=== PATIENT | female | born 1965 | race Two or more races ===

== ENCOUNTER 2016-09-09 22:38 | Emergency (ER) | payer OTHER ==
[~2016-09-09] VITALS: Ht 154.9 cm; Wt 80.7 kg
[2016-09-10] MEDS ORDERED: HYDROcodone-ACET 10/325MG TAB PO ONE (01:00)
[2016-09-10] MEDS ORDERED: KETOROLAC TROMETH 60MG/2ML VIAL IM ONE (01:00)
[2016-09-10 01:23] VITALS: BP 168/98
== END 2016-09-10 01:25 | disposition home or self-care (01) ==
LOC: ER 22:45
DX: M19.90 Unspecified osteoarthritis, unspecified site (principal); G89.29 Other chronic pain; M54.9 Dorsalgia, unspecified; J45.909 Unspecified asthma, uncomplicated; I10 Essential (primary) hypertension
CPT/HCPCS: 96372; 99283; J1885

== ENCOUNTER 2017-01-17 20:14 | Emergency (ER) | payer OTHER ==
[~2017-01-17] VITALS: Ht 157.5 cm; Wt 79.4 kg
[2017-01-17 20:30] VITALS: BP 155/99
[2017-01-17 20:59] LABS: Basophils # (auto) 0.1 uL; Basophils % (auto) 0.8 % (0.0-2.0); Eosinophils # (auto) 0.3 uL; Eosinophils % (auto) 2.5 % (0.0-7.0); Hematocrit 34.1 % (36.0-46.0); Hemoglobin 11.3 g/dL (12.2-16.2); Lymphocytes # (auto) 1.8 uL; Lymphocytes % (auto) 14.8 % (10.0-50.0); Mean Corpuscular Hemoglobin 27.8 pg (28.0-32.0); Mean Corpuscular Hgb Conc. 33.2 g/dL (32.0-36.0); Mean Corpuscular Volume 83.8 fL (80.0-100.0); Mean Platelet Volume 7.3 fL (6.9-10.8); Monocytes # (auto) 0.8 uL; Monocytes % (auto) 6.7 % (0.0-12.0); Neutrophils # (auto) 9.1 uL; Neutrophils % (auto) 75.2 % (37.0-80.0); Nucleated Red Blood Cells % 0.1 %; Platelet Count (auto) 333 10^3/uL (140-450); Red Cell Distribution Width 13.9 % (11.8-14.3); White Blood Cell 12.1 10^3/uL (4.4-10.8)
[2017-01-17 21:13] LABS: Urine Bilirubin Negative (Negative); Urine Blood Negative /uL (Negative); Urine Color Yellow (Yellow); Urine Glucose Normal (Normal); Urine Ketone Negative (Negative); Urine Nitrite Negative (Negative); Urine RBC 1 /hpf (0 - 4); Urine Squamous Epithelial Cell FEW /hpf (<5); Urine Urobilinogen Normal (Negative); Urine pH 5.5 (5.0-8.0)
[2017-01-17 21:16] LABS: Albumin 3.3 g/dL (3.4-5.0); Anion Gap 10 (5-15); Aspartate Aminotransferase 9 U/L (15-37); BUN/Creatinine Ratio 29.7; Blood Urea Nitrogen 22 mg/dL (7-18); Calcium 8.8 mg/dL (8.5-10.1); Carbon Dioxide 24 mmol/L (21-32); Chloride 106 mmol/L (98-107); GFR African American 106 mL/min; GFR Non-African American 87 mL/min; Glucose 179 mg/dL (74-106); Potassium 4.2 mmol/L (3.5-5.1); Sodium 140 mmol/L (136-145)
[2017-01-17 21:20] LABS: Alkaline Phosphatase 169 U/L (45-117); Bilirubin, Total < 0.1 mg/dL (0.2-1.0); Total Protein 7.3 g/dL (6.4-8.2)
== END 2017-01-17 23:45 | disposition left against medical advice (07) ==
LOC: EDBD 20:14 → ER 20:20
DX: M54.5 Low back pain (principal); Z53.21 Procedure and treatment not carried out due to patient leaving prior to being seen by health care provider
CPT/HCPCS: 36415; 80053; 81001; 84484; 85025; 93005

== ENCOUNTER 2023-03-25 01:21 | Inpatient (IN) | payer MEDICAID, OTHER ==
[~2023-03-25] VITALS: Ht 154.9 cm; Wt 77.0 kg
[2023-03-25 02:03] VITALS: PULSE 89; RESP 13; O2SAT 97
[2023-03-25 02:30] LABS: Basophils # (auto) 0.1 10 ^3/uL (0-0.2); Eosinophils # (auto) 0.4 10 ^3/uL (0-0.8); Eosinophils % (auto) 5.1 % (0.0-7.0); Hematocrit 29.4 % (36.0-46.0); Hemoglobin 9.6 g/dL (12.2-16.2); Lymphocytes # (auto) 1.1 10 ^3/uL (0.4-5.4); Lymphocytes % (auto) 13.4 % (10.0-50.0); Mean Corpuscular Hemoglobin 27.3 pg (28.0-32.0); Mean Corpuscular Hgb Conc. 32.8 g/dL (32.0-36.0); Mean Corpuscular Volume 83.4 fL (80.0-100.0); Monocytes # (auto) 0.8 10 ^3/uL (0-1.3); Monocytes % (auto) 9.5 % (0.0-12.0); Neutrophils # (auto) 5.6 10 ^3/uL (1.6-8.6); Red Blood Cells 3.53 10^6/uL (4.0-5.20)
[2023-03-25 02:46] LABS: Alanine Aminotransferase 17 U/L (7-40); Albumin 4.1 g/dL (3.2-4.8); Alkaline Phosphatase 173 U/L (46-116); Anion Gap 9 (5-15); Aspartate Aminotransferase 17 U/L (13-40); BUN/Creatinine Ratio 9.7 (10.0-20.0); Bilirubin, Total 0.2 mg/dL (0.2-1.0); Blood Urea Nitrogen 19 mg/dL (9-23); Carbon Dioxide 24 mmol/L (20-30); Chloride 106 mmol/L (98-107); Glucose 222 mg/dL (74-106); Partial Thromboplastin Time 31.2 SEC (24.5-34.5); Potassium 3.8 mmol/L (3.5-5.1); Prothrombin Time 10.5 sec (9.3-11.8); Sodium 139 mmol/L (136-145); Total Protein 7.2 g/dL (5.7-8.2)
[2023-03-25] MEDS ORDERED: SODIUM CHLORIDE 0.9% 1,000 ML IV ONE (05:30)
[2023-03-25 06:26] LABS: INR 0.99 (0.9-1.15); Partial Thromboplastin Time 30.5 SEC (24.5-34.5); Prothrombin Time 10.4 sec (9.3-11.8)
[2023-03-25 06:37] LABS: Basophils # (auto) 0.1 10 ^3/uL (0-0.2); Basophils % (auto) 0.7 % (0.0-2.0); Eosinophils # (auto) 0.4 10 ^3/uL (0-0.8); Hemoglobin 9.1 g/dL (12.2-16.2); Lymphocytes # (auto) 1.2 10 ^3/uL (0.4-5.4); Mean Corpuscular Volume 82.5 fL (80.0-100.0); Monocytes # (auto) 0.7 10 ^3/uL (0-1.3); Neutrophils % (auto) 69.2 % (37.0-80.0)
[2023-03-25 06:40] LABS: Eosinophils % (auto) 4.8 % (0.0-7.0); Hematocrit 28.1 % (36.0-46.0); Lymphocytes % (auto) 15.6 % (10.0-50.0); Mean Corpuscular Hemoglobin 26.6 pg (28.0-32.0); Mean Corpuscular Hgb Conc. 32.3 g/dL (32.0-36.0); Monocytes % (auto) 9.7 % (0.0-12.0); Neutrophils # (auto) 5.3 10 ^3/uL (1.6-8.6); Red Cell Distribution Width 15.9 % (11.8-14.3); White Blood Cell 7.7 10^3/uL (4.4-10.8)
[2023-03-25 10:02] VITALS: PULSE 88; RESP 17; O2SAT 94
[2023-03-25 10:58] LABS: Urine Bacteria FEW /hpf (None Seen); Urine Blood 1+ /uL (Negative); Urine Clarity HAZY (Clear); Urine Color Yellow (Yellow); Urine Mucus FEW (None Seen); Urine Protein, UAD 1+ (Negative); Urine Specific Gravity 1.021 (1.001-1.035); Urine Urobilinogen Normal (Negative); Urine WBC 45 /hpf (0 - 5)
[2023-03-25] MEDS ORDERED: KETOROLAC TROMETH 30 MG/ML 1ML VIAL IV ONE (12:45)
[2023-03-25] MEDS ORDERED: MORPHINE SULFATE INJ 2 MG/ml SYRG IV PRN (13:00)
[2023-03-25] MEDS ORDERED: MECLIZINE HCL 25 MG TAB PO PRN (13:00)
[2023-03-25] MEDS ORDERED: cefTRIAXone 1GM/50ML D5W 50 ML IV ONE (13:00)
[2023-03-25] MEDS ORDERED: ONDANSETRON HCL 4 MG/2 ML VIAL IV PRN (13:00)
[2023-03-25] MEDS ORDERED: NITROGLYCERIN 0.4 MG SL TAB SL PRN (13:00)
[2023-03-25] MEDS ORDERED: ACETAMINOPHEN 325 MG TAB PO PRN (13:00)
[2023-03-25 13:27] LABS: Triglycerides 184 mg/dL (< 150)
[2023-03-25 13:28] LABS: LDL Cholesterol 140 mg/dL (< 100)
[2023-03-25 13:29] LABS: Cholesterol 207 mg/dL (< 200); HDL Cholesterol 47 mg/dL (40-59)
[2023-03-25 13:41] LABS: Stomatocytes Few; Tear Drop Cells FEW
[2023-03-25 13:43] LABS: Platelet Estimate Adequate
[2023-03-25] MEDS: SODIUM CHLORIDE 0.9% 1,000 ML IV SCH (14:15)
[2023-03-25] MEDS ORDERED: ALBUTEROL MEDNEB 2.5 mg/3ml NEB NEB PRN (14:15)
[2023-03-25 15:33] VITALS: BP 117/84; PULSE 90; RESP 16; RESP 20; TEMP 98.2; O2SAT 95; O2SAT 96
[2023-03-25 17:00] VITALS: BP 117/84; PULSE 90; RESP 20; TEMP 98.2; O2SAT 96
[2023-03-25 20:00] VITALS: PULSE 97
[2023-03-25] MEDS: HYDROcodone-ACET 5/325MG TAB PO PRN (20:33)
[2023-03-25] MEDS: ATORVASTATIN 20 MG TAB PO SCH (21:25)
[2023-03-25 22:00] VITALS: BP 165/95; PULSE 89; RESP 22; TEMP 98.3; O2SAT 98
[2023-03-26] VITALS (8 sets, daily range): BP systolic 145–165; BP diastolic 81–95; PULSE 84–101; RESP 18–22; TEMP 98.3–98.9; O2SAT 95–99
[2023-03-26] MEDS: SODIUM CHLORIDE 0.9% 1,000 ML IV SCH ×2 (03:35→16:55)
[2023-03-26] MEDS: HYDROcodone-ACET 5/325MG TAB PO PRN (06:01)
[2023-03-26 07:02] LABS: Basophils # (auto) 0.1 10 ^3/uL (0-0.2); Basophils % (auto) 0.7 % (0.0-2.0); Eosinophils # (auto) 0.5 10 ^3/uL (0-0.8); Eosinophils % (auto) 5.8 % (0.0-7.0); Hematocrit 30.1 % (36.0-46.0); Hemoglobin 9.8 g/dL (12.2-16.2); Lymphocytes # (auto) 1.7 10 ^3/uL (0.4-5.4); Lymphocytes % (auto) 18.5 % (10.0-50.0); Mean Corpuscular Hgb Conc. 32.5 g/dL (32.0-36.0); Mean Corpuscular Volume 83.1 fL (80.0-100.0); Monocytes # (auto) 1.2 10 ^3/uL (0-1.3); Monocytes % (auto) 12.8 % (0.0-12.0); Neutrophils # (auto) 5.7 10 ^3/uL (1.6-8.6); Neutrophils % (auto) 62.2 % (37.0-80.0); Red Blood Cells 3.63 10^6/uL (4.0-5.20); Red Cell Distribution Width 15.6 % (11.8-14.3); White Blood Cell 9.2 10^3/uL (4.4-10.8)
[2023-03-26 07:51] LABS: Alanine Aminotransferase 16 U/L (7-40); Albumin 4.1 g/dL (3.2-4.8); Alkaline Phosphatase 162 U/L (46-116); Anion Gap 9 (5-15); Aspartate Aminotransferase 15 U/L (13-40); BUN/Creatinine Ratio 11.3 (10.0-20.0); Blood Urea Nitrogen 17 mg/dL (9-23); Calcium 9.4 mg/dL (8.5-10.1); Carbon Dioxide 23 mmol/L (20-30); Chloride 105 mmol/L (98-107); Glucose 181 mg/dL (74-106); Potassium 3.9 mmol/L (3.5-5.1); Sodium 137 mmol/L (136-145)
[2023-03-26 07:52] LABS: Bilirubin, Total 0.3 mg/dL (0.2-1.0); Total Protein 7.5 g/dL (5.7-8.2)
[2023-03-26] MEDS: cefTRIAXone 1GM/50ML D5W 50 ML IV SCH (09:28)
[2023-03-26] MEDS ORDERED: ENOXAPARIN SOD 40 MG/0.4 ML SYRINGE SC SCH (10:00)
[2023-03-26] MEDS ORDERED: QUEtiapine FUMARATE 25 MG TAB PO ONE (15:00)
[2023-03-26] MEDS: HALOPERIDOL LACTATE 5 MG/ML INJ VIAL IM PRN ×2 (16:03→23:51)
[2023-03-26 17:46] LABS: Protein, Urine 85.8 mg/dL (0.0-11.9)
[2023-03-26 17:49] LABS: Amphetamine Screen, Urine Neg (NEGATIVE); Barbiturate Scree,Urine Neg (NEGATIVE); Benzodiazephine Screen, Urine Neg (NEGATIVE); Cocaine Screen, Urine Neg (NEGATIVE); Creatinine, Urine 76.63 mg/dL (30.0-125.0); Creatinine, Urine 76.79 mg/dL (30.0-125.0); Urine Protein/Creatinine Ratio 1.15
[2023-03-26 17:50] LABS: Cannabinoid Screen, Urine Neg (NEGATIVE); Opiate Scree,Urine Neg (NEGATIVE); Phencyclidine Screen, Urine Neg (NEGATIVE)
[2023-03-26] MEDS ORDERED: FLUO40CA PO (18:08)
[2023-03-26] MEDS ORDERED: ALPR0.5T8 PO (18:08)
[2023-03-26] MEDS ORDERED: QUET400T13 PO (18:08)
[2023-03-26] MEDS ORDERED: LAMO200T34 PO (18:08)
[2023-03-26] MEDS ORDERED: DIVA500T13 PO (18:08)
[2023-03-26] MEDS ORDERED: BUPR300T28 PO (18:08)
[2023-03-26] MEDS ORDERED: LORazepam 2MG/ML-1ML VIAL IV PRN (21:45)
[2023-03-26] MEDS: ATORVASTATIN 20 MG TAB PO SCH (22:04)
[2023-03-27] VITALS (9 sets, daily range): BP systolic 111–211; BP diastolic 42–98; PULSE 71–115; RESP 16–20; TEMP 37.2; O2SAT 94–100
[2023-03-27] MEDS ORDERED: HALOPERIDOL LACTATE 5 MG/ML INJ VIAL IM ONE (02:00)
[2023-03-27] MEDS: SODIUM CHLORIDE 0.9% 1,000 ML IV SCH (05:02)
[2023-03-27 05:50] LABS: Chloride 106 mmol/L (98-107); Sodium 138 mmol/L (136-145)
[2023-03-27 05:51] LABS: Anion Gap 11 (5-15); Carbon Dioxide 21 mmol/L (20-30)
[2023-03-27 05:52] LABS: Calcium 9.4 mg/dL (8.5-10.1)
[2023-03-27 05:56] LABS: BUN/Creatinine Ratio 9.2 (10.0-20.0); Blood Urea Nitrogen 14 mg/dL (9-23); Glucose 218 mg/dL (74-106)
[2023-03-27] MEDS ORDERED: ALPRAZolam 0.5 MG TAB PO PRN (10:00)
[2023-03-27] MEDS ORDERED: QUEtiapine FUMARATE 100 MG TAB PO SCH (10:00)
[2023-03-27] MEDS: buPROPion HCL 75 MG TAB PO SCH (10:19)
[2023-03-27] MEDS: FLUoxetine HCL 20 MG CAP PO SCH (10:19)
[2023-03-27] MEDS: lamoTRIgine 100 MG TAB PO SCH ×2 (10:19→21:18)
[2023-03-27] MEDS: cefTRIAXone 1GM/50ML D5W 50 ML IV SCH (10:27)
[2023-03-27] MEDS ORDERED: PANTOPRAZOLE 40 MG/10 ML VIAL INJ IV ONE (11:30)
[2023-03-27] MEDS ORDERED: THIAMINE 100mg/ml INJ (200mg/2ml VIAL) IV ONE (11:30)
[2023-03-27] MEDS ORDERED: SODIUM CHLORIDE 0.9% 1,000 ML IV SCH (11:30)
[2023-03-27] MEDS ORDERED: DEXTROSE (50%) 50ML SYRG IV PRN (11:30)
[2023-03-27] MEDS: ACCU-CHEK COMFORT CURVE STRIP VI SCH ×3 (12:24→21:27)
[2023-03-27] MEDS: InsuLIN REG 1unit/0.01ml Soln (100units/ml) SC SCH ×3 (12:27→21:18)
[2023-03-27] MEDS: hydrALAZINE HCL 20 MG/ML VL IV PRN (12:29)
[2023-03-27] MEDS: HALOPERIDOL LACTATE 5 MG/ML INJ VIAL IM PRN (21:29)
[2023-03-27] MEDS ORDERED: LORazepam 2MG/ML-1ML VIAL IV PRN (23:15)
[2023-03-28] VITALS (7 sets, daily range): BP systolic 117–135; BP diastolic 57–86; PULSE 89–97; RESP 18–20; TEMP 97.9–98.8; O2SAT 92–95
[2023-03-28 00:12] LABS: Folate (Folic Acid) 12.54 ng/mL (>5.38)
[2023-03-28] MEDS: HYDROcodone-ACET 5/325MG TAB PO PRN (04:27)
[2023-03-28] MEDS: InsuLIN REG 1unit/0.01ml Soln (100units/ml) SC SCH ×4 (06:04→23:10)
[2023-03-28] MEDS: ACCU-CHEK COMFORT CURVE STRIP VI SCH ×4 (06:05→23:08)
[2023-03-28 06:06] LABS: Basophils # (auto) 0.1 10 ^3/uL (0-0.2); Basophils % (auto) 0.6 % (0.0-2.0); Eosinophils # (auto) 0.5 10 ^3/uL (0-0.8); Eosinophils % (auto) 5.8 % (0.0-7.0); Hematocrit 28.2 % (36.0-46.0); Hemoglobin 9.3 g/dL (12.2-16.2); Lymphocytes # (auto) 1.3 10 ^3/uL (0.4-5.4); Lymphocytes % (auto) 13.8 % (10.0-50.0); Mean Corpuscular Hemoglobin 27.5 pg (28.0-32.0); Mean Corpuscular Hgb Conc. 33.1 g/dL (32.0-36.0); Mean Corpuscular Volume 83.3 fL (80.0-100.0); Monocytes % (auto) 11.3 % (0.0-12.0); Neutrophils # (auto) 6.3 10 ^3/uL (1.6-8.6); Neutrophils % (auto) 68.5 % (37.0-80.0); Red Blood Cells 3.39 10^6/uL (4.0-5.20); White Blood Cell 9.1 10^3/uL (4.4-10.8)
[2023-03-28 06:21] LABS: Anion Gap 9 (5-15); Carbon Dioxide 22 mmol/L (20-30); Chloride 107 mmol/L (98-107); Potassium 3.7 mmol/L (3.5-5.1); Sodium 138 mmol/L (136-145)
[2023-03-28 06:22] LABS: Calcium 8.7 mg/dL (8.7-10.4)
[2023-03-28 06:26] LABS: Glucose 172 mg/dL (74-106)
[2023-03-28 06:27] LABS: BUN/Creatinine Ratio 8.5 (10.0-20.0); Blood Urea Nitrogen 12 mg/dL (9-23)
[2023-03-28 06:29] LABS: % Iron Saturation 8.9 % (15-50)
[2023-03-28 06:30] LABS: Folate (Folic Acid) 11.92 ng/mL (>5.38)
[2023-03-28] MEDS ORDERED: NALOXONE HCL 0.4 MG/ML VIAL ONE (08:44)
[2023-03-28] MEDS ORDERED: MIDAZOLAM HCL 5 MG/ML-1ML VIAL ONE (08:45)
[2023-03-28] MEDS ORDERED: SODIUM CHLORIDE LOCK 0 ML ONE (08:45)
[2023-03-28] MEDS ORDERED: LIDOCAINE VISCOUS 2% 15ML UD ONE (08:45)
[2023-03-28] MEDS ORDERED: FLUMAZENIL 0.1 MG/ML INJ 10ML MDV IV ONE (08:45)
[2023-03-28] MEDS ORDERED: fentaNYL CITRATE 100 MCG/2 ML VL ONE (08:45)
[2023-03-28] MEDS ORDERED: diphenhdrAMINE HCL 50 MG/1 ML VL ONE (08:45)
[2023-03-28] MEDS: buPROPion HCL 75 MG TAB PO SCH (10:00)
[2023-03-28] MEDS: lamoTRIgine 100 MG TAB PO SCH ×2 (10:00→20:48)
[2023-03-28] MEDS: FLUoxetine HCL 20 MG CAP PO SCH (10:00)
[2023-03-28] MEDS: cefTRIAXone 1GM/50ML D5W 50 ML IV SCH (10:54)
[2023-03-28] MEDS: PANTOPRAZOLE 40 MG/10 ML VIAL INJ IV SCH (10:54)
[2023-03-28] MEDS: THIAMINE 100mg/ml INJ (200mg/2ml VIAL) IV SCH (10:56)
[2023-03-28] MEDS: FERROUS SULFATE 325mg EC TAB PO SCH (18:00)
[2023-03-29] VITALS (7 sets, daily range): BP systolic 131–142; BP diastolic 64–80; PULSE 90–107; RESP 18–20; TEMP 98–98.9; O2SAT 95–100
[2023-03-29 05:53] LABS: Basophils # (auto) 0.1 10 ^3/uL (0-0.2); Eosinophils # (auto) 0.5 10 ^3/uL (0-0.8); Lymphocytes # (auto) 1.1 10 ^3/uL (0.4-5.4); Monocytes # (auto) 0.8 10 ^3/uL (0-1.3)
[2023-03-29 05:57] LABS: Basophils % (auto) 0.8 % (0.0-2.0); Eosinophils % (auto) 6.4 % (0.0-7.0); Hematocrit 29.7 % (36.0-46.0); Hemoglobin 9.5 g/dL (12.2-16.2); Lymphocytes % (auto) 13.4 % (10.0-50.0); Mean Corpuscular Hemoglobin 26.8 pg (28.0-32.0); Mean Corpuscular Volume 83.8 fL (80.0-100.0); Monocytes % (auto) 9.8 % (0.0-12.0); Neutrophils # (auto) 5.7 10 ^3/uL (1.6-8.6); Neutrophils % (auto) 69.6 % (37.0-80.0); Red Blood Cells 3.54 10^6/uL (4.0-5.20); Red Cell Distribution Width 15.9 % (11.8-14.3); White Blood Cell 8.2 10^3/uL (4.4-10.8)
[2023-03-29 06:06] LABS: Chloride 109 mmol/L (98-107); Potassium 3.8 mmol/L (3.5-5.1); Sodium 139 mmol/L (136-145)
[2023-03-29 06:08] LABS: Anion Gap 8 (5-15); Calcium 9.1 mg/dL (8.5-10.1); Carbon Dioxide 22 mmol/L (20-30)
[2023-03-29] MEDS: ACCU-CHEK COMFORT CURVE STRIP VI SCH ×4 (06:11→23:32)
[2023-03-29] MEDS: InsuLIN REG 1unit/0.01ml Soln (100units/ml) SC SCH ×4 (06:12→23:37)
[2023-03-29 06:13] LABS: BUN/Creatinine Ratio 7.7 (10.0-20.0); Blood Urea Nitrogen 11 mg/dL (9-23); Glucose 170 mg/dL (74-106)
[2023-03-29] MEDS: FERROUS SULFATE 325mg EC TAB PO SCH ×2 (09:17→17:38)
[2023-03-29] MEDS: cefTRIAXone 1GM/50ML D5W 50 ML IV SCH (09:18)
[2023-03-29] MEDS: buPROPion HCL 75 MG TAB PO SCH (09:26)
[2023-03-29] MEDS: lamoTRIgine 100 MG TAB PO SCH ×2 (09:26→20:59)
[2023-03-29] MEDS: FLUoxetine HCL 20 MG CAP PO SCH (09:26)
[2023-03-29] MEDS: PANTOPRAZOLE 40 MG/10 ML VIAL INJ IV SCH (09:30)
[2023-03-29] MEDS: THIAMINE 100mg/ml INJ (200mg/2ml VIAL) IV SCH (09:31)
[2023-03-29] MEDS ORDERED: EZ PAQUE SUSP 12OZ BTL ONE (14:32)
[2023-03-29] MEDS ORDERED: BARIUM SULFATE 98% 340 GM PWDR ONE (14:32)
[2023-03-29] MEDS ORDERED: GASTROGRAFIN 120 ML SOL ONE (14:59)
[2023-03-29] MEDS: HYDROcodone-ACET 5/325MG TAB PO PRN (22:41)
[2023-03-30 04:55] VITALS: BP 141/69; PULSE 86; RESP 18; TEMP 98.1; O2SAT 97
[2023-03-30] MEDS: ACCU-CHEK COMFORT CURVE STRIP VI SCH ×2 (06:22→12:00)
[2023-03-30] MEDS: InsuLIN REG 1unit/0.01ml Soln (100units/ml) SC SCH ×2 (06:26→11:26)
[2023-03-30 08:00] VITALS: PULSE 88
[2023-03-30 09:04] VITALS: BP 151/82; PULSE 86; RESP 16; TEMP 98.6; O2SAT 93
[2023-03-30] MEDS ORDERED: THIAMINE HCL 100 MG TAB PO SCH (10:00)
[2023-03-30] MEDS ORDERED: PANTOPRAZOLE 40 MG TAB PO SCH (10:00)
[2023-03-30] MEDS: lamoTRIgine 100 MG TAB PO SCH (10:03)
[2023-03-30] MEDS: FERROUS SULFATE 325mg EC TAB PO SCH (10:03)
[2023-03-30] MEDS: FLUoxetine HCL 20 MG CAP PO SCH (10:04)
[2023-03-30] MEDS: buPROPion HCL 75 MG TAB PO SCH (10:04)
[2023-03-30] MEDS: cefTRIAXone 1GM/50ML D5W 50 ML IV SCH (10:05)
[2023-03-30] MEDS: HYDROcodone-ACET 5/325MG TAB PO PRN (10:19)
[2023-03-30] MEDS: hydrALAZINE HCL 20 MG/ML VL IV PRN (10:35)
[2023-03-30] MEDS ORDERED: PANT40T PO (11:06)
[2023-03-30] MEDS ORDERED: METF-370 PO (11:12)
[2023-03-30 12:59] VITALS: BP 135/79; PULSE 96; RESP 18; TEMP 98.1; O2SAT 96
== END 2023-03-30 17:45 | disposition home health service (06) | DRG 469 ==
LOC: ER 01:21 → EDBD 01:21 → TELE 12:52 → TELE-WESTW 14:53
PROVIDERS: ADMIT Nurse Practitioner Family; ATTEND Internal Medicine
DX: N17.0 Acute kidney failure with tubular necrosis (principal); G92.8 Other toxic encephalopathy; I13.0 Hypertensive heart and chronic kidney disease with heart failure and stage 1 through stage 4 chronic kidney disease, or unspecified chronic kidney disease; D63.8 Anemia in other chronic diseases classified elsewhere; I50.40 Unspecified combined systolic (congestive) and diastolic (congestive) heart failure; E11.22 Type 2 diabetes mellitus with diabetic chronic kidney disease; E86.9 Volume depletion, unspecified; N39.0 Urinary tract infection, site not specified; R29.6 Repeated falls; F31.32 Bipolar disorder, current episode depressed, moderate; E66.01 Morbid (severe) obesity due to excess calories; F20.9 Schizophrenia, unspecified; F41.9 Anxiety disorder, unspecified; K56.41 Fecal impaction; J45.909 Unspecified asthma, uncomplicated; N18.32 Chronic kidney disease, stage 3b; K22.89 Other specified disease of esophagus; K21.9 Gastro-esophageal reflux disease without esophagitis; E11.65 Type 2 diabetes mellitus with hyperglycemia; Z83.3 Family history of diabetes mellitus; Z79.899 Other long term (current) drug therapy; Z68.32 Body mass index [BMI] 32.0-32.9, adult; Z91.81 History of falling; Z90.710 Acquired absence of both cervix and uterus; Z91.148 Patient's other noncompliance with medication regimen for other reason
CPT/HCPCS: 36415; 70450; 70551; 71045; 71250; 73502; 74176; 74220; 80048; 80053; 80061; 80164; 80307; 81001; 82140; 82270; 82570; 82607; 82746; 82962; 83036; 83540; 83550; 83735; 83880; 83930; 84156; 84300; 84443; 84484; 85025; 85610; 85730; 87086; 93005; 93306; 93886; 96361; 96365; 96375; 97110; 97116; 97163; 97530; A4565; C9113; G0378; J0696; J1815; J1885; J2250

== ENCOUNTER 2023-04-01 11:09 | Inpatient (IN) | payer MEDICAID ==
[~2023-04-01] VITALS: Ht 154.9 cm; Wt 81.9 kg
[~2023-04-01 11:09] MED LIST: ALPR0.5T8 PO; BUPR300T28 PO; DIVA500T13 PO; FLUO40CA PO; LAMO200T34 PO; METF-370 PO; PANT40T PO; QUET400T13 PO
[2023-04-01] MEDS ORDERED: ONDANSETRON ODT 4 MG TAB PO ONE (11:30)
[2023-04-01] MEDS ORDERED: MECLIZINE HCL 25 MG TAB PO ONE (11:30)
[2023-04-01 11:54] LABS: Basophils # (auto) 0 10 ^3/uL (0-0.2); Basophils % (auto) 0.4 % (0.0-2.0); Eosinophils # (auto) 0.5 10 ^3/uL (0-0.8); Eosinophils % (auto) 5.4 % (0.0-7.0); Hematocrit 29.1 % (36.0-46.0); Hemoglobin 9.5 g/dL (12.2-16.2); Lymphocytes # (auto) 0.7 10 ^3/uL (0.4-5.4); Mean Corpuscular Hemoglobin 27.4 pg (28.0-32.0); Mean Corpuscular Hgb Conc. 32.7 g/dL (32.0-36.0); Mean Corpuscular Volume 83.8 fL (80.0-100.0); Monocytes # (auto) 0.7 10 ^3/uL (0-1.3); Monocytes % (auto) 7.4 % (0.0-12.0); Neutrophils # (auto) 7.2 10 ^3/uL (1.6-8.6); Neutrophils % (auto) 78.8 % (37.0-80.0); Red Blood Cells 3.47 10^6/uL (4.0-5.20); Red Cell Distribution Width 16.5 % (11.8-14.3); White Blood Cell 9.2 10^3/uL (4.4-10.8)
[2023-04-01 12:08] LABS: Acetaminophen < 2.0 UG/ML (10.0-20.0); Alanine Aminotransferase 10 U/L (7-40); Albumin 4.1 g/dL (3.2-4.8); Alkaline Phosphatase 187 U/L (46-116); Anion Gap 9 (5-15); Aspartate Aminotransferase 12 U/L (13-40); BUN/Creatinine Ratio 9.9 (10.0-20.0); Blood Alcohol < 3.0 mg/dL (<10); Blood Urea Nitrogen 17 mg/dL (9-23); Calcium 8.7 mg/dL (8.7-10.4); Carbon Dioxide 23 mmol/L (20-30); Chloride 107 mmol/L (98-107); Glucose 271 mg/dL (74-106); Lipase 76 U/L (12-53); Magnesium 1.8 mg/dL (1.6-2.6); Sodium 139 mmol/L (136-145); Valproic Acid (Depakene) 23.3 ug/mL (50-100)
[2023-04-01 12:09] LABS: Bilirubin, Total < 0.2 mg/dL (0.2-1.0); Total Protein 7.3 g/dL (5.7-8.2)
[2023-04-01 12:10] LABS: INR 0.95 (0.9-1.15)
[2023-04-01 12:15] LABS: Salicylate < 3.0 mg/dL (2.8-20.0)
[2023-04-01 14:10] VITALS: RESP 16
[2023-04-01] MEDS ORDERED: MECLIZINE HCL 25 MG TAB PO PRN (15:00)
[2023-04-01] MEDS ORDERED: DEXTROSE (50%) 50ML SYRG IV PRN (15:00)
[2023-04-01] MEDS ORDERED: DOCUSATE SOD 100 MG CAP PO PRN (15:00)
[2023-04-01] MEDS: SODIUM CHLORIDE 0.9% 1,000 ML IV SCH ×2 (16:23→23:20)
[2023-04-01] MEDS: ACCU-CHEK COMFORT CURVE STRIP VI SCH (18:13)
[2023-04-01] MEDS: InsuLIN REG 1unit/0.01ml Soln (100units/ml) SC SCH (18:13)
[2023-04-02] VITALS (7 sets, daily range): BP systolic 104–159; BP diastolic 65–86; PULSE 97–106; RESP 18–22; TEMP 97.5–98.6; O2SAT 91–97
[2023-04-02] MEDS: ACCU-CHEK COMFORT CURVE STRIP VI SCH ×5 (00:19→23:45)
[2023-04-02] MEDS: InsuLIN REG 1unit/0.01ml Soln (100units/ml) SC SCH ×5 (05:02→23:45)
[2023-04-02 05:30] LABS: Basophils # (auto) 0 10 ^3/uL (0-0.2); Hemoglobin 8.4 g/dL (12.2-16.2); Mean Corpuscular Hemoglobin 27.2 pg (28.0-32.0); Mean Corpuscular Hgb Conc. 32.7 g/dL (32.0-36.0); Mean Corpuscular Volume 83.2 fL (80.0-100.0); Monocytes # (auto) 0.8 10 ^3/uL (0-1.3)
[2023-04-02 05:34] LABS: Basophils % (auto) 0.5 % (0.0-2.0); Eosinophils # (auto) 0.6 10 ^3/uL (0-0.8); Eosinophils % (auto) 6.8 % (0.0-7.0); Hematocrit 25.7 % (36.0-46.0); Lymphocytes # (auto) 1.1 10 ^3/uL (0.4-5.4); Lymphocytes % (auto) 12.4 % (10.0-50.0); Monocytes % (auto) 8.9 % (0.0-12.0); Neutrophils # (auto) 6.4 10 ^3/uL (1.6-8.6); Neutrophils % (auto) 71.4 % (37.0-80.0); Red Blood Cells 3.09 10^6/uL (4.0-5.20); Red Cell Distribution Width 15.9 % (11.8-14.3)
[2023-04-02 05:55] LABS: Alanine Aminotransferase 13 U/L (7-40); Albumin 3.7 g/dL (3.2-4.8); Alkaline Phosphatase 155 U/L (46-116); Anion Gap 10 (5-15); Aspartate Aminotransferase 25 U/L (13-40); BUN/Creatinine Ratio 10.2 (10.0-20.0); Bilirubin, Total < 0.2 mg/dL (0.2-1.0); Blood Urea Nitrogen 16 mg/dL (9-23); Calcium 8.8 mg/dL (8.5-10.1); Carbon Dioxide 22 mmol/L (20-30); Chloride 108 mmol/L (98-107); Potassium 4.4 mmol/L (3.5-5.1); Sodium 140 mmol/L (136-145); Total Protein 6.5 g/dL (5.7-8.2)
[2023-04-02 06:11] LABS: Glucose 165 mg/dL (74-106)
[2023-04-02] MEDS ORDERED: LORazepam 2MG/ML-1ML VIAL IV PRN (09:30)
[2023-04-02] MEDS ORDERED: HALOPERIDOL LACTATE 5 MG/ML INJ VIAL IM PRN (09:30)
[2023-04-02] MEDS ORDERED: QUEtiapine FUMARATE 100 MG TAB PO SCH ×2 (10:00→12:45)
[2023-04-02] MEDS: PANTOPRAZOLE 40 MG/10 ML VIAL INJ IV SCH (10:22)
[2023-04-02] MEDS: ENOXAPARIN SOD 40 MG/0.4 ML SYRINGE SC SCH (10:22)
[2023-04-02] MEDS: SODIUM CHLORIDE 0.9% 1,000 ML IV SCH (10:24)
[2023-04-02 10:49] LABS: Triglycerides 195 mg/dL (< 150)
[2023-04-02 10:50] LABS: LDL Cholesterol 79 mg/dL (< 100)
[2023-04-02 10:51] LABS: Cholesterol 148 mg/dL (< 200); HDL Cholesterol 44 mg/dL (40-59)
[2023-04-02 11:49] LABS: Lipase 48 U/L (12-53)
[2023-04-02] MEDS ORDERED: ASPirin 325 MG TAB PO ONE (13:15)
[2023-04-02] MEDS ORDERED: ERGOCALCIFEROL 50,000 UNIT(1.25MG) CAP PO SCH (21:00)
[2023-04-02] MEDS: ATORVASTATIN 20 MG TAB PO SCH (21:42)
[2023-04-03 05:00] VITALS: BP 118/70; PULSE 94; RESP 18; TEMP 97.7; O2SAT 97
[2023-04-03 05:48] LABS: Basophils # (auto) 0.1 10 ^3/uL (0-0.2); Lymphocytes # (auto) 1.5 10 ^3/uL (0.4-5.4); Nucleated Red Blood Cells % 0.1 %
[2023-04-03 05:51] LABS: Basophils % (auto) 0.9 % (0.0-2.0); Eosinophils # (auto) 0.7 10 ^3/uL (0-0.8); Eosinophils % (auto) 8.9 % (0.0-7.0); Hematocrit 26.9 % (36.0-46.0); Hemoglobin 8.8 g/dL (12.2-16.2); Lymphocytes % (auto) 19.8 % (10.0-50.0); Mean Corpuscular Hemoglobin 27.2 pg (28.0-32.0); Mean Corpuscular Hgb Conc. 32.5 g/dL (32.0-36.0); Mean Corpuscular Volume 83.6 fL (80.0-100.0); Monocytes # (auto) 0.8 10 ^3/uL (0-1.3); Monocytes % (auto) 10.6 % (0.0-12.0); Neutrophils # (auto) 4.6 10 ^3/uL (1.6-8.6); Neutrophils % (auto) 59.8 % (37.0-80.0); Red Blood Cells 3.22 10^6/uL (4.0-5.20); Red Cell Distribution Width 16.3 % (11.8-14.3); White Blood Cell 7.6 10^3/uL (4.4-10.8)
[2023-04-03 06:04] LABS: Alanine Aminotransferase 13 U/L (7-40); Alkaline Phosphatase 150 U/L (46-116); Anion Gap 8 (5-15); BUN/Creatinine Ratio 8.3 (10.0-20.0); Blood Urea Nitrogen 13 mg/dL (9-23); Calcium 8.8 mg/dL (8.5-10.1); Carbon Dioxide 25 mmol/L (20-30); Chloride 106 mmol/L (98-107); Glucose 122 mg/dL (74-106); Potassium 5.2 mmol/L (3.5-5.1); Sodium 139 mmol/L (136-145)
[2023-04-03 06:05] LABS: Albumin 3.6 g/dL (3.2-4.8); Aspartate Aminotransferase 25 U/L (13-40); Bilirubin, Total < 0.2 mg/dL (0.2-1.0); Total Protein 6.5 g/dL (5.7-8.2)
[2023-04-03] MEDS: ACCU-CHEK COMFORT CURVE STRIP VI SCH ×3 (06:30→17:26)
[2023-04-03] MEDS: InsuLIN REG 1unit/0.01ml Soln (100units/ml) SC SCH ×3 (06:31→17:33)
[2023-04-03 06:52] LABS: Lipase 63 U/L (12-53)
[2023-04-03 08:49] VITALS: BP 122/69; PULSE 93; RESP 21; TEMP 98.7; O2SAT 96
[2023-04-03] MEDS: PANTOPRAZOLE 40 MG/10 ML VIAL INJ IV SCH (09:11)
[2023-04-03] MEDS: ENOXAPARIN SOD 40 MG/0.4 ML SYRINGE SC SCH (09:11)
[2023-04-03] MEDS: ASPirin 81 mg TAB PO SCH (09:11)
[2023-04-03] MEDS: MORPHINE SULFATE INJ 2 MG/ml SYRG IV PRN ×2 (09:13→17:35)
[2023-04-03 10:42] LABS: Free T3 1.93 pg/mL (2.3-4.2); Free T4 (Free Thyroxine) 0.81 ng/dL (0.89-1.76)
[2023-04-03 12:35] VITALS: BP_SYST 99; PULSE 94; RESP 18; TEMP 98.6; O2SAT 93
[2023-04-03 16:47] VITALS: BP 156/94; PULSE 93; RESP 20; TEMP 98.2; O2SAT 94
[2023-04-03 20:00] VITALS: PULSE 93; RESP 20
[2023-04-03] MEDS: ONDANSETRON HCL 4 MG/2 ML VIAL IV PRN (21:24)
[2023-04-03] MEDS: ATORVASTATIN 20 MG TAB PO SCH (21:42)
[2023-04-03 22:00] VITALS: BP 153/96; PULSE 94; RESP 16; TEMP 98.2; O2SAT 96
[2023-04-03] MEDS: MUPIROCIN 2% OINT 15gm or 22gm FOR MRSA NARES EACHNOSTRI SCH (22:05)
[2023-04-04] VITALS (7 sets, daily range): BP systolic 105–112; BP diastolic 58–75; PULSE 88–99; RESP 16–20; TEMP 97.6–98.6; O2SAT 93–100
[2023-04-04] MEDS: InsuLIN REG 1unit/0.01ml Soln (100units/ml) SC SCH ×4 (00:13→17:16)
[2023-04-04] MEDS ORDERED: QUEtiapine FUMARATE 100 MG TAB PO ONE (01:15)
[2023-04-04] MEDS: QUEtiapine FUMARATE 100 MG TAB PO SCH ×2 (01:21→22:16)
[2023-04-04 01:27] LABS: Urine Bacteria NONE SEEN /hpf (None Seen); Urine Blood 1+ /uL (Negative); Urine Clarity Clear (Clear); Urine Color Colorless (Yellow); Urine Protein, UAD TRACE (Negative); Urine Specific Gravity 1.012 (1.001-1.035); Urine Urobilinogen Normal (Negative); Urine WBC 41 /hpf (0 - 5); Urine pH 6.5 (5.0-8.0)
[2023-04-04 01:43] LABS: Amphetamine Screen, Urine Neg (NEGATIVE); Barbiturate Scree,Urine Neg (NEGATIVE); Benzodiazephine Screen, Urine Neg (NEGATIVE); Cocaine Screen, Urine Neg (NEGATIVE); Opiate Scree,Urine Pos (NEGATIVE)
[2023-04-04 01:44] LABS: Cannabinoid Screen, Urine Neg (NEGATIVE); Phencyclidine Screen, Urine Neg (NEGATIVE)
[2023-04-04 05:16] LABS: Basophils # (auto) 0 10 ^3/uL (0-0.2); Basophils % (auto) 0.5 % (0.0-2.0); Eosinophils # (auto) 0.7 10 ^3/uL (0-0.8); Eosinophils % (auto) 7.2 % (0.0-7.0); Hematocrit 26.6 % (36.0-46.0); Hemoglobin 8.7 g/dL (12.2-16.2); Lymphocytes # (auto) 1.4 10 ^3/uL (0.4-5.4); Lymphocytes % (auto) 15.4 % (10.0-50.0); Mean Corpuscular Hgb Conc. 32.8 g/dL (32.0-36.0); Mean Corpuscular Volume 82.2 fL (80.0-100.0); Monocytes % (auto) 11.3 % (0.0-12.0); Neutrophils % (auto) 65.6 % (37.0-80.0); Red Blood Cells 3.24 10^6/uL (4.0-5.20); Red Cell Distribution Width 15.9 % (11.8-14.3); White Blood Cell 9.2 10^3/uL (4.4-10.8)
[2023-04-04 05:27] LABS: % Iron Saturation 13.7 % (15-50)
[2023-04-04 05:29] LABS: Alanine Aminotransferase 13 U/L (7-40); Albumin 3.6 g/dL (3.2-4.8); Alkaline Phosphatase 146 U/L (46-116); Anion Gap 4 (5-15); Aspartate Aminotransferase 20 U/L (13-40); Bilirubin, Total 0.2 mg/dL (0.2-1.0); Blood Urea Nitrogen 14 mg/dL (9-23); Calcium 8.5 mg/dL (8.7-10.4); Carbon Dioxide 28 mmol/L (20-30); Chloride 103 mmol/L (98-107); Glucose 157 mg/dL (74-106); Magnesium 1.8 mg/dL (1.6-2.6); Potassium 5.1 mmol/L (3.5-5.1); Sodium 135 mmol/L (136-145); Total Protein 6.5 g/dL (5.7-8.2)
[2023-04-04 05:31] LABS: Folate (Folic Acid) 7.97 ng/mL (>5.38); Prolactin 11.75 ng/mL (2.8-29.2)
[2023-04-04] MEDS: ACCU-CHEK COMFORT CURVE STRIP VI SCH ×4 (06:14→17:16)
[2023-04-04] MEDS: LEVOTHYROXINE SODIUM 50 MCG TAB PO SCH (06:15)
[2023-04-04] MEDS ORDERED: lamoTRIgine 100 MG TAB PO SCH (10:00)
[2023-04-04] MEDS ORDERED: lamoTRIgine 100 MG TAB PO ONE (10:00)
[2023-04-04] MEDS: PANTOPRAZOLE 40 MG/10 ML VIAL INJ IV SCH (10:21)
[2023-04-04] MEDS: ENOXAPARIN SOD 40 MG/0.4 ML SYRINGE SC SCH (10:22)
[2023-04-04] MEDS: buPROPion HCL 75 MG TAB PO SCH (10:22)
[2023-04-04] MEDS: ASPirin 81 mg TAB PO SCH (10:22)
[2023-04-04] MEDS: FLUoxetine HCL 20 MG CAP PO SCH (10:22)
[2023-04-04] MEDS: lamoTRIgine 100 MG TAB PO SCH ×2 (10:23→22:17)
[2023-04-04] MEDS: MUPIROCIN 2% OINT 15gm or 22gm FOR MRSA NARES EACHNOSTRI SCH ×2 (10:42→22:27)
[2023-04-04] MEDS: FERROUS SULFATE 325mg EC TAB PO SCH (17:15)
[2023-04-04] MEDS: ATORVASTATIN 20 MG TAB PO SCH (22:17)
[2023-04-04] MEDS: MORPHINE SULFATE INJ 2 MG/ml SYRG IV PRN (22:22)
[2023-04-04] MEDS: ONDANSETRON HCL 4 MG/2 ML VIAL IV PRN (22:22)
[2023-04-05] VITALS (9 sets, daily range): BP systolic 103–138; BP diastolic 62–82; PULSE 87–103; RESP 18–20; TEMP 97.5–98.4; O2SAT 92–100
[2023-04-05] MEDS: InsuLIN REG 1unit/0.01ml Soln (100units/ml) SC SCH ×4 (00:19→18:46)
[2023-04-05] MEDS: ACCU-CHEK COMFORT CURVE STRIP VI SCH ×4 (00:20→18:41)
[2023-04-05] MEDS ORDERED: HYDROcodone-ACET 5/325MG TAB PO ONE (05:45)
[2023-04-05 06:11] LABS: Basophils # (auto) 0.1 10 ^3/uL (0-0.2); Basophils % (auto) 0.7 % (0.0-2.0); Eosinophils # (auto) 0.7 10 ^3/uL (0-0.8); Hemoglobin 8.9 g/dL (12.2-16.2); Lymphocytes # (auto) 1.6 10 ^3/uL (0.4-5.4); Monocytes # (auto) 1.1 10 ^3/uL (0-1.3); Nucleated Red Blood Cells % 0.1 %; Red Cell Distribution Width 15.9 % (11.8-14.3); White Blood Cell 10.3 10^3/uL (4.4-10.8)
[2023-04-05 06:14] LABS: Hematocrit 27.9 % (36.0-46.0); Lymphocytes % (auto) 15.5 % (10.0-50.0); Mean Corpuscular Hemoglobin 26.5 pg (28.0-32.0); Mean Corpuscular Volume 82.8 fL (80.0-100.0); Monocytes % (auto) 10.3 % (0.0-12.0); Neutrophils # (auto) 6.9 10 ^3/uL (1.6-8.6); Neutrophils % (auto) 66.5 % (37.0-80.0); Red Blood Cells 3.37 10^6/uL (4.0-5.20)
[2023-04-05 06:24] LABS: Alanine Aminotransferase 16 U/L (7-40); Albumin 3.6 g/dL (3.2-4.8); Alkaline Phosphatase 156 U/L (46-116); Anion Gap 6 (5-15); Aspartate Aminotransferase 19 U/L (13-40); BUN/Creatinine Ratio 11.2 (10.0-20.0); Blood Urea Nitrogen 20 mg/dL (9-23); Calcium 8.2 mg/dL (8.7-10.4); Carbon Dioxide 27 mmol/L (20-30); Chloride 101 mmol/L (98-107); Glucose 99 mg/dL (74-106); Sodium 134 mmol/L (136-145)
[2023-04-05 06:25] LABS: Bilirubin, Total < 0.2 mg/dL (0.2-1.0); Total Protein 6.3 g/dL (5.7-8.2)
[2023-04-05] MEDS: LEVOTHYROXINE SODIUM 50 MCG TAB PO SCH (06:33)
[2023-04-05 06:37] LABS: Potassium 5.7 mmol/L (3.5-5.1)
[2023-04-05] MEDS ORDERED: ALBUTEROL SULF 2.5 MG/0.5ML(0.5%) NEB SOLN NEB ONE (09:15)
[2023-04-05] MEDS ORDERED: CALCIUM GLUC 1,000mg/50ml-NS 50 ML IV ONE (09:15)
[2023-04-05] MEDS ORDERED: FUROSEMIDE 20 MG/2 ML VIAL IV ONE (09:15)
[2023-04-05] MEDS ORDERED: SODIUM CHLORIDE 0.9% 2,450 ML IV ONE (09:15)
[2023-04-05] MEDS: ENOXAPARIN SOD 40 MG/0.4 ML SYRINGE SC SCH (10:21)
[2023-04-05] MEDS: PANTOPRAZOLE 40 MG/10 ML VIAL INJ IV SCH (10:21)
[2023-04-05] MEDS: lamoTRIgine 100 MG TAB PO SCH ×2 (10:22→22:27)
[2023-04-05] MEDS: FERROUS SULFATE 325mg EC TAB PO SCH ×2 (10:22→18:40)
[2023-04-05] MEDS: ASPirin 81 mg TAB PO SCH (10:22)
[2023-04-05] MEDS: FLUoxetine HCL 20 MG CAP PO SCH (10:22)
[2023-04-05] MEDS: MUPIROCIN 2% OINT 15gm or 22gm FOR MRSA NARES EACHNOSTRI SCH ×2 (10:23→22:00)
[2023-04-05] MEDS: buPROPion HCL 75 MG TAB PO SCH (10:23)
[2023-04-05] MEDS ORDERED: DEXTROSE (50%) 50ML SYRG IV ONE (11:15)
[2023-04-05] MEDS ORDERED: InsuLIN REG 1unit/0.01ml Soln (100units/ml) IV ONE (11:15)
[2023-04-05] MEDS ORDERED: ASPI-325 PO (11:18)
[2023-04-05] MEDS ORDERED: ATOR20TA50 PO (11:18)
[2023-04-05] MEDS ORDERED: KETOROLAC TROMETH 30 MG/ML 1ML VIAL IV ONE (12:45)
[2023-04-05] MEDS ORDERED: SODIUM ZIRCONIUM CYCL 10 GM PAK PO ONE (17:00)
[2023-04-05] MEDS: ATORVASTATIN 20 MG TAB PO SCH (22:27)
[2023-04-05] MEDS: QUEtiapine FUMARATE 100 MG TAB PO SCH (22:27)
[2023-04-06] MEDS: ACCU-CHEK COMFORT CURVE STRIP VI SCH ×3 (01:29→11:29)
[2023-04-06 05:00] VITALS: BP 108/62; PULSE 102; RESP 19; TEMP 97.8; O2SAT 92
[2023-04-06] MEDS: InsuLIN REG 1unit/0.01ml Soln (100units/ml) SC SCH ×3 (05:40→11:34)
[2023-04-06] MEDS: LEVOTHYROXINE SODIUM 50 MCG TAB PO SCH (06:24)
[2023-04-06] MEDS: MORPHINE SULFATE INJ 2 MG/ml SYRG IV PRN (07:01)
[2023-04-06 08:00] VITALS: PULSE 86; PULSE 98; RESP 19; O2SAT 96
[2023-04-06 09:00] VITALS: BP 112/52; PULSE 86; RESP 20; TEMP 98.3; O2SAT 94
[2023-04-06] MEDS: FERROUS SULFATE 325mg EC TAB PO SCH (09:14)
[2023-04-06] MEDS: lamoTRIgine 100 MG TAB PO SCH (09:38)
[2023-04-06] MEDS: ASPirin 81 mg TAB PO SCH (09:38)
[2023-04-06] MEDS: MUPIROCIN 2% OINT 15gm or 22gm FOR MRSA NARES EACHNOSTRI SCH (09:39)
[2023-04-06] MEDS: FLUoxetine HCL 20 MG CAP PO SCH (09:39)
[2023-04-06] MEDS: PANTOPRAZOLE 40 MG/10 ML VIAL INJ IV SCH (09:39)
[2023-04-06 09:40] LABS: Eosinophils # (auto) 0.5 10 ^3/uL (0-0.8); Monocytes # (auto) 0.9 10 ^3/uL (0-1.3)
[2023-04-06 09:41] LABS: Basophils # (auto) 0.1 10 ^3/uL (0-0.2); Basophils % (auto) 0.5 % (0.0-2.0); Eosinophils % (auto) 4.6 % (0.0-7.0); Hematocrit 25.3 % (36.0-46.0); Hemoglobin 8.3 g/dL (12.2-16.2); Lymphocytes # (auto) 1.1 10 ^3/uL (0.4-5.4); Lymphocytes % (auto) 10.5 % (10.0-50.0); Mean Corpuscular Hemoglobin 27.5 pg (28.0-32.0); Mean Corpuscular Hgb Conc. 32.9 g/dL (32.0-36.0); Mean Corpuscular Volume 83.6 fL (80.0-100.0); Monocytes % (auto) 8.3 % (0.0-12.0); Neutrophils % (auto) 76.1 % (37.0-80.0); Red Blood Cells 3.02 10^6/uL (4.0-5.20); Red Cell Distribution Width 15.8 % (11.8-14.3); White Blood Cell 10.5 10^3/uL (4.4-10.8)
[2023-04-06] MEDS: ENOXAPARIN SOD 40 MG/0.4 ML SYRINGE SC SCH (09:46)
[2023-04-06] MEDS: buPROPion HCL 75 MG TAB PO SCH (09:46)
[2023-04-06 10:33] LABS: Alanine Aminotransferase 12 U/L (7-40); Alkaline Phosphatase 149 U/L (46-116); Anion Gap 5 (5-15); BUN/Creatinine Ratio 10.2 (10.0-20.0); Blood Urea Nitrogen 20 mg/dL (9-23); Calcium 8.6 mg/dL (8.5-10.1); Carbon Dioxide 26 mmol/L (20-30); Chloride 104 mmol/L (98-107); Glucose 170 mg/dL (74-106); Sodium 135 mmol/L (136-145)
[2023-04-06 10:35] LABS: Albumin 3.4 g/dL (3.2-4.8); Aspartate Aminotransferase 9 U/L (13-40); Bilirubin, Total < 0.2 mg/dL (0.2-1.0); Total Protein 6.2 g/dL (5.7-8.2)
[2023-04-06 13:05] VITALS: BP 98/56; PULSE 75; RESP 18; TEMP 98; O2SAT 95
[2023-04-06 14:29] VITALS: BP 134/72; TEMP 36.7
== END 2023-04-06 16:20 | disposition home or self-care (01) | DRG 45 ==
LOC: ER 11:09 → TELE 15:23 → TELE-WESTW 23:48
PROVIDERS: ADMIT Internal Medicine; ATTEND Internal Medicine
DX: I63.81 Other cerebral infarction due to occlusion or stenosis of small artery (principal); K85.90 Acute pancreatitis without necrosis or infection, unspecified; E11.22 Type 2 diabetes mellitus with diabetic chronic kidney disease; D63.8 Anemia in other chronic diseases classified elsewhere; G45.0 Vertebro-basilar artery syndrome; D50.9 Iron deficiency anemia, unspecified; E11.40 Type 2 diabetes mellitus with diabetic neuropathy, unspecified; E11.65 Type 2 diabetes mellitus with hyperglycemia; E55.9 Vitamin D deficiency, unspecified; E66.9 Obesity, unspecified; N18.32 Chronic kidney disease, stage 3b; F31.9 Bipolar disorder, unspecified; H81.10 Benign paroxysmal vertigo, unspecified ear; Z68.34 Body mass index [BMI] 34.0-34.9, adult; E78.5 Hyperlipidemia, unspecified; E87.5 Hyperkalemia; F20.9 Schizophrenia, unspecified; G89.29 Other chronic pain; K21.9 Gastro-esophageal reflux disease without esophagitis; M54.50 Low back pain, unspecified; I12.9 Hypertensive chronic kidney disease with stage 1 through stage 4 chronic kidney disease, or unspecified chronic kidney disease; J45.909 Unspecified asthma, uncomplicated; R29.6 Repeated falls; Z79.82 Long term (current) use of aspirin; Z79.899 Other long term (current) drug therapy; Z86.73 Personal history of transient ischemic attack (TIA), and cerebral infarction without residual deficits; Z90.710 Acquired absence of both cervix and uterus; Z56.0 Unemployment, unspecified; Z91.148 Patient's other noncompliance with medication regimen for other reason; Z22.322 Carrier or suspected carrier of Methicillin resistant Staphylococcus aureus
CPT/HCPCS: 36415; 70450; 70551; 71045; 80053; 80061; 80164; 80307; 80320; 80329; 81001; 82140; 82248; 82306; 82542; 82607; 82746; 82962; 83540; 83550; 83690; 83735; 84132; 84146; 84439; 84443; 84481; 84484; 85025; 85045; 85610; 87081; 93005; 94640; 96361; 96372; 96374; 97110; 97116; 97163; 97530; C9113; G0378; J1815; J1885; J2405; Q0162

== ENCOUNTER 2024-01-12 23:22 | Inpatient (IN) | payer MEDICAID ==
[~2024-01-12] VITALS: Ht 154.9 cm; Wt 86.8 kg
[~2024-01-12 23:22] MED LIST changes: +ASPI-325 PO; +ATOR20TA50 PO; +BUPR-581 PO; -BUPR300T28 PO
[2024-01-12] MEDS: ALBUTEROL SULF 2.5 MG/0.5ML(0.5%) NEB SOLN NEB ONE (23:52)
[2024-01-13] VITALS (8 sets, daily range): BP systolic 146–200; BP diastolic 83–111; PULSE 89–107; RESP 18–20; TEMP 98.1–98.3; O2SAT 93–98
[2024-01-13 00:14] LABS: Basophils # (auto) 0.1 10 ^3/uL (0-0.2); Basophils % (auto) 0.8 % (0.0-2.0); Eosinophils # (auto) 0.4 10 ^3/uL (0-0.8); Eosinophils % (auto) 3.7 % (0.0-7.0); Hematocrit 33.1 % (36.0-46.0); Hemoglobin 11.2 g/dL (12.2-16.2); Lymphocytes # (auto) 2.1 10 ^3/uL (0.4-5.4); Mean Corpuscular Hemoglobin 27.6 pg (28.0-32.0); Mean Corpuscular Hgb Conc. 33.8 g/dL (32.0-36.0); Mean Corpuscular Volume 81.7 fL (80.0-100.0); Monocytes # (auto) 0.9 10 ^3/uL (0-1.3); Monocytes % (auto) 8.7 % (0.0-12.0); Neutrophils # (auto) 6.9 10 ^3/uL (1.6-8.6); Neutrophils % (auto) 66.8 % (37.0-80.0); Platelet Count (auto) 343 10^3/uL (140-450); Red Blood Cells 4.05 10^6/uL (4.0-5.20); Red Cell Distribution Width 14.7 % (11.8-14.3); White Blood Cell 10.4 10^3/uL (4.4-10.8)
[2024-01-13 00:19] LABS: Chloride 107 mmol/L (98-107); Potassium 3.8 mmol/L (3.5-5.1); Sodium 137 mmol/L (136-145)
[2024-01-13 00:20] LABS: Anion Gap 9 (5-15); Calcium 9.4 mg/dL (8.7-10.4); Carbon Dioxide 21 mmol/L (20-30)
[2024-01-13 00:25] LABS: BUN/Creatinine Ratio 29.3 (10.0-20.0); Blood Urea Nitrogen 41 mg/dL (9-23); Glucose 157 mg/dL (74-106)
[2024-01-13] MEDS ORDERED: LORazepam 2MG/ML-1ML VIAL IV ONE (04:40)
[2024-01-13] MEDS: ASPirin 81 mg TAB PO ONE (04:56)
[2024-01-13] MEDS: ALPRAZolam 0.5 MG TAB PO ONE (04:59)
[2024-01-13] MEDS: LORazepam 2MG/ML-1ML VIAL IM ONE (05:04)
[2024-01-13] MEDS ORDERED: NITROGLYCERIN 0.4 MG SL TAB SL PRN (09:45)
[2024-01-13] MEDS ORDERED: MORPHINE SULFATE INJ 2 MG/ml SYRG IV PRN (09:45)
[2024-01-13] MEDS: SODIUM CHLORIDE 0.9% 1,000 ML IV SCH (09:45)
[2024-01-13] MEDS ORDERED: ALBUTEROL SULF 2.5 MG/0.5ML(0.5%) NEB SOLN NEB PRN (09:45)
[2024-01-13] MEDS ORDERED: DEXTROSE (50%) 50ML SYRG IV PRN (09:45)
[2024-01-13] MEDS ORDERED: ACETAMINOPHEN 325 MG TAB PO PRN (09:45)
[2024-01-13] MEDS: BUPROPION HCL 300 MG PO SCH (10:00)
[2024-01-13 10:45] LABS: Triglycerides 250 mg/dL (< 150)
[2024-01-13 10:46] LABS: LDL Cholesterol 173 mg/dL (< 100)
[2024-01-13 10:47] LABS: HDL Cholesterol 56 mg/dL (40-59)
[2024-01-13 10:48] LABS: Cholesterol 273 mg/dL (< 200)
[2024-01-13] MEDS: ACCU-CHEK COMFORT CURVE STRIP VI SCH (11:00)
[2024-01-13] MEDS: ENOXAPARIN SOD 40 MG/0.4 ML SYRINGE SC SCH (11:37)
[2024-01-13] MEDS: InsuLIN REG 1unit/0.01ml Soln (100units/ml) SC SCH (11:37)
[2024-01-13] MEDS: lamoTRIgine 100 MG TAB PO SCH (11:38)
[2024-01-13] MEDS: PANTOPRAZOLE 40 MG TAB PO SCH (11:38)
[2024-01-13] MEDS: FLUoxetine HCL 20 MG CAP PO SCH (11:38)
[2024-01-13] MEDS: ASPirin-EC 81 mg tab PO SCH (12:08)
[2024-01-13] MEDS ORDERED: CYCL-839 PO (18:27)
[2024-01-13] MEDS ORDERED: GLIM-38 PO (18:27)
[2024-01-13] MEDS: CYCLOBENZAPRINE HCL 10 MG TAB PO PRN (20:59)
[2024-01-13] MEDS: QUEtiapine FUMARATE 100 MG TAB PO SCH (21:04)
[2024-01-13] MEDS: ATORVASTATIN 20 MG TAB PO SCH (21:04)
[2024-01-13] MEDS: ALPRAZolam 0.5 MG TAB PO PRN (21:09)
[2024-01-13] MEDS: hydrALAZINE HCL 20 MG/ML VL IV PRN (23:05)
[2024-01-14] VITALS (10 sets, daily range): BP systolic 100–148; BP diastolic 59–78; PULSE 80–97; RESP 16–18; TEMP 97.6–98.2; O2SAT 81–98
[2024-01-14] MEDS: HYDROcodone-ACET 5/325MG TAB PO PRN (05:23)
[2024-01-14 06:11] LABS: Basophils # (auto) 0.1 10 ^3/uL (0-0.2); Basophils % (auto) 0.6 % (0.0-2.0); Eosinophils # (auto) 0.4 10 ^3/uL (0-0.8); Eosinophils % (auto) 4.6 % (0.0-7.0); Hemoglobin 11.1 g/dL (12.2-16.2); Lymphocytes # (auto) 1.6 10 ^3/uL (0.4-5.4); Lymphocytes % (auto) 17.2 % (10.0-50.0); Mean Corpuscular Hemoglobin 28.4 pg (28.0-32.0); Mean Corpuscular Hgb Conc. 34.8 g/dL (32.0-36.0); Mean Corpuscular Volume 81.7 fL (80.0-100.0); Monocytes # (auto) 0.8 10 ^3/uL (0-1.3); Monocytes % (auto) 9.2 % (0.0-12.0); Neutrophils # (auto) 6.3 10 ^3/uL (1.6-8.6); Neutrophils % (auto) 68.4 % (37.0-80.0); Platelet Count (auto) 327 10^3/uL (140-450); Red Blood Cells 3.92 10^6/uL (4.0-5.20); Red Cell Distribution Width 14.8 % (11.8-14.3); White Blood Cell 9.3 10^3/uL (4.4-10.8)
[2024-01-14 06:21] LABS: Alkaline Phosphatase 162 U/L (46-116); Anion Gap 9 (5-15); Aspartate Aminotransferase < 8 U/L (13-40); BUN/Creatinine Ratio 22.9 (10.0-20.0); Bilirubin, Total 0.3 mg/dL (0.2-1.0); Blood Urea Nitrogen 35 mg/dL (9-23); Calcium 9.1 mg/dL (8.7-10.4); Carbon Dioxide 22 mmol/L (20-30); Chloride 107 mmol/L (98-107); Glucose 160 mg/dL (74-106); Potassium 4.8 mmol/L (3.5-5.1); Sodium 138 mmol/L (136-145); Total Protein 6.8 g/dL (5.7-8.2)
[2024-01-14 06:29] LABS: Alanine Aminotransferase < 9 U/L (7-40)
[2024-01-15] VITALS (12 sets, daily range): BP systolic 101–163; BP diastolic 62–76; PULSE 70–95; RESP 15–18; TEMP 97.8–99.1; O2SAT 94–97
[2024-01-15 07:10] LABS: Basophils # (auto) 0 10 ^3/uL (0-0.2); Basophils % (auto) 0.7 % (0.0-2.0); Calcium 8.8 mg/dL (8.7-10.4); Chloride 108 mmol/L (98-107); Eosinophils # (auto) 0.4 10 ^3/uL (0-0.8); Eosinophils % (auto) 5.2 % (0.0-7.0); Hematocrit 29.2 % (36.0-46.0); Hemoglobin 9.9 g/dL (12.2-16.2); Lymphocytes # (auto) 1.5 10 ^3/uL (0.4-5.4); Lymphocytes % (auto) 22.2 % (10.0-50.0); Mean Corpuscular Volume 82.5 fL (80.0-100.0); Monocytes # (auto) 0.7 10 ^3/uL (0-1.3); Neutrophils # (auto) 4.2 10 ^3/uL (1.6-8.6); Neutrophils % (auto) 61.9 % (37.0-80.0); Platelet Count (auto) 289 10^3/uL (140-450); Red Blood Cells 3.54 10^6/uL (4.0-5.20); Red Cell Distribution Width 14.7 % (11.8-14.3); Sodium 137 mmol/L (136-145); White Blood Cell 6.7 10^3/uL (4.4-10.8)
[2024-01-15 07:11] LABS: Anion Gap 8 (5-15); Carbon Dioxide 21 mmol/L (20-30)
[2024-01-15 07:16] LABS: BUN/Creatinine Ratio 23.5 (10.0-20.0); Blood Urea Nitrogen 46 mg/dL (9-23); Glucose 155 mg/dL (74-106)
[2024-01-15] MEDS: SODIUM CHLORIDE 0.9% 1,000 ML IV SCH (12:45)
[2024-01-15 13:28] LABS: % Iron Saturation 16.9 % (15-50)
[2024-01-15 15:55] LABS: Folate (Folic Acid) 8.98 ng/mL (>5.38)
[2024-01-15 18:36] LABS: Urine Bacteria None Seen /hpf (None Seen)
[2024-01-15 18:47] LABS: Urine Blood Negative /uL (Negative); Urine Clarity Clear (Clear); Urine Color Colorless (Yellow); Urine Protein, UAD TRACE (Negative); Urine Specific Gravity 1.012 (1.001-1.035); Urine Urobilinogen Normal (Negative); Urine WBC <1 /hpf (0 - 5); Urine pH 5.5 (5.0-9.0)
[2024-01-16] VITALS (18 sets, daily range): BP systolic 100–208; BP diastolic 62–84; PULSE 78–107; RESP 16–20; TEMP 97.5–98.2; O2SAT 93–100
[2024-01-16 07:08] LABS: Basophils # (auto) 0 10 ^3/uL (0-0.2); Basophils % (auto) 0.7 % (0.0-2.0); Eosinophils # (auto) 0.4 10 ^3/uL (0-0.8); Eosinophils % (auto) 6.7 % (0.0-7.0); Hematocrit 29.7 % (36.0-46.0); Hemoglobin 9.8 g/dL (12.2-16.2); Lymphocytes # (auto) 1.6 10 ^3/uL (0.4-5.4); Lymphocytes % (auto) 23.9 % (10.0-50.0); Mean Corpuscular Hgb Conc. 33.1 g/dL (32.0-36.0); Mean Corpuscular Volume 84.7 fL (80.0-100.0); Monocytes # (auto) 0.7 10 ^3/uL (0-1.3); Monocytes % (auto) 10.8 % (0.0-12.0); Neutrophils # (auto) 3.8 10 ^3/uL (1.6-8.6); Neutrophils % (auto) 57.9 % (37.0-80.0); Nucleated Red Blood Cells % 0.1 %; Platelet Count (auto) 293 10^3/uL (140-450); Red Cell Distribution Width 14.8 % (11.8-14.3); White Blood Cell 6.6 10^3/uL (4.4-10.8)
[2024-01-16 07:28] LABS: Anion Gap 8 (5-15); Carbon Dioxide 20 mmol/L (20-30); Chloride 109 mmol/L (98-107); Potassium 4.8 mmol/L (3.5-5.1); Sodium 137 mmol/L (136-145)
[2024-01-16 07:29] LABS: Calcium 8.4 mg/dL (8.7-10.4)
[2024-01-16 07:34] LABS: Glucose 121 mg/dL (74-106)
[2024-01-16 07:40] LABS: Blood Urea Nitrogen 28 mg/dL (9-23)
[2024-01-16 08:06] LABS: BUN/Creatinine Ratio 16.2 (10.0-20.0)
[2024-01-16] MEDS ORDERED: ALBUTEROL SULF 2.5 MG/0.5ML(0.5%) NEB SOLN NEB PRN (14:00)
[2024-01-16] MEDS: ALBUTEROL SULF 2.5 MG/0.5ML(0.5%) NEB SOLN ONE (14:14)
[2024-01-16] MEDS: NIFEdipine ER 30 MG TAB PO ONE (16:15)
[2024-01-16] MEDS: LEVALBUTEROL HCL 1.25 MG/3 ML NEB NEB SCH (18:42)
[2024-01-16] MEDS: IBUPROFEN 600 MG TAB PO SCH (22:02)
[2024-01-16] MEDS: METOPROLOL TARTRATE 25 MG TAB PO SCH (22:04)
[2024-01-17] VITALS (15 sets, daily range): BP systolic 107–126; BP diastolic 61–73; PULSE 71–91; RESP 18–20; TEMP 97.6–98.4; O2SAT 93–100
[2024-01-17 07:53] LABS: Basophils # (auto) 0.1 10 ^3/uL (0-0.2); Basophils % (auto) 0.8 % (0.0-2.0); Eosinophils # (auto) 0.3 10 ^3/uL (0-0.8); Eosinophils % (auto) 4.6 % (0.0-7.0); Hematocrit 31.2 % (36.0-46.0); Hemoglobin 10.5 g/dL (12.2-16.2); Lymphocytes # (auto) 1.3 10 ^3/uL (0.4-5.4); Mean Corpuscular Hemoglobin 27.8 pg (28.0-32.0); Mean Corpuscular Hgb Conc. 33.8 g/dL (32.0-36.0); Mean Corpuscular Volume 82.3 fL (80.0-100.0); Monocytes # (auto) 0.7 10 ^3/uL (0-1.3); Monocytes % (auto) 9.8 % (0.0-12.0); Neutrophils # (auto) 4.7 10 ^3/uL (1.6-8.6); Neutrophils % (auto) 66.8 % (37.0-80.0); Platelet Count (auto) 302 10^3/uL (140-450); Red Blood Cells 3.79 10^6/uL (4.0-5.20); Red Cell Distribution Width 14.6 % (11.8-14.3); White Blood Cell 7.1 10^3/uL (4.4-10.8)
[2024-01-17 08:17] LABS: Anion Gap 9 (5-15); Carbon Dioxide 23 mmol/L (20-30); Chloride 107 mmol/L (98-107); Potassium 4.8 mmol/L (3.5-5.1); Sodium 139 mmol/L (136-145)
[2024-01-17 08:18] LABS: Calcium 9.2 mg/dL (8.7-10.4)
[2024-01-17 08:23] LABS: BUN/Creatinine Ratio 18.1 (10.0-20.0); Blood Urea Nitrogen 29 mg/dL (9-23); Glucose 153 mg/dL (74-106)
[2024-01-17] MEDS: NIFEdipine ER 30 MG TAB PO SCH (09:48)
[2024-01-17] MEDS: ENOXAPARIN SOD 30 MG/0.3 ML SYRINGE SC SCH (09:53)
[2024-01-17] MEDS ORDERED: NIFE1TAB31 PO (11:40)
[2024-01-17] MEDS ORDERED: LEVA1.2518 NEB (11:40)
[2024-01-17] MEDS ORDERED: MET25T PO (11:40)
[2024-01-18] VITALS (18 sets, daily range): BP systolic 116–165; BP diastolic 77–87; PULSE 76–83; RESP 16–20; TEMP 97.7–98.9; O2SAT 92–100
[2024-01-18] MEDS: ENOXAPARIN SOD 40 MG/0.4 ML SYRINGE SC SCH (09:29)
[2024-01-18 11:46] LABS: Chloride 107 mmol/L (98-107); Potassium 5.1 mmol/L (3.5-5.1); Sodium 137 mmol/L (136-145)
[2024-01-18 11:47] LABS: Anion Gap 6 (5-15); Carbon Dioxide 24 mmol/L (20-31)
[2024-01-18 11:52] LABS: BUN/Creatinine Ratio 19.5 (10.0-20.0); Blood Urea Nitrogen 31 mg/dL (9-23); Glucose 121 mg/dL (74-106)
[2024-01-19] VITALS (10 sets, daily range): BP systolic 90–151; BP diastolic 53–86; PULSE 70–79; RESP 16–22; TEMP 98.1–99.1; O2SAT 94–100
[2024-01-19 07:47] LABS: Basophils # (auto) 0.1 10 ^3/uL (0-0.2); Basophils % (auto) 0.8 % (0.0-2.0); Eosinophils # (auto) 0.4 10 ^3/uL (0-0.8); Eosinophils % (auto) 5.5 % (0.0-7.0); Hematocrit 28.6 % (36.0-46.0); Hemoglobin 9.5 g/dL (12.2-16.2); Lymphocytes # (auto) 1.5 10 ^3/uL (0.4-5.4); Mean Corpuscular Hemoglobin 27.5 pg (28.0-32.0); Mean Corpuscular Hgb Conc. 33.1 g/dL (32.0-36.0); Monocytes % (auto) 12.6 % (0.0-12.0); Neutrophils # (auto) 5.2 10 ^3/uL (1.6-8.6); Neutrophils % (auto) 63.1 % (37.0-80.0); Platelet Count (auto) 270 10^3/uL (140-450); Red Blood Cells 3.44 10^6/uL (4.0-5.20); White Blood Cell 8.2 10^3/uL (4.4-10.8)
[2024-01-19 08:09] LABS: Anion Gap 6 (5-15); Carbon Dioxide 24 mmol/L (20-31); Chloride 108 mmol/L (98-107); Potassium 4.6 mmol/L (3.5-5.1); Sodium 138 mmol/L (136-145)
[2024-01-19 08:10] LABS: Calcium 8.9 mg/dL (8.7-10.4)
[2024-01-19 08:15] LABS: BUN/Creatinine Ratio 17.8 (10.0-20.0); Blood Urea Nitrogen 29 mg/dL (9-23); Glucose 123 mg/dL (74-106)
== END 2024-01-19 16:20 | DRG 141 ==
LOC: EDBD 23:22 → ER 23:22 → TELE 01-13 09:34 → TELE-WESTW 01-13 17:47 → WEST WING 01-17 07:05
PROVIDERS: ADMIT Internal Medicine; ATTEND Emergency Medicine
DX: J45.901 Unspecified asthma with (acute) exacerbation (principal); J96.01 Acute respiratory failure with hypoxia; N17.0 Acute kidney failure with tubular necrosis; E11.22 Type 2 diabetes mellitus with diabetic chronic kidney disease; E11.65 Type 2 diabetes mellitus with hyperglycemia; D64.9 Anemia, unspecified; E66.01 Morbid (severe) obesity due to excess calories; K21.9 Gastro-esophageal reflux disease without esophagitis; I12.9 Hypertensive chronic kidney disease with stage 1 through stage 4 chronic kidney disease, or unspecified chronic kidney disease; N18.30 Chronic kidney disease, stage 3 unspecified; E78.5 Hyperlipidemia, unspecified; F41.9 Anxiety disorder, unspecified; G89.29 Other chronic pain; R56.9 Unspecified convulsions; F31.9 Bipolar disorder, unspecified; I16.0 Hypertensive urgency; Z79.82 Long term (current) use of aspirin; Z79.899 Other long term (current) drug therapy; Z68.30 Body mass index [BMI] 30.0-30.9, adult; Z83.3 Family history of diabetes mellitus
CPT/HCPCS: 36415; 71045; 73502; 80048; 80053; 80061; 81001; 82270; 82607; 82728; 82746; 82962; 83036; 83540; 83550; 83735; 83880; 83930; 84443; 84484; 85025; 93005; 93306; 94640; 97110; 97116; 97163; 97530; 99291; G0378; J1815

== ENCOUNTER 2024-01-21 17:37 | Emergency (ER) | payer MEDICAID ==
[~2024-01-21] VITALS: Ht 154.9 cm; Wt 82.7 kg
[~2024-01-21 17:37] MED LIST changes: +CYCL-839 PO; +GLIM-38 PO; +LEVA1.2518 NEB; +MET25T PO; -METF-370 PO; +NIFE1TAB31 PO
[2024-01-21] MEDS: HYDROcodone-ACET 10/325MG TAB PO ONE (18:52)
[2024-01-21] MEDS ORDERED: HYDR-4902 PO (19:37)
[2024-01-21 21:00] VITALS: BP 127/79; PULSE 95; RESP 16; TEMP 97.9; O2SAT 98
== END 2024-01-21 21:10 | disposition home or self-care (01) ==
LOC: ER 17:37
DX: S42.021A Displaced fracture of shaft of right clavicle, initial encounter for closed fracture (principal); J45.909 Unspecified asthma, uncomplicated; I10 Essential (primary) hypertension; E11.9 Type 2 diabetes mellitus without complications; Z79.82 Long term (current) use of aspirin; Z79.899 Other long term (current) drug therapy; Z86.73 Personal history of transient ischemic attack (TIA), and cerebral infarction without residual deficits; Z90.49 Acquired absence of other specified parts of digestive tract; Z90.89 Acquired absence of other organs
CPT/HCPCS: 29105; 73030

== ENCOUNTER 2024-06-29 15:41 | Inpatient (IN) | payer MEDICAID ==
[~2024-06-29] VITALS: Ht 154.9 cm; Wt 86.5 kg
[~2024-06-29 15:41] MED LIST changes: +HYDR-4902 PO
--- NOTE | 2024-06-29 15:47 | ED.PDOC ---
GI ASSESSMENT HPI Comments HPI: 59-year-old female brought in by EMS presents with a chief complaint of abdominal pain x onset last night. Patient reports that her pain is localized to her lower abdominal quadrants, radiating to her low back, describes as a constant, sharp 10/10 pain. Patient states that she was at rest when onset of symptoms began. Patient denies any nausea, vomiting, diarrhea, or rectal bleeding. Patient was given 200mcg Fentanyl Intranasally by EMS en route to ER. Patient states that the pain is worse than it was last night. Past Medical History: TIA, DM, HTN, ANEMIA, ASTHMA, DEPRESSION, HLD Past Surgical History: , APPENDECTOMY, TONSILLECTOMY Social History: DENIES Allergies: NKDA HPI: Poor Historian. Past Medical History: Past Surgical History: REVIEW OF SYSTEMS: CONSTITUTIONAL: Denies acute: fever, diaphoresis, chills, generalized weakness. HEAD: Denies acute: headache, photophobia Eyes: Denies acute: Double vision, vision loss, eye pain, eye discharge. EARS: Denies acute: tinnitus, hearing loss, ear discharge, ear pain, THROAT: Denies acute: sore throat, swelling, difficulty swallowing , pain with swallowing, change in voice. NECK: Denies acute: neck pain, neck swelling, stiff neck. HEART: Denies acute : chest pain, palpitations, LUNGS: Denies acute: SOB, wheezing, cough, hemoptysis ABDOMEN: Denies acute: Nausea, Vomiting, diarrhea, melena , hematemesis, hematochezia SKIN: Denies acute: rash, redness, lesions, itchiness. EXTREMITIES: Denies acute: calf pain, numbness, tingling, weakness, denies pain in extremity. Denies acute: Low back pain. Neuro: Denies acute: focal neurological deficit, motor or sensory focal neurological deficit, tremors, seizure like activity, confusion, dizziness, change in mental status, loss of bowel or bladder function, cauda equina like symptoms. : Denies acute: dysuria, hematuria, flank pain, increase in urinary frequency. PSYCH: Denies acute: hallucination, suicidal ideation, homicidal ideation. FEMALE: Denies acute: abnormal vaginal bleeding, foul odor, unusual discharge. PHYSICAL EXAM: General: [id number] acute distress, awake and alert. Head: normocephalic, atraumatic. Neck: supple, trachea is midline, no swelling. Throat: Normal phonation. Eyes:, no erythema, no purulent discharge, no proptosis, no icterus. Heart: regular tachycardia, no significant murmur appreciated. Lungs: no apparent respiratory distress, Able to speak in full sentences. No wheezing, no rhonchi, no crackles. No stridors Clear to auscultation bilaterally. Abdomen: Lower abdominal bilateral tender to palpation, non distended, soft, no guarding, no rebound, + bowel sounds. Obese Neuro: Awake, Alert, oriented to name, self, situation, follows commands GCS=15. Speech is normal. Skin: no petechia, no purpura, no cyanosis, non-pale, not jaundice. Lower extremities: --trace bilateral - Pitting edema no deformity, no focal swelling, no calf TTP. Makes eye contact. moves all four extremities. Face: no apparent facial droop. Ambulating in the ED independently. ED COURSE: Time Seen by MD: 15:39 Primary Care Provider: > Reviewed Notes: Nurses Notes, Medications, Allergies Allergies: Coded Allergies: NO KNOWN ALLERGIES (Unverified , 12/31/15) Home Meds Active Scripts Hydrocodone-Acetaminophen (Hydrocodone Bitartrate/AC 5-325 mg) 1 Tab Tab, 1 TAB PO Q8HP PRN for 7 Days, #21 TAB Prov:PAYAM PEREZ MD 01/21/24 Nifedipine (Nifedipine Er) 30 Mg Tab, 60 MG PO DAILY for 30 Days, #60 TAB 3 Refills Prov:DUSTIN OLIVERA DO 01/17/24 Metoprolol Tartrate (Lopressor) 25 Mg Tb, 12.5 MG PO BID for 30 Days, #30 TAB 3 Refills Prov:DUSTIN OLIVERA DO 01/17/24 Levalbuterol HCl (Levalbuterol HCl) 1.25 Mg/3 Ml Neb, 0.625 MG NEB Q6HR for 30 Days, #30 INH 3 Refills Prov:DUSTIN OLIVERA DO 01/17/24 Atorvastatin Calcium (ATORVASTATIN CALCIUM) 20 Mg Tab, 80 MG PO HS for 30 Days, #30 TAB 3 Refills Prov:CORRY CAPMOS MD 04/05/23 Aspirin (Aspirin Low Dose) 81 Mg Tab, 81 MG PO DAILY for 30 Days, #30 TAB 3 Refills Prov:CORRY CAMPOS MD 04/05/23 Pantoprazole Sodium Sesquihydr (Pantoprazole Sodium) 40 Mg Tab, 40 MG PO DAILY for 30 Days, #30 TAB 2 Refills Prov:CORRY CAMPOS MD 03/30/23 Reported Medications Cyclobenzaprine Hcl (Cyclobenzaprine Hcl) 10 Mg Tab, 10 MG PO [id number], TAB 01/13/24 Glimepiride (Glimepiride) 1 Mg Tab, 1 TAB PO DAILY 01/13/24 Fluoxetine Hcl (Fluoxetine Hcl) 40 Mg Cap, 1 CAP PO DAILY 03/26/23 Alprazolam (Alprazolam) 0.5 Mg Tab, PO 03/26/23 Lamotrigine (Lamotrigine) 200 Mg Tab, 1 TAB PO BID 03/26/23 Bupropion Hcl (Bupropion Hcl Xl) 300 Mg Tab, 1 TAB PO DAILY 03/26/23 Divalproex Sodium (Divalproex Sodium) 500 Mg Tab, 1 TAB PO DAILY 03/26/23 Quetiapine Fumerate (QUETIAPINE FUMARATE) 400 Mg Tab, 1 TAB PO BID 03/26/23 Information Source: Patient, Emergency Med Personnel Mode of Arrival: EMS Past Medical History PAST MEDICAL HISTORY: Anemia, Asthma, Depression, High Lipids, HTN, TIA Surgical History: Appendectomy, , Tonsillectomy 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 Was a procedure done?: No GI differential Dx Differential Diagnosis: Other (DDX include Diverticulitis, colitis, gastroenteritis, acute abdomen, SBO, enteritis, constipation, volvulus, appendic itis, Gallbladder disease, choledocolithiasis, ascending cholangitis, pancreatitis, intraAbdominal mass/neoplasm, hepatitis, UTI, pylonephritis, kidney stone, aneurysm, dissection, Inflammatory bowel disease, gastroparesis, ischemic bowel, ovarian torsion, ovarian cyst/mass, tubo-ovarian abscess, PID, STD.) X-Ray, Labs, Meds, VS Vital Signs Date Time Temp Pulse Resp B/P (MAP) Pulse Ox O2 Delivery O2 Flow Rate FiO2 06/29/24 17:14 101 18 175/94 (121) 92 06/29/24 17:12 101 175/94 06/29/24 16:22 111 20 94 Room Air* 0 21 06/29/24 16:20 98.2 111 20 199/110 (139) 94 98.2 06/29/24 16:12 111 199/110 06/29/24 15:47 109 06/29/24 15:46 99.2 109 20 181/ 96 Lab Test 06/29/24 17:34 06/29/24 17:00 06/29/24 16:14 Range/Units Troponin I High Sensitivity 54 *H 51 *H </=34 ng/L Urine Color Colorless Yellow Urine Clarity Clear Clear Urine pH 6.0 5.0-9.0 Urine Specific [place] 1.010 1.001-1.035 Urine Protein 2+ H Negative Urine Ketones Negative Negative Urine Blood 1+ H Negative /uL Urine Nitrite Negative Negative Urine Bilirubin Negative Negative Urine Urobilinogen Normal Negative mg/dL Urine Leukocyte Esterase Negative Negative /uL Urine RBC 3 0 - 4 /hpf Urine Microscopic WBC 1 0-5 /HPF Urine Squamous Epithelial Cells Few <5 /hpf Urine Bacteria Few H None Seen /hpf Urine Glucose 4+ H Normal mg/dL White Blood Count 15.9 H 4.4-10.8 10^3/uL Red Blood Count 4.25 4.0-5.20 10^6/uL Hemoglobin 11.3 L 12.2-16.2 g/dL Hematocrit 34.6 L 36.0-46.0 % Mean Corpuscular Volume 81.4 80.0-100.0 fL Mean Corpuscular Hemoglobin 26.6 L 28.0-32.0 pg Mean Corpuscular Hemoglobin Concent 32.6 32.0-36.0 g/dL Red Cell Distribution Width 14.5 H 11.8-14.3 % Platelet Count 298 140-450 10^3/uL Mean Platelet Volume 8.3 6.9-10.8 fL Neutrophils (%) (Auto) 85.6 H 37.0-80.0 % Lymphocytes (%) (Auto) 4.7 L 10.0-50.0 % Monocytes (%) (Auto) 7.9 0.0-12.0 % Eosinophils (%) (Auto) 1.3 0.0-7.0 % Basophils (%) (Auto) 0.5 0.0-2.0 % Neutrophils # (Auto) 13.6 H 1.6-8.6 10 ^3/uL Lymphocytes # (Auto) 0.8 0.4-5.4 10 ^3/uL Monocytes # (Auto) 1.2 0-1.3 10 ^3/uL Eosinophils # (Auto) 0.2 0-0.8 10 ^3/uL Basophils # (Auto) 0.1 0-0.2 10 ^3/uL Nucleated Red Blood Cells 0.0 % Sodium Level 131 L 136-145 mmol/L Potassium Level 4.2 3.5-5.1 mmol/L Chloride Level 100 98-107 mmol/L Carbon Dioxide Level 21 20-31 mmol/L Anion Gap 10 5-15 Blood Urea Nitrogen 45 H 9-23 mg/dL Creatinine 1.65 H 0.550-1.02 mg/dL Glomerular Filtration Rate Calc 35 >90 mL/min BUN/Creatinine Ratio 27.3 H 10.0-20.0 Serum Glucose 369 H 74-106 mg/dL Lactic Acid Level 1.9 0.4-2.0 mmol/L Calcium Level 9.9 8.7-10.4 mg/dL Total Bilirubin 0.3 0.2-1.0 mg/dL Aspartate Amino Transferase (AST) 8 L 13-40 U/L Alanine Aminotransferase (ALT) 12 7-40 U/L Alkaline Phosphatase 262 H 46-116 U/L Total Protein 7.5 5.7-8.2 g/dL Albumin 4.5 3.2-4.8 g/dL Lipase 68 H 12-53 U/L Current Medications Medications (Trade) Dose Ordered Sig/Ronn Route Start Time Stop Time Status Last Admin Labetalol HCl (Labetalol HCl) 5 mg ONCE ONCE IV 06/29/24 16:15 06/29/24 16:16 DC 06/29/24 16:12 Piperacillin Sod/ Tazobactam Sod 100 ml @ 100 mls/hr ONCE ONCE IV 06/29/24 17:15 06/29/24 18:14 DC 06/29/24 17:31 Tamsulosin HCl (Flomax) 0.4 mg ONCE ONCE PO 06/29/24 17:30 06/29/24 17:31 DC 06/29/24 17:45 Aspirin (Ecotrin Enteric Coated Tablet) 325 mg ONCE ONCE PO 06/29/24 17:30 06/29/24 17:31 DC 06/29/24 17:45 Time of 1ST Reevaluation: 16:09 Reevaluation 1ST: Unchanged Time of 2ND Reevaluation: 18:32 Reevaluation 2ND: Improved Patient Education/Counseling: Diagnosis, Treatment Family Education/Counseling: Other Comments Patient presented with the above HPI.-abdominal pain-----workup was initiated. patient was found with the above mentioned diagnosis. the following medications were ordered: please refer to order lists of meds and tests obtained by myself Dr. Celeste. Patient ED course and VS have been stabilized. Patient has been reassessed in the ED and remained in a stable condition. Pertinent incidental findings were discussed with the patient and/or family. Patient/family voices understanding and is agreeable with plan. Patient has been observed in the ED adequate length of time to insure improvement/stability. Escalation of care considered: Consideration of escalation to observation or admission Patient was ADMITTED to the medicine team for further evaluation and treatment of their presentation. All the reports of any imaging studies that were ordered by myself were reviewed by myself. Departure 1 Departure Time of Disposition: 17:19 Impression: Primary Impression: Leukocytosis Additional Impressions: Abdominal pain Ureteral stone Hypertensive urgency Elevated troponin Constipation Hyperglycemia due to diabetes mellitus Uncontrolled diabetes mellitus UTI (urinary tract infection) Disposition: ADMITTED INPATIENT Admit to: Tele Condition: Guarded Discharged With: Self Critical Care Note Critical Care Time?: Yes (1 hr-critical care time only) I personally scribed for ANAYA CELESTE DO ([email or web address]) on 06/29/24 at 15:47. Electronically submitted by Willian Mg ([email or web address]). ANAYA CELESTE DO Jun 29, 2024 15:47
[2024-06-29] MEDS: LABETALOL HCL 20 MG/4 ML VL IV ONE (16:12)
[2024-06-29] MEDS: SODIUM CHLORIDE 0.9% 1,000 ML IV ONE (16:17)
[2024-06-29 16:22] VITALS: PULSE 111; RESP 20; O2SAT 94
[2024-06-29 16:46] LABS: Basophils # (auto) 0.1 10 ^3/uL (0-0.2); Eosinophils # (auto) 0.2 10 ^3/uL (0-0.8); Eosinophils % (auto) 1.3 % (0.0-7.0); Monocytes # (auto) 1.2 10 ^3/uL (0-1.3); Monocytes % (auto) 7.9 % (0.0-12.0)
[2024-06-29 16:47] LABS: Basophils % (auto) 0.5 % (0.0-2.0); Hematocrit 34.6 % (36.0-46.0); Hemoglobin 11.3 g/dL (12.2-16.2); Lymphocytes # (auto) 0.8 10 ^3/uL (0.4-5.4); Lymphocytes % (auto) 4.7 % (10.0-50.0); Mean Corpuscular Hemoglobin 26.6 pg (28.0-32.0); Mean Corpuscular Hgb Conc. 32.6 g/dL (32.0-36.0); Mean Corpuscular Volume 81.4 fL (80.0-100.0); Neutrophils # (auto) 13.6 10 ^3/uL (1.6-8.6); Neutrophils % (auto) 85.6 % (37.0-80.0); Platelet Count (auto) 298 10^3/uL (140-450); Red Blood Cells 4.25 10^6/uL (4.0-5.20); Red Cell Distribution Width 14.5 % (11.8-14.3); White Blood Cell 15.9 10^3/uL (4.4-10.8)
[2024-06-29 16:53] LABS: Alanine Aminotransferase 12 U/L (7-40); Albumin 4.5 g/dL (3.2-4.8); Anion Gap 10 (5-15); BUN/Creatinine Ratio 27.3 (10.0-20.0); Calcium 9.9 mg/dL (8.7-10.4); Carbon Dioxide 21 mmol/L (20-31); Chloride 100 mmol/L (98-107); Potassium 4.2 mmol/L (3.5-5.1); Total Protein 7.5 g/dL (5.7-8.2)
[2024-06-29 17:00] LABS: Alkaline Phosphatase 262 U/L (46-116); Aspartate Aminotransferase 8 U/L (13-40); Bilirubin, Total 0.3 mg/dL (0.2-1.0); Blood Urea Nitrogen 45 mg/dL (9-23); Glucose 369 mg/dL (74-106); Lipase 68 U/L (12-53); Sodium 131 mmol/L (136-145)
--- NOTE | 2024-06-29 17:12 | DVH ---
Exam: CT CT AB PEL WO CON-NO ORAL OR IV History: lower abd pain Comparison Study: None available at time of dictation. TECHNIQUE: Multidetector CT of the abdomen was performed from lung bases to pubic symphysis. Imaging was performed without IV contrast. Axial, coronal and sagittal multiplanar reformats were obtained fr om the axial data set by the technologist. Radiation Dose Information: CT Dose: CTDI volume is 23.43 mGy. Dose-length product is 1101.55 mGy*cm FINDINGS: Evaluation of solid organs is limited due to lack of intravenous contrast use. Findings: Lung Bases: Bibasilar areas of atelectasis or infiltrate in the posterior costophrenic angles.. Norm al heart size. No pleural or pericardial effusion. Liver: The liver is normal in size. No focal lesions. Liver measures 23 cm long Gallbladder and Biliary Tree: Unremarkable Spleen: Unremarkable Pancreas: The pancreas is grossly normal in appearance. Adrenal Glands: Unremarkable Kidneys: Kidneys are grossly normal without calculi or hydronephrosis. Possible distal left ureteral calculus measuring 2 mm no left hydronephrosis Bladder: Grossly unremarkable for degree of distention. Bowel: The stomach is grossly normal in appearance. Small bowel and colon are normal in caliber and d istribution. The appendix is not visualized; however, no secondary findings of acute appendicitis id entified. Ascites: Absent Lymphadenopathy: No mesenteric, retroperitoneal or periportal lymphadenopathy. Abdominal Wall and Mesentery: Unremarkable. Vasculature: The visualized abdominal aorta is normal in size and caliber. Evaluation of abdominal a nd pelvic vessels is limited due to lack of intravenous contrast. Pelvic Organs: Unremarkable Musculoskeletal: No aggressive focal bony lesions, acute fractures or dislocation. Soft tissues: Unremarkable IMPRESSION: 1. No bowel obstruction 2. Moderately large stool burden throughout the colon. 3. No calcified gallstones 4. Possible 2 mm nonobstructing distal left ureteral calculus (series 2 image 60) Radiation optimization: All CT scans at this facility use at least one of these dose optimization celine hniques: automated exposure control mA and/or kV adjustment per patient size (includes targeted exam s where dose is matched to clinical indication) or iterative reconstruction.
[2024-06-29] MEDS: PIPERACILLIN-TAZOB 3.375GM 100 ML IV ONE (17:31)
[2024-06-29 17:42] LABS: Urine Bacteria FEW /hpf (None Seen); Urine Blood 1+ /uL (Negative); Urine Clarity Clear (Clear); Urine Color Colorless (Yellow); Urine Protein, UAD 2+ (Negative); Urine Squamous Epithelial Cell FEW /hpf (<5); Urine Urobilinogen Normal (Negative); Urine WBC 1 /HPF (0-5)
[2024-06-29] MEDS: ASPirin-EC 325mg tab PO ONE (17:45)
[2024-06-29] MEDS: TAMSULOSIN HYDROCHLORIDE 0.4 MG CAP PO ONE (17:45)
--- NOTE | 2024-06-29 18:25 | ECG ---
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
--- NOTE | 2024-06-29 18:43 | DVH ---
CHEST RADIOGRAPH Indication: elevated trop Technique: Single frontal view of the chest was obtained Comparison: XY CHEST PORTABLE on DOS: 01/12/24, XY CHEST XRAY 1 VIEW on DOS: 04/01/23, XY CHEST PORTABL E on DOS: 03/25/23 FINDINGS: Lines and Tubes: None Lungs: No focal consolidation. Mild interstitial prominence. Pleura: No effusion. No pneumothorax. Cardiomediastinal contours: Unremarkable Bones: No acute osseous abnormality. IMPRESSION: Mild pulmonary vascular congestion.
[2024-06-29] MEDS: HYDROcodone-ACET 5/325MG TAB PO ONE (19:45)
[2024-06-29] MEDS ORDERED: DOCUSATE SOD 100 MG CAP PO PRN (21:45)
[2024-06-29] MEDS ORDERED: DEXTROSE (50%) 50ML SYRG IV PRN (21:45)
[2024-06-29] MEDS ORDERED: NITROGLYCERIN 0.4 MG SL TAB SL PRN (21:45)
--- NOTE | 2024-06-29 21:56 | DVHHP2 ---
History of Present Illness Reason for Visit: Hypertensive urgency History of Present Illness The patient is a 59-year-old female with multiple past medical history including DM, asthma, depression, and hypertension who presented to [facility] ED with complaint of abdominal pain. Patient reports she has been experiencing lower quadrant abdominal pain radiating to her back, described as constant, sharp, rating 10/10 numeric scale, getting worse that prompted this visit. Patient was seen and evaluated in the ED, laboratory data shows WBC 15.9, hemoglobin 11.3, hematocrit 34.8, platelets 298, sodium 131, potassium 4.2 BUN 49, creatinine 1.65, GFR 35, glucose 389, lipase 68, troponin 55, blood pressure 199/110 trending down to 154/90, heart rate 99, temperature 98.9 F, O2 saturation 98% on room air. Abdomen/pelvis CT showed no bowel obstruction. Chest x-ray revealing mild pulmonary vascular congestion. Please see medication orders section in the computer. On my assessment, patient denies chest pain, no headache, no dizziness, no shortness of breath, no nausea, no vomiting, no fever, no chills. Patient was admitted for further evaluation and medical management. Past Medical History DM, Anemia, Asthma, Depression, High Lipids, HTN, TIA Past Surgical History Appendectomy, , Tonsillectomy Family History Reviewed, noncontributory to the management of this case. Past Social History The patient lives at home, denies smoking, alcohol or illicit drugs abuse. Review of Systems Constitutional: Yes: Weakness; No: Fever, Chills, Sweats, Malaise, Other Eyes: No: Pain, Vision change, Conjunctivae inflammation, Eyelid inflammation, Other, Redness ENT: No: Ear pain, Ear discharge, Nose pain, Nose discharge, Nose congestion, Mouth pain, Mouth swelling, Throat pain, Throat swelling, Other Respiratory: Shortness of breath; No: Cough, Dry, SOB with excertion, Wheezing, Hemoptysis, Pleuritic Pain, Sputum, Wheezing, Other Cardiovascular: No: Chest Pain, Palpitations, Orthopnea, Paroxysmal Noc. Dyspnea, Edema, Lt Headedness, Other Gastrointestinal: No: Nausea, Vomiting, Abdominal Pain, Diarrhea, Constipation, Melena, Hematochezia, Other Genitourinary: No Dysuria, No Frequency, No Incontinence, No Hematuria, No Retention, No Other Musculoskeletal: No: other, neck pain, shoulder pain, arm pain, back pain, hand pain, leg pain, foot pain Skin: No: Rash, Lesions, Jaundice, Bruising, Other Neurological: No: Weakness, Numbness, Incoordination, Change in speech, Confusion, Seizures, Other Allergies: Coded Allergies: NO KNOWN ALLERGIES (Unverified , 12/31/15) Exam Vital Signs Vital Signs Date Time Temp Pulse Resp B/P (MAP) Pulse Ox O2 Delivery O2 Flow Rate FiO2 06/29/24 18:56 98.8 99 20 154/90 (111) 98 98.8 06/29/24 17:14 Room Air 06/29/24 16:22 0 21 General Appearance: Alert, Oriented X3, Cooperative, No acute distress HEENT: Atraumatic, PERRLA, EOMI, Mucous membr. moist/pink Respiratory: Clear to auscultation, Normal air movement Cardiovascular: Regular rate, Normal S1, Normal S2, No murmurs Abdominal: Normal bowel sounds, Soft, No hepatospenomegaly, No masses, Other (Reports tenderness) Extremities: No clubbing, No cyanosis, No edema, Normal pulses, No tenderness/swelling Skin: No rashes, No breakdown, No significant lesion Neuro: Normal speech, Normal tone, Sensation intact, Cranial nerves 3-12 NL, Reflexes 2+, Other (Generalized weakness) Psych/Mental Status: Mental status NL, Mood NL Labs/Xrays Labs Test 06/29/24 19:14 06/29/24 17:00 06/29/24 16:14 Range/Units Troponin I High Sensitivity 55 *H </=34 ng/L Urine Color Colorless Yellow Urine Clarity Clear Clear Urine pH 6.0 5.0-9.0 Urine Specific [place] 1.010 1.001-1.035 Urine Protein 2+ H Negative Urine Ketones Negative Negative Urine Blood 1+ H Negative /uL Urine Nitrite Negative Negative Urine Bilirubin Negative Negative Urine Urobilinogen Normal Negative mg/dL Urine Leukocyte Esterase Negative Negative /uL Urine RBC 3 0 - 4 /hpf Urine Microscopic WBC 1 0-5 /HPF Urine Squamous Epithelial Cells Few <5 /hpf Urine Bacteria Few H None Seen /hpf Urine Glucose 4+ H Normal mg/dL White Blood Count 15.9 H 4.4-10.8 10^3/uL Red Blood Count 4.25 4.0-5.20 10^6/uL Hemoglobin 11.3 L 12.2-16.2 g/dL Hematocrit 34.6 L 36.0-46.0 % Mean Corpuscular Volume 81.4 80.0-100.0 fL Mean Corpuscular Hemoglobin 26.6 L 28.0-32.0 pg Mean Corpuscular Hemoglobin Concent 32.6 32.0-36.0 g/dL Red Cell Distribution Width 14.5 H 11.8-14.3 % Platelet Count 298 140-450 10^3/uL Mean Platelet Volume 8.3 6.9-10.8 fL Neutrophils (%) (Auto) 85.6 H 37.0-80.0 % Lymphocytes (%) (Auto) 4.7 L 10.0-50.0 % Monocytes (%) (Auto) 7.9 0.0-12.0 % Eosinophils (%) (Auto) 1.3 0.0-7.0 % Basophils (%) (Auto) 0.5 0.0-2.0 % Neutrophils # (Auto) 13.6 H 1.6-8.6 10 ^3/uL Lymphocytes # (Auto) 0.8 0.4-5.4 10 ^3/uL Monocytes # (Auto) 1.2 0-1.3 10 ^3/uL Eosinophils # (Auto) 0.2 0-0.8 10 ^3/uL Basophils # (Auto) 0.1 0-0.2 10 ^3/uL Nucleated Red Blood Cells 0.0 % Sodium Level 131 L 136-145 mmol/L Potassium Level 4.2 3.5-5.1 mmol/L Chloride Level 100 98-107 mmol/L Carbon Dioxide Level 21 20-31 mmol/L Anion Gap 10 5-15 Blood Urea Nitrogen 45 H 9-23 mg/dL Creatinine 1.65 H 0.550-1.02 mg/dL Glomerular Filtration Rate Calc 35 >90 mL/min BUN/Creatinine Ratio 27.3 H 10.0-20.0 Serum Glucose 369 H 74-106 mg/dL Lactic Acid Level 1.9 0.4-2.0 mmol/L Calcium Level 9.9 8.7-10.4 mg/dL Total Bilirubin 0.3 0.2-1.0 mg/dL Aspartate Amino Transferase (AST) 8 L 13-40 U/L Alanine Aminotransferase (ALT) 12 7-40 U/L Alkaline Phosphatase 262 H 46-116 U/L Total Protein 7.5 5.7-8.2 g/dL Albumin 4.5 3.2-4.8 g/dL Lipase 68 H 12-53 U/L PATIENT: SURY OSBORNE CACCT: [id number] UNIT: [id number] : 1965 LOC: ER ROOM / BED: / AGE / SEX: 59 / F ADM STATUS: REG ER SERVICE 1549 ORDERING PHYSICIAN: ANAYA CELESTE DO PROCEDURE(s): ABPL - CT AB PEL WO CON-NO ORAL OR IV REASON: lower abd pain ORDER NUMBER(s): [id number], ACCESSION NUMBER(s): [id number] Exam: CT CT AB PEL WO CON-NO ORAL OR IV History: lower abd pain Comparison Study: None available at time of dictation. TECHNIQUE: Multidetector CT of the abdomen was performed from lung bases to pubic symphysis. Imaging was performed without IV contrast. Axial, coronal and sagittal multiplanar reformats were obtained from the axial data set by the technologist. Radiation Dose Information: CT Dose: CTDI volume is 23.43 mGy. Dose-length product is 1101.55 mGy*cm FINDINGS: Evaluation of solid organs is limited due to lack of intravenous contrast use. Findings: Lung Bases: Bibasilar areas of atelectasis or infiltrate in the posterior co stophrenic angles. Normal heart size. No pleural or pericardial effusion. Liver: The liver is normal in size. No focal lesions. Liver measures 23 cm long Gallbladder and Biliary Tree: Unremarkable Spleen: Unremarkable Pancreas: The pancreas is grossly normal in appearance. Adrenal Glands: Unremarkable Kidneys: Kidneys are grossly normal without calculi or hydronephrosis. Possible distal left ureteral calculus measuring 2 mm no left hydronephrosis Bladder: Grossly unremarkable for degree of distention. Bowel: The stomach is grossly normal in appearance. Small bowel and colon are normal in caliber and distribution. The appendix is not visualized; however, no secondary findings of acute appendicitis identified. Ascites: Absent Lymphadenopathy: No mesenteric, retroperitoneal or periportal lymphadenopathy. Abdominal Wall and Mesentery: Unremarkable. Vasculature: The visualized abdominal aorta is normal in size and caliber. Evaluation of abdominal and pelvic vessels is limited due to lack of intravenous contrast. Pelvic Organs: Unremarkable Musculoskeletal: No aggressive focal bony lesions, acute fractures or dislocation. Soft tissues: Unremarkable IMPRESSION: 1. No bowel obstruction 2. Moderately large stool burden throughout the colon. 3. No calcified gallstones 4. Possible 2 mm nonobstructing distal left ureteral calculus (series 2 image 60) ORDERING PHYSICIAN: ANAYA CELESTE DO PROCEDURE(s): CXRP - CHEST PORTABLE REASON: elevated trop ORDER NUMBER(s): [id number], ACCESSION NUMBER(s): [id number] CHEST RADIOGRAPH Indication: elevated trop Technique: Single frontal view of the chest was obtained Comparison: XY CHEST PORTABLE on DOS: 01/12/24, XY CHEST XRAY 1 VIEW on DOS: 04/01/23, XY CHEST PORTABLE on DOS: 03/25/23 FINDINGS: Lines and Tubes: None Lungs: No focal consolidation. Mild interstitial prominence. Pleura: No effusion. No pneumothorax. Cardiomediastinal contours: Unremarkable Bones: No acute osseous abnormality. IMPRESSION: Mild pulmonary vascular congestion. Assessment/Plan Assessment/Plan Abdominal pain Leukocytosis, unspecified Ureteral stone Hypertensive urgency Elevated troponin Constipation Acute renal injury Hyperglycemia due to diabetes mellitus Uncontrolled diabetes mellitus Generalized weakness Plan 1. Admit to telemetry unit 2. Breathing treatment 3. Pain control management 4. IV antibiotic management 5. Management of fluids and electrolytes 6. Consultation for hospitalist 7. Diagnostic test embolism pelvis CT 8. DVT prophylaxis-on aspirin 9. Repeat labs CBC, CMP in a.m. 10. Home medication reviewed and reconciled 11. Continue with current medical management 12. Treatment plan discussed with patient and RN. Patient verbalized understanding. Plan discussed with: Patient, Other (RN) My Orders Orders - GHANSHYAM MISTRY DNP Procedure Category Date Status Time Zosyn Extended PHA 06/29/24 Verified Infusion 22:00 *Dr[facility] CONS 06/29/24 Verified -[place] 21:41 Aspirin Tablet PHA 06/30/24 Verified 10:00 Hydralazine Injection PHA 06/29/24 Verified (Apresoline Inject 21:45 Metoprolol Tartrate PHA 06/29/24 Verified Tablet (Lopressor Ta 22:00 Glucose Blood PHA 06/30/24 Verified (Accu-Chek Comfort 00:00 Moderate Insulin Ss PHA 06/30/24 Verified 00:00 Dextrose 50% Syringe PHA 06/29/24 Verified 21:45 Admit ADMIT 06/29/24 Verified 21:41 Allergies MADHU 06/29/24 Verified 21:41 Code Status CODE 06/29/24 Verified 21:41 0.9% Ns 1000 Ml PHA 06/29/24 Verified 21:45 Oxygen Per Hour RT 06/29/24 Verified 21:41 Hydrocodone-Acet PHA 06/29/24 Verified 5/325mg Tab ([place] 21:45 Ondansetron Hcl PHA 06/29/24 Verified (Zofran) 21:45 Docusate Sodium PHA 06/29/24 Verified Capsule ([place] 21:45 Complete Blood Count LAB 06/30/24 Verified 04:00 Comprehensive LAB 06/30/24 Verified Metabolic Panel 04:00 Condition: Serious MADHU 06/29/24 Verified 21:41 Acetaminophen Tablet PHA 06/29/24 Verified (Tylenol Tablet) 21:45 Clear Liq Diet DIET 06/30/24 Verified Breakfast Bedrest With Bathroom MADHU 06/29/24 Verified Privileg 21:[address] [facility] 06/29/24 Verified Compression Device Nitroglycerin [facility] 06/29/24 Verified Sublingual (Ntrostat 21:45 Morphine Sulfate PHA 06/29/24 Verified Injection 21:45 Stat Ekg For Chest [facility] 06/29/24 Verified Pain 21:41 Notify Md Of Changes [facility] 06/29/24 Verified From Base 21:41 Senior Net Web Developer For [facility] 06/29/24 Verified 24 Hours 21:[address] [facility] 06/29/24 Verified Protocol 21:41 Rhythm Strips [address] [facility] 06/29/24 Verified Every Shift 21:41 Oxygen By Nasal RT 06/29/24 Verified Cannula 21:41 Famotidine Injection [facility] 06/29/24 Verified (Pepcid Injection) 22:00 Atorvastatin (Lipitor) PHA 06/29/24 Verified 22:00 Problem List: (1) Abdominal pain (2) Hypertensive urgency (3) Elevated troponin (4) Uncontrolled diabetes mellitus (5) Ureteral stone (6) Leukocytosis, unspecified (7) Constipation (8) Generalized weakness (9) Acute renal injury (10) Hyperglycemia due to diabetes mellitus Date of Service: Jun 29, 2024 Billing Provider: GHANSHYAM MISTRY DNP Common Visit Codes: [id number] INP/OBS CARE (HIGH) GHANSHYAM MISTRY DNP Jun 29, 2024 21:56
[2024-06-29] MEDS: HYDROcodone-ACET 5/325MG TAB PO PRN (22:43)
[2024-06-29] MEDS: METOPROLOL TARTRATE 50 MG TAB PO SCH (23:02)
[2024-06-29] MEDS: ATORVASTATIN 20 MG TAB PO SCH (23:04)
[2024-06-29] MEDS: FAMOTIDINE (10MG/ML) 2ML VL IV SCH (23:05)
[2024-06-29] MEDS: PIPERACILLIN-TAZOB 3.375GM 100 ML IV SCH (23:05)
[2024-06-29] MEDS: SODIUM CHLORIDE 0.9% 1,000 ML IV SCH (23:06)
[2024-06-30] VITALS (8 sets, daily range): BP systolic 120–153; BP diastolic 69–91; PULSE 76–90; RESP 18–19; TEMP 97.4–98; O2SAT 96–98
[2024-06-30] MEDS: ACCU-CHEK COMFORT CURVE STRIP VI SCH (01:02)
[2024-06-30] MEDS: InsuLIN REG 1unit/0.01ml Soln (100units/ml) SC SCH (01:05)
[2024-06-30] MEDS: ONDANSETRON HCL 4 MG/2 ML VIAL IV PRN (01:16)
[2024-06-30] MEDS: MORPHINE SULFATE INJ 2 MG/ml SYRG IV PRN ×2 (01:21→09:01)
[2024-06-30 07:00] LABS: Alanine Aminotransferase 13 U/L (7-40); Albumin 4.4 g/dL (3.2-4.8); Alkaline Phosphatase 192 U/L (46-116); Anion Gap 14 (5-15); Aspartate Aminotransferase 17 U/L (13-40); BUN/Creatinine Ratio 26.7 (10.0-20.0); Bilirubin, Total 0.4 mg/dL (0.2-1.0); Blood Urea Nitrogen 43 mg/dL (9-23); Calcium 9.6 mg/dL (8.7-10.4); Carbon Dioxide 17 mmol/L (20-31); Chloride 103 mmol/L (98-107); Glucose 254 mg/dL (74-106); Potassium 5.1 mmol/L (3.5-5.1); Sodium 134 mmol/L (136-145); Total Protein 7.3 g/dL (5.7-8.2)
[2024-06-30 07:07] LABS: Basophils # (auto) 0.1 10 ^3/uL (0-0.2); Basophils % (auto) 0.5 % (0.0-2.0); Eosinophils # (auto) 0.2 10 ^3/uL (0-0.8); Eosinophils % (auto) 1.5 % (0.0-7.0); Hematocrit 36.7 % (36.0-46.0); Hemoglobin 11.6 g/dL (12.2-16.2); Lymphocytes % (auto) 6.4 % (10.0-50.0); Mean Corpuscular Hemoglobin 26.9 pg (28.0-32.0); Mean Corpuscular Hgb Conc. 31.7 g/dL (32.0-36.0); Mean Corpuscular Volume 84.7 fL (80.0-100.0); Monocytes % (auto) 6.1 % (0.0-12.0); Neutrophils # (auto) 13.4 10 ^3/uL (1.6-8.6); Neutrophils % (auto) 85.5 % (37.0-80.0); Nucleated Red Blood Cells % 0.1 %; Platelet Count (auto) 296 10^3/uL (140-450); Red Blood Cells 4.33 10^6/uL (4.0-5.20); Red Cell Distribution Width 14.8 % (11.8-14.3); White Blood Cell 15.7 10^3/uL (4.4-10.8)
[2024-06-30] MEDS: ASPirin 81 mg TAB PO SCH (08:51)
--- NOTE | 2024-06-30 13:10 | DVHPN2 ---
Subjective The patient is seen and examined at bedside. No complaint today Reviewed: Care Plan, H&P, Labs, Medications, Previous Orders, Radiology Changes from previous H/P or p: No Changes Eyes: No Pain, No Vision change, No Conjunctivae inflammation, No Eyelid inflammation, No Other, No Redness ENT: No Ear pain, No Ear discharge, No Nose pain, No Nose discharge, No Nose congestion, No Mouth pain, No Mouth swelling, No Throat pain, No Throat swelling, No Other Cardiovascular: No Chest Pain, No Palpitations, No Orthopnea, No Paroxysmal Noc. Dyspnea, No Edema, No Lt Headedness, No Other Respiratory: No Cough, No Dry; Shortness of breath; No SOB with excertion, No Wheezing, No Hemoptysis, No Pleuritic Pain, No Sputum, No Other Gastrointestinal: No Nausea, No Vomiting, No Abdominal Pain, No Diarrhea, No Constipation, No Melena, No Hematochezia, No Other Genitourinary: No Dysuria, No Frequency, No Incontinence, No Hematuria, No Retention, No Other Musculoskeletal: No other, No neck pain, No shoulder pain, No arm pain, No back pain, No hand pain, No leg pain, No foot pain Skin: No Rash, No Lesions, No Jaundice, No Bruising, No Other Objective Vitals Vital Signs Date Time Temp Pulse Resp B/P (MAP) Pulse Ox O2 Delivery O2 Flow Rate FiO2 06/30/24 09:11 98.0 77 18 132/73 (92) 96 98.0 06/30/24 08:00 Room Air* 0 21 Intake/Output Intake and Output 06/30/24 07:00 Intake Total 260 ml Balance 260 ml Intake Oral 0 ml IV Total 260 ml General Appearance: Alert, No acute distress HEENT: Atraumatic, PERRLA, EOMI, Mucous membr. moist/pink Neck: Supple Lungs: Clear to auscultation, Normal air movement Cardiovascular: Regular rate, Normal S1, Normal S2, No murmurs, Gallops, Rubs Abdomen: Normal bowel sounds, Soft, No tenderness, No hepatospenomegaly Neuro: Cranial nerves 3-12 NL Psych/Mental Status: Mental status NL Medications Current Medications Medications Dose Ordered Sig/Ronn Route Start Time Stop Time Status Last Admin Dose Admin Piperacillin Sod/ Tazobactam Sod 100 ml @ 25 mls/hr Q8HR IV 06/29/24 22:00 06/30/24 05:15 25 MLS/HR Aspirin 81 mg DAILY PO 06/30/24 10:00 06/30/24 08:51 81 MG Hydralazine HCl 10 mg Q6HP PRN IV 06/29/24 21:45 Metoprolol Tartrate 50 mg BID PO 06/29/24 22:00 06/30/24 08:51 50 MG Diagnostic Test (Pha) 1 strip IQ4HR 06/30/24 00:00 06/30/24 08:49 1 STRIP Insulin Human Regular IQ4HR SC 06/30/24 00:00 06/30/24 09:26 9 UNITS Dextrose 50 ml UD PRN IV 06/29/24 21:45 Sodium Chloride 1,000 ml @ 60 mls/hr [id number] IV 06/29/24 21:45 06/29/24 23:06 60 MLS/HR Acetaminophen/ Hydrocodone Bitart 1 tab Q4HP PRN PO 06/29/24 21:45 06/29/24 22:43 1 TAB Ondansetron HCl 4 mg Q4HP PRN IV 06/29/24 21:45 06/30/24 08:57 4 MG Docusate Sodium 100 mg BIDPRN PRN PO 06/29/24 21:45 Acetaminophen 650 mg Q6HP PRN PO 06/29/24 21:45 Nitroglycerin 0.4 mg Q5MINP PRN SL 06/29/24 21:45 Morphine Sulfate 2 mg Q30M PRN IV 06/29/24 21:45 06/30/24 01:21 2 MG Famotidine 20 mg Q12HR IV 06/29/24 22:00 06/30/24 08:54 20 MG Atorvastatin Calcium 10 mg HS PO 06/29/24 22:00 06/29/24 23:04 10 MG Morphine Sulfate 2 mg Q4HPRN PRN IV 06/29/24 22:45 06/30/24 09:01 2 MG Laboratory Results Laboratory Tests 06/30/24 06:17 Chemistry Test 06/29/24 16:14 06/30/24 06:17 Albumin 4.5 g/dL (3.2-4.8) 4.4 g/dL (3.2-4.8) Calcium Level 9.9 mg/dL (8.7-10.4) 9.6 mg/dL (8.7-10.4) Total Protein 7.5 g/dL (5.7-8.2) 7.3 g/dL (5.7-8.2) Lipid panel Test 06/29/24 16:14 Lipase 68 U/L (12-53) H LFT Test 06/29/24 16:14 06/30/24 06:17 Alanine Aminotransferase (ALT) 12 U/L (7-40) 13 U/L (7-40) Alkaline Phosphatase 262 U/L (46-116) H 192 U/L (46-116) H Aspartate Amino Transferase (AST) 8 U/L (13-40) L 17 U/L (13-40) Total Bilirubin 0.3 mg/dL (0.2-1.0) 0.4 mg/dL (0.2-1.0) Urinalysis Test 06/29/24 17:00 Urine Color Colorless (Yellow) Urine Clarity Clear (Clear) Urine pH 6.0 (5.0-9.0) Urine Specific [place] 1.010 (1.001-1.035) Urine Protein 2+ (Negative) H Urine Ketones Negative (Negative) Urine Blood 1+ /uL (Negative) H Urine Nitrite Negative (Negative) Urine Bilirubin Negative (Negative) Urine Urobilinogen Normal mg/dL (Negative) Urine Leukocyte Esterase Negative /uL (Negative) Urine RBC 3 /hpf (0 - 4) Urine Microscopic WBC 1 /HPF (0-5) Urine Squamous Epithelial Cells Few /hpf (<5) Urine Bacteria Few /hpf (None Seen) H Urine Glucose 4+ mg/dL (Normal) H Labs and/or images reviewed: Labs reviewed by me Assessment/Plan Assessment/Plan Abdominal pain Leukocytosis, unspecified Ureteral stone Hypertensive urgency Elevated troponin Constipation Acute renal injury Hyperglycemia due to diabetes mellitus Uncontrolled diabetes mellitus Generalized weakness Continuing current management. Continuing with hypertensive medication. Continuing with stool softener. Continuing with IV fluid. We will monitor kidney function. Nephrology input appreciated. Waiting for Urology to see the patient. Continuing sliding scale insulin. Also waiting for riveting machine operator tape control to see the patient. Continuing IV antibiotics This medical document was created using an electronic medical record system with [employer] direct computerized dictation system. Although this document has been carefully reviewed, there may still be some phonetic and typographical errors. These areas are purely typographical due to imperfections of the software programs, and do not reflect any compromise in the patient's medical care. Plan discussed with: Patient Date of Service: Jun 30, 2024 Billing Provider: YSABEL GARY MD Common Visit Codes: [id number] INP/OBS CARE(HIGH) YSABEL GARY MD Jun 30, 2024 13:10
--- NOTE | 2024-06-30 14:33 | DVHINCON2 ---
Date of service: Jun 30, 2024 Reason for Consultation Acute kidney injury History of Present Illness 59 years old female with past medical history of morbid obesity Chronic kidney disease IIIb, hypertension, CVA, diabetes, presented with chief complaints of lower abdominal pain radiating to the back for the past one day associated with dysuria Denies any other complaints on arrival her blood pressure is very with SBP greater than 190 She also denies any NSAIDs use denies any supplements Past Medical History As per HPI Past Surgical History As per HPI Allergies: Coded Allergies: NO KNOWN ALLERGIES (Unverified , 12/31/15) Home Meds Active Scripts Hydrocodone-Acetaminophen (Hydrocodone Bitartrate/AC 5-325 mg) 1 Tab Tab, 1 TAB PO Q8HP PRN for 7 Days, #21 TAB Prov:PAYAM PEREZ MD 01/21/24 Nifedipine (Nifedipine Er) 30 Mg Tab, 60 MG PO DAILY for 30 Days, #60 TAB 3 Refills Prov:DUSTIN OLIVERA DO 01/17/24 Metoprolol Tartrate (Lopressor) 25 Mg Tb, 12.5 MG PO BID for 30 Days, #30 TAB 3 Refills Prov:DUSTIN OLIVERA DO 01/17/24 Levalbuterol HCl (Levalbuterol HCl) 1.25 Mg/3 Ml Neb, 0.625 MG NEB Q6HR for 30 Days, #30 INH 3 Refills Prov:DUSTIN OLIVERA DO 01/17/24 Atorvastatin Calcium (ATORVASTATIN CALCIUM) 20 Mg Tab, 80 MG PO HS for 30 Days, #30 TAB 3 Refills Prov:CORRY CAMPOS MD 04/05/23 Aspirin (Aspirin Low Dose) 81 Mg Tab, 81 MG PO DAILY for 30 Days, #30 TAB 3 Refills Prov:CORRY CAMPOS MD 04/05/23 Pantoprazole Sodium Sesquihydr (Pantoprazole Sodium) 40 Mg Tab, 40 MG PO DAILY for 30 Days, #30 TAB 2 Refills Prov:CORRY CAMPOS MD 03/30/23 Reported Medications Cyclobenzaprine Hcl (Cyclobenzaprine Hcl) 10 Mg Tab, 10 MG PO [id number], TAB 01/13/24 Glimepiride (Glimepiride) 1 Mg Tab, 1 TAB PO DAILY 9/21/24 Fluoxetine Hcl (Fluoxetine Hcl) 40 Mg Cap, 1 CAP PO DAILY 03/26/23 Alprazolam (Alprazolam) 0.5 Mg Tab, PO 03/26/23 Lamotrigine (Lamotrigine) 200 Mg Tab, 1 TAB PO BID 03/26/23 Bupropion Hcl (Bupropion Hcl Xl) 300 Mg Tab, 1 TAB PO DAILY 03/26/23 Divalproex Sodium (Divalproex Sodium) 500 Mg Tab, 1 TAB PO DAILY 03/26/23 Quetiapine Fumerate (QUETIAPINE FUMARATE) 400 Mg Tab, 1 TAB PO BID 03/26/23 Current Medications Current Medications Medications (Trade) Dose Ordered Sig/Ronn Route PRN Reason Start Time Stop Time Status Last Admin Piperacillin Sod/ Tazobactam Sod 100 ml @ 25 mls/hr Q8HR IV 06/29/24 22:00 06/30/24 05:15 Aspirin 81 mg DAILY PO 06/30/24 10:00 06/30/24 08:51 Hydralazine HCl (Apresoline Injection) 10 mg Q6HP PRN IV SBP>150 06/29/24 21:45 Metoprolol Tartrate (Lopressor Tablet) 50 mg BID PO 06/29/24 22:00 06/30/24 08:51 Diagnostic Test (Pha) (Accu-Chek Comfort Curve T) 1 strip IQ4HR 06/30/24 00:00 06/30/24 08:49 Insulin Human Regular (InsuLIN R) IQ4HR SC 06/30/24 00:00 06/30/24 09:26 Dextrose 50 ml UD PRN IV Blood Sugar LESS THAN 60 06/29/24 21:45 Sodium Chloride 1,000 ml @ 60 mls/hr [id number] IV 06/29/24 21:45 06/29/24 23:06 Acetaminophen/ Hydrocodone Bitart ([place] 5/325MG Tab) 1 tab Q4HP PRN PO MODERATE PAIN (4-6 PAIN SCALE) 06/29/24 21:45 06/29/24 22:43 Ondansetron HCl (Zofran) 4 mg Q4HP PRN IV NAUSEA / VOMITING 06/29/24 21:45 06/30/24 08:57 Docusate Sodium (Colace Capsule) 100 mg BIDPRN PRN PO FOR CONSTIPATION 06/29/24 21:45 Acetaminophen (Tylenol Tablet) 650 mg Q6HP PRN PO PAIN SCALE 1-3 OR TEMP>100.4 06/29/24 21:45 Nitroglycerin (Ntrostat Sublingual) 0.4 mg Q5MINP PRN SL FOR CHEST PAIN 06/29/24 21:45 Morphine Sulfate 2 mg Q30M PRN IV FOR CHEST PAIN 06/29/24 21:45 06/30/24 01:21 Famotidine (Pepcid Injection) 20 mg Q12HR IV 06/29/24 22:00 06/30/24 08:54 Atorvastatin Calcium (Lipitor) 10 mg HS PO 06/29/24 22:00 06/29/24 23:04 Morphine Sulfate 2 mg Q4HPRN PRN IV MODERATE PAIN (4-6 PAIN SCALE) 06/29/24 22:45 06/30/24 09:01 Family History: Aneurysm Cardiovascular disease G8 MOTHER Diabetes mellitus G8 MOTHER G8 FATHER Social History Denies any Review of Systems As documented in HPI H&P Exam Vital Signs/I&O Vital Sign Date Time Temp Pulse Resp B/P (MAP) Pulse Ox O2 Delivery O2 Flow Rate FiO2 06/30/24 09:11 98.0 77 18 132/73 (92) 96 98.0 06/30/24 08:00 Room Air* 0 21 Intake and Output 06/29/24 06/30/24 19:00 07:00 Intake Total 260 ml Balance 260 ml Intake Oral 0 ml IV Total 260 ml Physical Exam General-not in any distress HEENT-normocephalic, no icterus, no pallor, neck supple Respiratory-fair air entry bilateral, no rhonchi, no wheeze [id number] heard, no murmurs appreciated Abdominal-soft, nontender, nondistended Musculoskeletal-no pedal edema, no calf tenderness Genitourinary-deferred Neuro-awake alert oriented x3, Psychiatric-not agitated, cooperative, Labs/Diagnostic Data Labs/Diagnostic Data Laboratory Tests Test 06/30/24 11:25 06/30/24 08:46 06/30/24 06:17 06/30/24 05:19 Range/Units POC Glucose 92 292 H 252 H 70-106 mg/dl White Blood Count 15.7 H 4.4-10.8 10^3/uL Red Blood Count 4.33 4.0-5.20 10^6/uL Hemoglobin 11.6 L 12.2-16.2 g/dL Hematocrit 36.7 36.0-46.0 % Mean Corpuscular Volume 84.7 # 80.0-100.0 fL Mean Corpuscular Hemoglobin 26.9 L 28.0-32.0 pg Mean Corpuscular Hemoglobin Concent 31.7 L 32.0-36.0 g/dL Red Cell Distribution Width 14.8 H 11.8-14.3 % Platelet Count 296 140-450 10^3/uL Mean Platelet Volume 8.0 6.9-10.8 fL Neutrophils (%) (Auto) 85.5 H 37.0-80.0 % Lymphocytes (%) (Auto) 6.4 L 10.0-50.0 % Monocytes (%) (Auto) 6.1 0.0-12.0 % Eosinophils (%) (Auto) 1.5 0.0-7.0 % Basophils (%) (Auto) 0.5 0.0-2.0 % Neutrophils # (Auto) 13.4 H 1.6-8.6 10 ^3/uL Lymphocytes # (Auto) 1.0 0.4-5.4 10 ^3/uL Monocytes # (Auto) 1.0 0-1.3 10 ^3/uL Eosinophils # (Auto) 0.2 0-0.8 10 ^3/uL Basophils # (Auto) 0.1 0-0.2 10 ^3/uL Nucleated Red Blood Cells 0.1 % Sodium Level 134 L 136-145 mmol/L Potassium Level 5.1 3.5-5.1 mmol/L Chloride Level 103 98-107 mmol/L Carbon Dioxide Level 17 L 20-31 mmol/L Anion Gap 14 5-15 Blood Urea Nitrogen 43 H 9-23 mg/dL Creatinine 1.61 H 0.550-1.02 mg/dL Glomerular Filtration Rate Calc 36 >90 mL/min BUN/Creatinine Ratio 26.7 H 10.0-20.0 Serum Glucose 254 H 74-106 mg/dL Calcium Level 9.6 8.7-10.4 mg/dL Total Bilirubin 0.4 0.2-1.0 mg/dL Aspartate Amino Transferase (AST) 17 13-40 U/L Alanine Aminotransferase (ALT) 13 7-40 U/L Alkaline Phosphatase 192 H 46-116 U/L Total Protein 7.3 5.7-8.2 g/dL Albumin 4.4 3.2-4.8 g/dL Test 06/30/24 01:00 06/29/24 19:14 06/29/24 17:34 06/29/24 17:00 Range/Units POC Glucose 190 H 70-106 mg/dl Troponin I High Sensitivity 55 *H 54 *H </=34 ng/L Urine Color Colorless Yellow Urine Clarity Clear Clear Urine pH 6.0 5.0-9.0 Urine Specific [place] 1.010 1.001-1.035 Urine Protein 2+ H Negative Urine Ketones Negative Negative Urine Blood 1+ H Negative /uL Urine Nitrite Negative Negative Urine Bilirubin Negative Negative Urine Urobilinogen Normal Negative mg/dL Urine Leukocyte Esterase Negative Negative /uL Urine RBC 3 0 - 4 /hpf Urine Microscopic WBC 1 0-5 /HPF Urine Squamous Epithelial Cells Few <5 /hpf Urine Bacteria Few H None Seen /hpf Urine Glucose 4+ H Normal mg/dL Test 06/29/24 16:14 Range/Units White Blood Count 15.9 H 4.4-10.8 10^3/uL Red Blood Count 4.25 4.0-5.20 10^6/uL Hemoglobin 11.3 L 12.2-16.2 g/dL Hematocrit 34.6 L 36.0-46.0 % Mean Corpuscular Volume 81.4 80.0-100.0 fL Mean Corpuscular Hemoglobin 26.6 L 28.0-32.0 pg Mean Corpuscular Hemoglobin Concent 32.6 32.0-36.0 g/dL Red Cell Distribution Width 14.5 H 11.8-14.3 % Platelet Count 298 140-450 10^3/uL Mean Platelet Volume 8.3 6.9-10.8 fL Neutrophils (%) (Auto) 85.6 H 37.0-80.0 % Lymphocytes (%) (Auto) 4.7 L 10.0-50.0 % Monocytes (%) (Auto) 7.9 0.0-12.0 % Eosinophils (%) (Auto) 1.3 0.0-7.0 % Basophils (%) (Auto) 0.5 0.0-2.0 % Neutrophils # (Auto) 13.6 H 1.6-8.6 10 ^3/uL Lymphocytes # (Auto) 0.8 0.4-5.4 10 ^3/uL Monocytes # (Auto) 1.2 0-1.3 10 ^3/uL Eosinophils # (Auto) 0.2 0-0.8 10 ^3/uL Basophils # (Auto) 0.1 0-0.2 10 ^3/uL Nucleated Red Blood Cells 0.0 % Sodium Level 131 L 136-145 mmol/L Potassium Level 4.2 3.5-5.1 mmol/L Chloride Level 100 98-107 mmol/L Carbon Dioxide Level 21 20-31 mmol/L Anion Gap 10 5-15 Blood Urea Nitrogen 45 H 9-23 mg/dL Creatinine 1.65 H 0.550-1.02 mg/dL Glomerular Filtration Rate Calc 35 >90 mL/min BUN/Creatinine Ratio 27.3 H 10.0-20.0 Serum Glucose 369 H 74-106 mg/dL Lactic Acid Level 1.9 0.4-2.0 mmol/L Calcium Level 9.9 8.7-10.4 mg/dL Total Bilirubin 0.3 0.2-1.0 mg/dL Aspartate Amino Transferase (AST) 8 L 13-40 U/L Alanine Aminotransferase (ALT) 12 7-40 U/L Alkaline Phosphatase 262 H 46-116 U/L Troponin I High Sensitivity 51 *H </=34 ng/L Total Protein 7.5 5.7-8.2 g/dL Albumin 4.5 3.2-4.8 g/dL Lipase 68 H 12-53 U/L Assessment Acute kidney injury on Chronic kidney disease IIIb hemodynamic mediated etiology in the setting of hypertensive emergency Metabolic acidosis Diabetes Hypertension Morbid obesity CVA Nonobstructive kidney stone [address] scan Recommendations Blood pressure control Check urine cultures given dysuria No hydronephrosis Hydration 3 L water Stone workup as outpatient Check U PCR We will follow now Plan discussed with: Patient ELISA SAENZ MD Jun 30, 2024 14:33
[2024-07-01] VITALS (7 sets, daily range): BP systolic 126–183; BP diastolic 67–92; PULSE 72–85; RESP 16–18; TEMP 97.2–98.6; O2SAT 97–99
[2024-07-01] MEDS: hydrALAZINE HCL 20 MG/ML VL IV PRN (02:06)
[2024-07-01 03:59] LABS: Protein, Urine 221.7 mg/dL (1-14)
[2024-07-01 04:02] LABS: Creatinine, Urine 71.88 mg/dL (30.0-125.0)
--- NOTE | 2024-07-01 13:54 | DVHPNRES ---
Progress Note Date Seen: Jul 01, 2024 Resident Creating Document: BRENT GILMAN RESIDENT Medical Necessity Reason Pt with a Central, PICC or Fol: No Subjective Patient reports: No new complaints, Feels better Other Systems: Patient seen and examined by myself today on rounds with the medicine resident, I agree with the assessment and plan as documented in his note Objective vital signs Vital Sign Date Time Temp Pulse Resp B/P (MAP) Pulse Ox O2 Delivery O2 Flow Rate FiO2 07/01/24 09:00 98.6 85 18 126/79 (95) 98 98.6 07/01/24 08:00 Room Air* 0 21 Total Intake and Output 06/30/24 06/30/24 07/01/24 15:00 23:00 07:00 Intake Total 100 ml 300 ml 240 ml Balance 100 ml 300 ml 240 ml medications Current Medications Medications Dose Ordered Sig/Ronn Route Start Time Stop Time Status Last Admin Dose Admin Piperacillin Sod/ Tazobactam Sod 100 ml @ 25 mls/hr Q8HR IV 06/29/24 22:00 07/01/24 05:00 25 MLS/HR Aspirin 81 mg DAILY PO 06/30/24 10:00 07/01/24 07:53 81 MG Hydralazine HCl 10 mg Q6HP PRN IV 06/29/24 21:45 07/01/24 02:06 10 MG Metoprolol Tartrate 50 mg BID PO 06/29/24 22:00 07/01/24 07:56 50 MG Diagnostic Test (Pha) 1 strip IQ4HR 06/30/24 00:00 07/01/24 11:46 1 STRIP Insulin Human Regular IQ4HR SC 06/30/24 00:00 07/01/24 11:52 2 UNITS Dextrose 50 ml UD PRN IV 06/29/24 21:45 Sodium Chloride 1,000 ml @ 60 mls/hr [id number] IV 06/29/24 21:45 06/29/24 23:06 60 MLS/HR Acetaminophen/ Hydrocodone Bitart 1 tab Q4HP PRN PO 06/29/24 21:45 06/30/24 22:19 1 TAB Ondansetron HCl 4 mg Q4HP PRN IV 06/29/24 21:45 07/01/24 08:14 4 MG Docusate Sodium 100 mg BIDPRN PRN PO 06/29/24 21:45 Acetaminophen 650 mg Q6HP PRN PO 06/29/24 21:45 Nitroglycerin 0.4 mg Q5MINP PRN SL 06/29/24 21:45 Morphine Sulfate 2 mg Q30M PRN IV 06/29/24 21:45 06/30/24 01:21 2 MG Famotidine 20 mg Q12HR IV 06/29/24 22:00 07/01/24 07:59 20 MG Atorvastatin Calcium 10 mg HS PO 06/29/24 22:00 06/30/24 22:08 10 MG Morphine Sulfate 2 mg Q4HPRN PRN IV 06/29/24 22:45 07/01/24 08:15 2 MG Examination GENERAL:Normal, HEENT:Normal, NECK:Normal, LUNGS:Normal, CVS:Normal, ABDOMEN:Normal, MSK:Abnormal, SKIN:Normal, NEURO:Normal, :Normal laboratory and microbiology Laboratory Tests 06/30/24 06:17 Test 06/30/24 06:17 Range/Units Serum Glucose 254 H 74-106 mg/dL Microbiology Date/Time Source Procedure Growth Status 06/29/24 18:01 Blood Blood Culture - Preliminary NO GROWTH AFTER 24 HOURS OF INCUBATION. Resulted Labs and/or images reviewed: Labs reviewed by me, Image(s) reviewed by me Problem List/Assessment/Plan Problem List/Assessment/Plan Nephrology Consult/ Progress Note: Assessment: #Acute kidney injury due to VMN, hemodynamic mediated etiology in the setting of hypertensive emergency #Likely Chronic kidney disease IIIb Metabolic acidosis # Diabetes type II #Hypertension, uncontrolled #Hypertensive urgency #Obesity grade II #Nonobstructive kidney stone [address] scan #hydronephrosis ruled out. Findings: #GFR: 36 #Creatinine: 1.65>1.61 #I&O: not well documented #FeNa: 0.8% prerenal. #BUN: Cr: 26.7 prerenal azotemia Plan: #Strict I&O and check Daily weight.Avoid Nephrotoxics ,Avoid hyper/hypo tension ,Fluid Restriction. #Daily BMP, urine culture, strain urine, stone workup. #Blood pressure control target BP 130/80 or below in adult diabetic as per AHA/ACC guidelines. #Close follow up with nephrology outpatient valdez. #Rest of the management as per primary team. Thank you for the opportunity to follow up on your patient. In case of any question feel free to reach out to the Nephrology team. Discussed with Nephrology attending Dr. Mosley. Plan discussed with: Patient, Other (primary team RN) BRENT GILMAN Jul 01, 2024 13:53 STEFFANY MOSLEY MD Jul 01, 2024 16:32
--- NOTE | 2024-07-01 15:23 | DVHPN2 ---
Progress Note Date Seen: Jul 01, 2024 Medical Necessity Reason Pt with a Central, PICC or Fol: No Subjective Patient reports: No new complaints Review of Systems: HEENT:Normal, CVS:Normal, RESPIRATORY:Normal, GI:Normal, :Normal, MSK:Normal, NEURO:Normal Objective vital signs Vital Sign Date Time Temp Pulse Resp B/P (MAP) Pulse Ox O2 Delivery O2 Flow Rate FiO2 07/01/24 14:09 76 20 138/79 07/01/24 09:00 98.6 98 98.6 07/01/24 08:00 Room Air* 0 21 Total Intake and Output 06/30/24 06/30/24 07/01/24 15:00 23:00 07:00 Intake Total 100 ml 300 ml 240 ml Balance 100 ml 300 ml 240 ml medications Current Medications Medications Dose Ordered Sig/Ronn Route Start Time Stop Time Status Last Admin Dose Admin Piperacillin Sod/ Tazobactam Sod 100 ml @ 25 mls/hr Q8HR IV 06/29/24 22:00 07/01/24 14:12 25 MLS/HR Aspirin 81 mg DAILY PO 06/30/24 10:00 07/01/24 07:53 81 MG Hydralazine HCl 10 mg Q6HP PRN IV 06/29/24 21:45 07/01/24 02:06 10 MG Metoprolol Tartrate 50 mg BID PO 06/29/24 22:00 07/01/24 07:56 50 MG Diagnostic Test (Pha) 1 strip IQ4HR 06/30/24 00:00 07/01/24 11:46 1 STRIP Insulin Human Regular IQ4HR SC 06/30/24 00:00 07/01/24 11:52 2 UNITS Dextrose 50 ml UD PRN IV 06/29/24 21:45 Sodium Chloride 1,000 ml @ 60 mls/hr [id number] IV 06/29/24 21:45 06/29/24 23:06 60 MLS/HR Acetaminophen/ Hydrocodone Bitart 1 tab Q4HP PRN PO 06/29/24 21:45 06/30/24 22:19 1 TAB Ondansetron HCl 4 mg Q4HP PRN IV 06/29/24 21:45 07/01/24 14:06 4 MG Docusate Sodium 100 mg BIDPRN PRN PO 06/29/24 21:45 Acetaminophen 650 mg Q6HP PRN PO 06/29/24 21:45 Nitroglycerin 0.4 mg Q5MINP PRN SL 06/29/24 21:45 Morphine Sulfate 2 mg Q30M PRN IV 06/29/24 21:45 06/30/24 01:21 2 MG Famotidine 20 mg Q12HR IV 06/29/24 22:00 07/01/24 07:59 20 MG Atorvastatin Calcium 10 mg HS PO 06/29/24 22:00 06/30/24 22:08 10 MG Morphine Sulfate 2 mg Q4HPRN PRN IV 06/29/24 22:45 07/01/24 14:09 2 MG Quetiapine Fumarate 400 mg BID PO 07/01/24 22:00 UNV Bupropion HCl 150 mg BID@07,19 PO 07/01/24 19:00 UNV Fluoxetine HCl 40 mg DAILY PO 07/02/24 10:00 UNV Lamotrigine 200 mg Q12HR PO 07/01/24 22:00 UNV Divalproex Sodium 500 mg DAILY PO 07/02/24 10:00 UNV Lactulose 30 ml BID PO 07/01/24 22:00 UNV Examination: GENERAL:Normal, HEENT:Normal, NECK:Normal, LUNGS:Normal, CVS:Normal, ABDOMEN:Normal, ABDOMEN:Abnormal (right side abd tenderness), MSK:Normal, SKIN:Normal, NEURO:Normal, :Normal laboratory and microbiology Laboratory Tests 06/30/24 06:17 Test 06/30/24 06:17 Range/Units Serum Glucose 254 H 74-106 mg/dL Microbiology Date/Time Source Procedure Growth Status 06/29/24 18:01 Blood Blood Culture - Preliminary NO GROWTH AFTER 24 HOURS OF INCUBATION. Resulted Problem List/Assessment/Plan Problem List/Assessment/Plan #1 abd pain ?right renal stone: ivf, mannitol #2 fecal impaction: bowel regimen #3 bipolar disorder: resume home meds #4 dm: ssi #5 htn ?urgency: cont meds #6 ckd stage 3 #7 obesity #8 hyperlipidemia #9 ?sirs ?sepsis: iv zosyn advance care planning- full code- time spent 19mins Plan discussed with: Patient My Orders My Orders Orders - CORRY CAMPOS MD Procedure Category Date Status Time Mannitol Ftv 25% 12.5 PHA 07/01/24 Logged Gm/50 Ml 15:15 Quetiapine Fumarate PHA 07/01/24 Logged Tablet (Seroquel Tab 22:00 Bupropion Tablet PHA 07/01/24 Logged (Wellbutrin Tablet) 19:00 Fluoxetine Capsule PHA 07/02/24 Logged (Prozac Capsule) 10:00 Lamotrigine Tablet PHA 07/01/24 Logged (Lamictal Tablet) 22:[address] Tablet PHA 07/02/24 Logged (Depakote "Dr" Tabl 10:00 Lactulose Oral PHA 07/01/24 Logged 15:15 Lactulose Oral PHA 07/01/24 Logged 22:00 Full Liq Diet DIET 07/01/24 Verified Dinner Basic Metabolic Panel LAB 07/02/24 Verified 06:00 Complete Blood Count LAB 07/02/24 Verified 06:00 Kub Abdomen Single XY 07/02/24 Verified View 06:00 Hydralazine Injection PHA 07/01/24 Verified (Apresoline Inject 15:30 Dietary Evaluation Review Comments: 1) Advance diet as medically feasible 2) Consider CCHO 45gm + renal specific 60gm protein diet as goal diet 3) Refer Loss Prevention Auditor on discharge 4) Continue current plan of care Expected Outcomes/Goals: Pt will meet >75% estimated needs Fu 3-5 days Date of Service: Jul 01, 2024 Billing Provider: CORRY CAMPOS MD Common Visit Codes: [id number] INP/OBS CARE(HIGH) Secondary Visit Codes: 44501-[id number] CARE PLAN 30 MINUTES CORRY CAMPOS MD Jul 01, 2024 15:23
[2024-07-01] MEDS ORDERED: hydrALAZINE HCL 20 MG/ML VL IV PRN (15:30)
[2024-07-01] MEDS: LACTULOSE 20Gm/30ML SOLN PO ONE (16:47)
[2024-07-01] MEDS: MANNITOL FTV 25% 12.5 GM/50 ML 50 ML IV ONE (16:53)
[2024-07-01] MEDS: buPROPion HCL 75 MG TAB PO SCH (19:27)
[2024-07-01] MEDS: LACTULOSE 20Gm/30ML SOLN PO SCH (22:00)
[2024-07-01] MEDS: QUEtiapine FUMARATE 100 MG TAB PO SCH (22:13)
[2024-07-01] MEDS: lamoTRIgine 100 MG TAB PO SCH (22:13)
[2024-07-02 01:00] VITALS: BP 112/52; PULSE 73; RESP 19; TEMP 97.3; O2SAT 96
[2024-07-02 05:00] VITALS: BP 113/66; PULSE 63; RESP 19; TEMP 97.3; O2SAT 95
[2024-07-02 07:41] LABS: Basophils # (auto) 0 10 ^3/uL (0-0.2); Basophils % (auto) 0.4 % (0.0-2.0); Eosinophils # (auto) 0.4 10 ^3/uL (0-0.8); Eosinophils % (auto) 3.8 % (0.0-7.0); Hematocrit 29.2 % (36.0-46.0); Lymphocytes # (auto) 1.7 10 ^3/uL (0.4-5.4); Lymphocytes % (auto) 17.8 % (10.0-50.0); Mean Corpuscular Hemoglobin 27.9 pg (28.0-32.0); Mean Corpuscular Hgb Conc. 34.2 g/dL (32.0-36.0); Mean Corpuscular Volume 81.3 fL (80.0-100.0); Monocytes # (auto) 0.9 10 ^3/uL (0-1.3); Monocytes % (auto) 9.7 % (0.0-12.0); Neutrophils # (auto) 6.7 10 ^3/uL (1.6-8.6); Neutrophils % (auto) 68.3 % (37.0-80.0); Platelet Count (auto) 287 10^3/uL (140-450); Red Blood Cells 3.59 10^6/uL (4.0-5.20); Red Cell Distribution Width 14.7 % (11.8-14.3); White Blood Cell 9.8 10^3/uL (4.4-10.8)
[2024-07-02 07:53] LABS: Chloride 106 mmol/L (98-107); Potassium 4.3 mmol/L (3.5-5.1); Sodium 137 mmol/L (136-145)
[2024-07-02 07:54] LABS: Anion Gap 8 (5-15); Carbon Dioxide 23 mmol/L (20-31)
[2024-07-02 07:55] LABS: Calcium 8.9 mg/dL (8.7-10.4)
[2024-07-02 08:00] LABS: BUN/Creatinine Ratio 13.2 (10.0-20.0)
[2024-07-02 08:05] LABS: Blood Urea Nitrogen 24 mg/dL (9-23); Glucose 147 mg/dL (74-106)
[2024-07-02 08:43] VITALS: BP 105/59; PULSE 66; RESP 15; TEMP 98.3; O2SAT 100
--- NOTE | 2024-07-02 09:23 | DVH ---
Date: 07/02/2024 08:29 AM Examination: XY KUB ABDOMEN SINGLE VIEW History: abd pain Comparison: None TECHNIQUE: Frontal views of the abdomen was obtained. FINDINGS: Bowel gas pattern is unremarkable. Moderate stool burden. The lung bases are unremarkable. No acute osseous abnormality identified. IMPRESSION: Nonobstructive bowel gas pattern. Moderate stool burden.
[2024-07-02] MEDS: FLUoxetine HCL 20 MG CAP PO SCH (10:00)
[2024-07-02 13:00] VITALS: BP 141/74; PULSE 78; RESP 16; TEMP 98.1; O2SAT 96
[2024-07-02] MEDS ORDERED: DEXTROSE (50%) 50ML SYRG IV PRN (13:15)
[2024-07-02] MEDS ORDERED: METOCLOPRAMIDE HCL 5MG/ml INJ 2ml VIAL IV PRN (13:15)
[2024-07-02] MEDS ORDERED: MORPHINE SULFATE INJ 2 MG/ml SYRG IV PRN (13:15)
--- NOTE | 2024-07-02 13:16 | DVHPNRES ---
Progress Note Date Seen: Jul 02, 2024 Resident Creating Document: BRENT GILMAN RESIDENT Has the PT tested + for MRSA If YES, has PT been informed?: No Medical Necessity Reason Pt with a Central, PICC or Fol: No Subjective Patient reports: No new complaints Other Systems: Patient seen and examined by myself today on rounds with the medicine resident, I agree with his assessment and plan Objective vital signs Vital Sign Date Time Temp Pulse Resp B/P (MAP) Pulse Ox O2 Delivery O2 Flow Rate FiO2 07/02/24 08:43 98.3 66 15 105/59 (74) 100 98.3 07/02/24 08:10 Room Air* 0 21 Total Intake and Output 07/01/24 07/01/24 07/02/24 15:00 23:00 07:00 Intake Total 100 ml 350 ml 300 ml Balance 100 ml 350 ml 300 ml medications Current Medications Medications Dose Ordered Sig/Ronn Route Start Time Stop Time Status Last Admin Dose Admin Piperacillin Sod/ Tazobactam Sod 100 ml @ 25 mls/hr Q8HR IV 06/29/24 22:00 07/02/24 05:05 25 MLS/HR Aspirin 81 mg DAILY PO 06/30/24 10:00 07/02/24 08:10 81 MG Metoprolol Tartrate 50 mg BID PO 06/29/24 22:00 07/01/24 22:15 50 MG Diagnostic Test (Pha) 1 strip IQ4HR 06/30/24 00:00 07/02/24 11:24 1 STRIP Insulin Human Regular IQ4HR SC 06/30/24 00:00 07/02/24 08:21 2 UNITS Dextrose 50 ml UD PRN IV 06/29/24 21:45 Sodium Chloride 1,000 ml @ 60 mls/hr [id number] IV 06/29/24 21:45 06/29/24 23:06 60 MLS/HR Acetaminophen/ Hydrocodone Bitart 1 tab Q4HP PRN PO 06/29/24 21:45 06/30/24 22:19 1 TAB Ondansetron HCl 4 mg Q4HP PRN IV 06/29/24 21:45 07/02/24 08:22 4 MG Docusate Sodium 100 mg BIDPRN PRN PO 06/29/24 21:45 Acetaminophen 650 mg Q6HP PRN PO 06/29/24 21:45 Nitroglycerin 0.4 mg Q5MINP PRN SL 06/29/24 21:45 Morphine Sulfate 2 mg Q30M PRN IV 06/29/24 21:45 06/30/24 01:21 2 MG Famotidine 20 mg Q12HR IV 06/29/24 22:00 07/02/24 08:08 20 MG Atorvastatin Calcium 10 mg HS PO 06/29/24 22:00 07/01/24 22:12 10 MG Morphine Sulfate 2 mg Q4HPRN PRN IV 06/29/24 22:45 07/01/24 23:11 2 MG Quetiapine Fumarate 400 mg BID PO 07/01/24 22:00 07/01/24 22:13 400 MG Bupropion HCl 150 mg BID@07,19 PO 07/01/24 19:00 07/02/24 05:04 150 MG Fluoxetine HCl 40 mg DAILY PO 07/02/24 10:00 Lamotrigine 200 mg Q12HR PO 07/01/24 22:00 07/01/24 22:13 200 MG Divalproex Sodium 500 mg DAILY PO 07/02/24 10:00 Lactulose 30 ml BID PO 07/01/24 22:00 07/02/24 08:14 30 ML Hydralazine HCl 10 mg Q6HP PRN IV 07/01/24 15:30 Examination GENERAL:Normal, HEENT:Normal, NECK:Normal, LUNGS:Normal, CVS:Normal, ABDOMEN:Normal, MSK:Abnormal, SKIN:Normal, NEURO:Normal, :Normal laboratory and microbiology Laboratory Tests 07/02/24 07:19 Test 07/02/24 07:19 Range/Units Serum Glucose 147 H 74-106 mg/dL Microbiology Date/Time Source Procedure Growth Status 06/29/24 18:01 Blood Blood Culture - Preliminary NO GROWTH AFTER 48 HOURS OF INCUBATION. Resulted Labs and/or images reviewed: Labs reviewed by me, Image(s) reviewed by me Problem List/Assessment/Plan Problem List/Assessment/Plan Ms. Solano, 59-year-old female with a history of morbid obesity, stage IIIb chronic kidney disease, hypertension, cerebrovascular accident (CVA), and diabetes presented with acute kidney injury and lower abdominal pain radiating to the back for the past day, accompanied by dysuria. She denies any other complaints, NSAID use, or supplement intake. On arrival, her systolic blood pressure was greater than 190. Nephrology Consult/ Progress Note: Assessment: #Acute kidney injury due to VMN, hemodynamic mediated etiology in the setting of hypertensive emergency #Likely Chronic kidney disease IIIb Metabolic acidosis # Diabetes type II #Hypertension, uncontrolled #Hypertensive urgency #Obesity grade II #Nonobstructive kidney stone [address] scan #hydronephrosis ruled out. Findings: #GFR: 36>31 #Creatinine: 1.65>1.61>1.82 #I&O: not well documented #FeNa: 0.8% prerenal. #BUN: Cr: 26.7 prerenal azotemia #TSH 1.21 wnl #Urine protein 221.7 #BUN: Cr. 13.19 #Urine protein: urine creatinine ratio: 3084 mg/day Plan: #Strict I&O and check Daily weight.Avoid Nephrotoxics ,Avoid hyper/hypo tension ,Fluid Restriction. #Daily BMP, urine culture, strain urine, stone workup. #Blood pressure control target BP 130/80 or below in adult diabetic as per AHA/ACC guidelines. #Close follow up with nephrology outpatient valdez, follow Dr. Becker, 2 weeks and follow up with labs. #Rest of the management as per primary team. Thank you for the opportunity to follow up on your patient. In case of any question feel free to reach out to the Nephrology team. Discussed with Nephrology attending Dr. Becker. Plan discussed with: Patient, Other (RN) Dietary Evaluation Review Comments: 1) Advance diet as medically feasible 2) Consider [facility] 45gm + renal specific 60gm protein diet as goal diet 3) Refer [employer] Supervisor on discharge 4) Continue current plan of care Expected Outcomes/Goals: Pt will meet >75% estimated needs Fu 3-5 days Labs/Diagnostic Data Laboratory Tests Test 07/02/24 11:20 07/02/24 08:05 07/02/24 07:19 07/01/24 23:20 Range/Units POC Glucose 127 H 138 H 125 H 70-106 mg/dl White Blood Count 9.8 # 4.4-10.8 10^3/uL Red Blood Count 3.59 L 4.0-5.20 10^6/uL Hemoglobin 10.0 L 12.2-16.2 g/dL Hematocrit 29.2 #L 36.0-46.0 % Mean Corpuscular Volume 81.3 # 80.0-100.0 fL Mean Corpuscular Hemoglobin 27.9 L 28.0-32.0 pg Mean Corpuscular Hemoglobin Concent 34.2 32.0-36.0 g/dL Red Cell Distribution Width 14.7 H 11.8-14.3 % Platelet Count 287 140-450 10^3/uL Mean Platelet Volume 7.8 6.9-10.8 fL Neutrophils (%) (Auto) 68.3 37.0-80.0 % Lymphocytes (%) (Auto) 17.8 10.0-50.0 % Monocytes (%) (Auto) 9.7 0.0-12.0 % Eosinophils (%) (Auto) 3.8 0.0-7.0 % Basophils (%) (Auto) 0.4 0.0-2.0 % Neutrophils # (Auto) 6.7 1.6-8.6 10 ^3/uL Lymphocytes # (Auto) 1.7 0.4-5.4 10 ^3/uL Monocytes # (Auto) 0.9 0-1.3 10 ^3/uL Eosinophils # (Auto) 0.4 0-0.8 10 ^3/uL Basophils # (Auto) 0 0-0.2 10 ^3/uL Nucleated Red Blood Cells 0.0 % Sodium Level 137 136-145 mmol/L Potassium Level 4.3 3.5-5.1 mmol/L Chloride Level 106 98-107 mmol/L Carbon Dioxide Level 23 20-31 mmol/L Anion Gap 8 5-15 Blood Urea Nitrogen 24 H 9-23 mg/dL Creatinine 1.82 H 0.550-1.02 mg/dL Glomerular Filtration Rate Calc 31 >90 mL/min BUN/Creatinine Ratio 13.2 10.0-20.0 Serum Glucose 147 H 74-106 mg/dL Hemoglobin A1c 8.8 H <5.7 % A1C Calcium Level 8.9 8.7-10.4 mg/dL Thyroid Stimulating Hormone (TSH) 1.21 0.55-4.78 uIU/mL Test 07/01/24 21:39 Range/Units POC Glucose 154 H 70-106 mg/dl Microbiology Date/Time Source Procedure Growth Status 06/29/24 18:01 Blood Blood Culture - Preliminary NO GROWTH AFTER 48 HOURS OF INCUBATION. Resulted vital signs Vital Sign Date Time Temp Pulse Resp B/P (MAP) Pulse Ox O2 Delivery O2 Flow Rate FiO2 07/02/24 08:43 98.3 66 15 105/59 (74) 100 98.3 07/02/24 08:10 Room Air* 0 21 Total Intake and Output 07/01/24 07/01/24 07/02/24 15:00 23:00 07:00 Intake Total 100 ml 350 ml 300 ml Balance 100 ml 350 ml 300 ml medications Current Medications Medications Dose Ordered Sig/Ronn Route Start Time Stop Time Status Last Admin Dose Admin Piperacillin Sod/ Tazobactam Sod 100 ml @ 25 mls/hr Q8HR IV 06/29/24 22:00 07/02/24 05:05 25 MLS/HR Aspirin 81 mg DAILY PO 06/30/24 10:00 07/02/24 08:10 81 MG Metoprolol Tartrate 50 mg BID PO 06/29/24 22:00 07/01/24 22:15 50 MG Diagnostic Test (Pha) 1 strip IQ4HR 06/30/24 00:00 07/02/24 11:24 1 STRIP Insulin Human Regular IQ4HR SC 06/30/24 00:00 07/02/24 08:21 2 UNITS Dextrose 50 ml UD PRN IV 06/29/24 21:45 Sodium Chloride 1,000 ml @ 60 mls/hr [id number] IV 06/29/24 21:45 06/29/24 23:06 60 MLS/HR Acetaminophen/ Hydrocodone Bitart 1 tab Q4HP PRN PO 06/29/24 21:45 06/30/24 22:19 1 TAB Ondansetron HCl 4 mg Q4HP PRN IV 06/29/24 21:45 07/02/24 08:22 4 MG Docusate Sodium 100 mg BIDPRN PRN PO 06/29/24 21:45 Acetaminophen 650 mg Q6HP PRN PO 06/29/24 21:45 Nitroglycerin 0.4 mg Q5MINP PRN SL 06/29/24 21:45 Morphine Sulfate 2 mg Q30M PRN IV 06/29/24 21:45 06/30/24 01:21 2 MG Famotidine 20 mg Q12HR IV 06/29/24 22:00 07/02/24 08:08 20 MG Atorvastatin Calcium 10 mg HS PO 06/29/24 22:00 07/01/24 22:12 10 MG Morphine Sulfate 2 mg Q4HPRN PRN IV 06/29/24 22:45 07/01/24 23:11 2 MG Quetiapine Fumarate 400 mg BID PO 07/01/24 22:00 07/01/24 22:13 400 MG Bupropion HCl 150 mg BID@07,19 PO 07/01/24 19:00 07/02/24 05:04 150 MG Fluoxetine HCl 40 mg DAILY PO 07/02/24 10:00 Lamotrigine 200 mg Q12HR PO 07/01/24 22:00 07/01/24 22:13 200 MG Divalproex Sodium 500 mg DAILY PO 07/02/24 10:00 Lactulose 30 ml BID PO 07/01/24 22:00 07/02/24 08:14 30 ML Hydralazine HCl 10 mg Q6HP PRN IV 07/01/24 15:30 laboratory and microbiology Laboratory Tests 07/02/24 07:19 Test 07/02/24 07:19 Range/Units Serum Glucose 147 H 74-106 mg/dL BRENT GILMAN Jul 02, 2024 13:16 STEFFANY BECKER MD Jul 02, 2024 16:34
--- NOTE | 2024-07-02 13:22 | DVHPN2 ---
Progress Note Date Seen: Jul 02, 2024 Medical Necessity Reason Pt with a Central, PICC or Fol: No Subjective Patient reports: No new complaints Review of Systems: HEENT:Normal, CVS:Normal, RESPIRATORY:Normal, GI:Normal, :Normal, MSK:Normal, NEURO:Normal Objective vital signs Vital Sign Date Time Temp Pulse Resp B/P (MAP) Pulse Ox O2 Delivery O2 Flow Rate FiO2 07/02/24 08:43 98.3 66 15 105/59 (74) 100 98.3 07/02/24 08:10 Room Air* 0 21 Total Intake and Output 07/01/24 07/01/24 07/02/24 15:00 23:00 07:00 Intake Total 100 ml 350 ml 300 ml Balance 100 ml 350 ml 300 ml medications Current Medications Medications Dose Ordered Sig/Ronn Route Start Time Stop Time Status Last Admin Dose Admin Piperacillin Sod/ Tazobactam Sod 100 ml @ 25 mls/hr Q8HR IV 06/29/24 22:00 07/02/24 05:05 25 MLS/HR Aspirin 81 mg DAILY PO 06/30/24 10:00 07/02/24 08:10 81 MG Metoprolol Tartrate 50 mg BID PO 06/29/24 22:00 07/01/24 22:15 50 MG Diagnostic Test (Pha) 1 strip IQ4HR 06/30/24 00:00 07/02/24 11:24 1 STRIP Insulin Human Regular IQ4HR SC 06/30/24 00:00 07/02/24 08:21 2 UNITS Dextrose 50 ml UD PRN IV 06/29/24 21:45 Sodium Chloride 1,000 ml @ 60 mls/hr [id number] IV 06/29/24 21:45 06/29/24 23:06 60 MLS/HR Acetaminophen/ Hydrocodone Bitart 1 tab Q4HP PRN PO 06/29/24 21:45 06/30/24 22:19 1 TAB Ondansetron HCl 4 mg Q4HP PRN IV 06/29/24 21:45 07/02/24 08:22 4 MG Docusate Sodium 100 mg BIDPRN PRN PO 06/29/24 21:45 Acetaminophen 650 mg Q6HP PRN PO 06/29/24 21:45 Nitroglycerin 0.4 mg Q5MINP PRN SL 06/29/24 21:45 Morphine Sulfate 2 mg Q30M PRN IV 06/29/24 21:45 06/30/24 01:21 2 MG Famotidine 20 mg Q12HR IV 06/29/24 22:00 07/02/24 08:08 20 MG Atorvastatin Calcium 10 mg HS PO 06/29/24 22:00 07/01/24 22:12 10 MG Morphine Sulfate 2 mg Q4HPRN PRN IV 06/29/24 22:45 07/01/24 23:11 2 MG Quetiapine Fumarate 400 mg BID PO 07/01/24 22:00 07/01/24 22:13 400 MG Bupropion HCl 150 mg BID@07,19 PO 07/01/24 19:00 07/02/24 05:04 150 MG Fluoxetine HCl 40 mg DAILY PO 07/02/24 10:00 Lamotrigine 200 mg Q12HR PO 07/01/24 22:00 07/01/24 22:13 200 MG Divalproex Sodium 500 mg DAILY PO 07/02/24 10:00 Lactulose 30 ml BID PO 07/01/24 22:00 07/02/24 08:14 30 ML Hydralazine HCl 10 mg Q6HP PRN IV 07/01/24 15:30 Examination: GENERAL:Normal, HEENT:Normal, NECK:Normal, LUNGS:Normal, CVS:Normal, ABDOMEN:Normal, MSK:Normal, SKIN:Normal, NEURO:Normal, :Normal laboratory and microbiology Laboratory Tests 07/02/24 07:19 Test 07/02/24 07:19 Range/Units Serum Glucose 147 H 74-106 mg/dL Microbiology Date/Time Source Procedure Growth Status 06/29/24 18:01 Blood Blood Culture - Preliminary NO GROWTH AFTER 48 HOURS OF INCUBATION. Resulted Problem List/Assessment/Plan Problem List/Assessment/Plan #1 abd pain ?right renal stone: mannitol #2 fecal impaction: bowel regimen #3 bipolar disorder: resume home meds #4 dm: ssi #5 htn ?urgency: cont meds #6 ckd stage 3 #7 obesity #8 hyperlipidemia #9 ?sirs ?sepsis:dc iv zosyn advance care planning- full code- time spent 19mins Plan discussed with: Patient My Orders My Orders Orders - CORRY CAMPOS MD Procedure Category Date Status Time Quetiapine Fumarate PHA 07/01/24 In Process Tablet (Seroquel Tab 22:00 Bupropion Tablet PHA 07/01/24 In Process (Wellbutrin Tablet) 19:00 Fluoxetine Capsule PHA 07/02/24 In Process (Prozac Capsule) 10:00 Lamotrigine Tablet PHA 07/01/24 In Process (Lamictal Tablet) 22:[address] Tablet PHA 07/02/24 In Process (Depakote "Dr" Tabl 10:00 Lactulose Oral PHA 07/01/24 In Process 22:00 Full Liq Diet DIET 07/01/24 Transmitted Dinner Kub Abdomen Single XY 07/02/24 Resulted View 06:00 Hydralazine Injection PHA 07/01/24 In Process (Apresoline Inject 15:30 Discontinue Tele MADHU 07/01/24 In Process 15:19 Transfer Orders XFER 07/01/24 Transmitted 15:19 Dietary Evaluation Review Comments: 1) Advance diet as medically feasible 2) Consider CCHO 45gm + renal specific 60gm protein diet as goal diet 3) Refer Verifier on discharge 4) Continue current plan of care Expected Outcomes/Goals: Pt will meet >75% estimated needs Fu 3-5 days Date of Service: Jul 02, 2024 Billing Provider: CORRY CAMPOS MD Common Visit Codes: [id number] INP/OBS CARE(HIGH) CORRY CAMPOS MD Jul 02, 2024 13:22
[2024-07-02] MEDS: METOCLOPRAMIDE HCL 5MG/ml INJ 2ml VIAL IV ONE (14:09)
[2024-07-02] MEDS: LACTULOSE 20Gm/30ML SOLN PO ONE (14:13)
[2024-07-02] MEDS: POLYETHYLENE GLYCOL 17 GM PWDR PO ONE (14:14)
[2024-07-02 17:00] VITALS: BP 135/83; PULSE 77; RESP 17; TEMP 98; O2SAT 97
[2024-07-02] MEDS: ACCU-CHEK COMFORT CURVE STRIP VI SCH (17:20)
[2024-07-02] MEDS: QUEtiapine FUMARATE 100 MG TAB PO SCH (17:20)
[2024-07-02] MEDS: InsuLIN REG 1unit/0.01ml Soln (100units/ml) SC SCH ×2 (17:23→22:06)
[2024-07-02 21:36] VITALS: BP 111/78; PULSE 85; RESP 16; TEMP 98.4; O2SAT 96
[2024-07-03] MEDS: TEMAZEPAM 15 MG CAP PO ONE (00:44)
[2024-07-03 01:00] VITALS: BP 132/86; PULSE 73; RESP 16; TEMP 97.8; O2SAT 94
[2024-07-03 05:00] VITALS: BP 130/85; PULSE 77; RESP 16; TEMP 97.9; O2SAT 97
[2024-07-03 07:30] LABS: Basophils # (auto) 0.1 10 ^3/uL (0-0.2); Basophils % (auto) 0.8 % (0.0-2.0); Eosinophils # (auto) 0.4 10 ^3/uL (0-0.8); Eosinophils % (auto) 5.7 % (0.0-7.0); Hematocrit 29.4 % (36.0-46.0); Hemoglobin 9.8 g/dL (12.2-16.2); Lymphocytes # (auto) 1.1 10 ^3/uL (0.4-5.4); Lymphocytes % (auto) 14.5 % (10.0-50.0); Mean Corpuscular Hemoglobin 27.7 pg (28.0-32.0); Mean Corpuscular Hgb Conc. 33.3 g/dL (32.0-36.0); Monocytes # (auto) 0.7 10 ^3/uL (0-1.3); Monocytes % (auto) 9.7 % (0.0-12.0); Neutrophils # (auto) 5.4 10 ^3/uL (1.6-8.6); Neutrophils % (auto) 69.3 % (37.0-80.0); Platelet Count (auto) 273 10^3/uL (140-450); Red Blood Cells 3.55 10^6/uL (4.0-5.20); Red Cell Distribution Width 14.8 % (11.8-14.3); White Blood Cell 7.8 10^3/uL (4.4-10.8)
[2024-07-03 07:49] LABS: Chloride 105 mmol/L (98-107); Potassium 4.7 mmol/L (3.5-5.1); Sodium 136 mmol/L (136-145)
[2024-07-03 07:50] LABS: Anion Gap 8 (5-15); Carbon Dioxide 23 mmol/L (20-31)
[2024-07-03 07:55] LABS: BUN/Creatinine Ratio 12.4 (10.0-20.0)
[2024-07-03 08:03] LABS: Blood Urea Nitrogen 29 mg/dL (9-23); Glucose 241 mg/dL (74-106)
[2024-07-03 09:00] VITALS: BP 126/73; PULSE 78; RESP 18; TEMP 98.2; O2SAT 96
[2024-07-03] MEDS: POLYETHYLENE GLYCOL 17 GM PWDR PO SCH (10:00)
[2024-07-03] MEDS: ACETAMINOPHEN 325 MG TAB PO PRN (10:07)
--- NOTE | 2024-07-03 11:09 | DVHPNRES ---
Progress Note Date Seen: Jul 03, 2024 Resident Creating Document: BRENT GILMAN RESIDENT Has the PT tested + for MRSA If YES, has PT been informed?: No Medical Necessity Reason Pt with a Central, PICC or Fol: No Subjective Other Systems: Patient seen and examined by myself today on rounds with the medicine resident, I agree with the assessment and plan as documented in his note Objective vital signs Vital Sign Date Time Temp Pulse Resp B/P (MAP) Pulse Ox O2 Delivery O2 Flow Rate FiO2 07/03/24 10:06 78 126/73 07/03/24 09:00 98.2 18 96 98.2 07/02/24 20:00 Room Air* 0 21 Total Intake and Output 07/02/24 07/02/24 07/03/24 15:00 23:00 07:00 Intake Total 100 ml 800 ml 300 ml Balance 100 ml 800 ml 300 ml medications Current Medications Medications Dose Ordered Sig/Ronn Route Start Time Stop Time Status Last Admin Dose Admin Aspirin 81 mg DAILY PO 06/30/24 10:00 07/03/24 10:06 81 MG Metoprolol Tartrate 50 mg BID PO 06/29/24 22:00 07/03/24 10:06 50 MG Acetaminophen/ Hydrocodone Bitart 1 tab Q4HP PRN PO 06/29/24 21:45 07/03/24 06:10 1 TAB Docusate Sodium 100 mg BIDPRN PRN PO 06/29/24 21:45 Acetaminophen 650 mg Q6HP PRN PO 06/29/24 21:45 07/03/24 10:07 650 MG Nitroglycerin 0.4 mg Q5MINP PRN SL 06/29/24 21:45 Morphine Sulfate 2 mg Q30M PRN IV 06/29/24 21:45 06/30/24 01:21 2 MG Famotidine 20 mg Q12HR IV 06/29/24 22:00 07/03/24 10:05 20 MG Atorvastatin Calcium 10 mg HS PO 06/29/24 22:00 07/02/24 21:58 10 MG Bupropion HCl 150 mg BID@07,19 PO 07/01/24 19:00 07/03/24 06:10 150 MG Fluoxetine HCl 40 mg DAILY PO 07/02/24 10:00 07/03/24 10:06 40 MG Lamotrigine 200 mg Q12HR PO 07/01/24 22:00 07/03/24 10:06 200 MG Divalproex Sodium 500 mg DAILY PO 07/02/24 10:00 07/03/24 10:06 500 MG Lactulose 30 ml BID PO 07/01/24 22:00 07/02/24 08:14 30 ML Hydralazine HCl 10 mg Q6HP PRN IV 07/01/24 15:30 Morphine Sulfate 1 mg Q6HP PRN IV 07/02/24 13:15 Quetiapine Fumarate 400 mg QPM PO 07/02/24 18:00 07/02/24 17:20 400 MG Diagnostic Test (Pha) 1 strip ACHS 07/02/24 17:00 07/03/24 06:01 1 STRIP Insulin Human Regular HS SC 07/02/24 22:00 07/02/24 22:06 4 UNITS Insulin Human Regular AC SC 07/02/24 17:00 07/03/24 06:01 9 UNITS Dextrose 50 ml UD PRN IV 07/02/24 13:15 Polyethylene Glycol 17 gm DAILY PO 07/03/24 10:00 Metoclopramide HCl 5 mg Q6HPRN PRN IV 07/02/24 13:15 Examination GENERAL:Normal, HEENT:Normal, NECK:Normal, LUNGS:Normal, CVS:Normal, ABDOMEN:Normal, MSK:Abnormal, SKIN:Normal, NEURO:Normal, :Normal laboratory and microbiology Laboratory Tests 07/03/24 06:41 Test 07/03/24 06:41 Range/Units Serum Glucose 241 H 74-106 mg/dL Microbiology Date/Time Source Procedure Growth Status 06/29/24 18:01 Blood Blood Culture - Preliminary NO GROWTH AFTER 72 HOURS OF INCUBATION. Resulted Labs and/or images reviewed: Labs reviewed by me, Image(s) reviewed by me Problem List/Assessment/Plan Problem List/Assessment/Plan Ms. Solano, 59-year-old female with a history of morbid obesity, stage IIIb chronic kidney disease, hypertension, cerebrovascular accident (CVA), and diabetes presented with acute kidney injury and lower abdominal pain radiating to the back for the past day, accompanied by dysuria. She denies any other complaints, NSAID use, or supplement intake. On arrival, her systolic blood pressure was greater than 190> now improved BP. Nephrology Consult/ Progress Note: Assessment: #Acute kidney injury due to VMN, hemodynamic mediated etiology in the setting of hypertensive emergency #Likely Chronic kidney disease IIIb Metabolic acidosis # Diabetes type II #Hypertension, uncontrolled #Hypertensive urgency #Obesity grade II #Nonobstructive kidney stone [address] scan #hydronephrosis ruled out. Findings: #GFR: 36>31> 23 #Creatinine: 1.65>1.61>1.82>2.33 worsening renal function. #I&O: not well documented #FeNa: 0.8% prerenal. #BUN: Cr: 26.7 prerenal azotemia #TSH 1.21 wnl #Urine protein 221.7 #BUN: Cr. 13.19 #Urine protein: urine creatinine ratio: 3084 mg/day Plan: #500 cc of LR fluid challenge, BP well controlled now. Recheck BMP. #Strict I&O and check Daily weight.Avoid Nephrotoxics ,Avoid hyper/hypo tension ,Fluid Restriction. #Daily BMP, urine culture, strain urine, stone workup. #Blood pressure control target BP 130/80 or below in adult diabetic as per AHA/ACC guidelines. #Close follow up with nephrology outpatient valdez, follow Dr. Becker, 2 weeks and follow up with labs. #Rest of the management as per primary team. Thank you for the opportunity to follow up on your patient. In case of any question feel free to reach out to the Nephrology team. Discussed with Nephrology attending Dr. Becker. Plan discussed with: Patient, Other (RN) Dietary Evaluation Review Comments: 1) Advance diet as medically feasible 2) Consider CCHO 45gm + renal specific 60gm protein diet as goal diet 3) Refer [employer] Wireman on discharge 4) Continue current plan of care Expected Outcomes/Goals: Pt will meet >75% estimated needs Fu 3-5 days BRENT GILMAN Jul 03, 2024 11:09 STEFFANY BECKER MD Jul 03, 2024 12:54
[2024-07-03] MEDS: LACTATED RINGER'S 500 ML IV ONE (12:21)
[2024-07-03 13:00] VITALS: PULSE 83; RESP 21; TEMP 97.8; O2SAT 96
--- NOTE | 2024-07-03 14:06 | DVHDS2 ---
Discharge Summary Date of Admission Jun 29, 2024 at 21:41 Date of Discharge: Jul 03, 2024 Labs/Diagnostic Data: Laboratory Results Test 07/03/24 11:28 07/03/24 06:41 07/02/24 07:19 07/01/24 03:05 POC Glucose 109 mg/dl (70-106) White Blood Count 7.8 10^3/uL (4.4-10.8) Red Blood Count 3.55 10^6/uL (4.0-5.20) Hemoglobin 9.8 g/dL (12.2-16.2) Hematocrit 29.4 % (36.0-46.0) Mean Corpuscular Volume 83.0 fL (80.0-100.0) Mean Corpuscular Hemoglobin 27.7 pg (28.0-32.0) Mean Corpuscular Hemoglobin Concent 33.3 g/dL (32.0-36.0) Red Cell Distribution Width 14.8 % (11.8-14.3) Platelet Count 273 10^3/uL (140-450) Mean Platelet Volume 8.3 fL (6.9-10.8) Neutrophils (%) (Auto) 69.3 % (37.0-80.0) Lymphocytes (%) (Auto) 14.5 % (10.0-50.0) Monocytes (%) (Auto) 9.7 % (0.0-12.0) Eosinophils (%) (Auto) 5.7 % (0.0-7.0) Basophils (%) (Auto) 0.8 % (0.0-2.0) Neutrophils # (Auto) 5.4 10 ^3/uL (1.6-8.6) Lymphocytes # (Auto) 1.1 10 ^3/uL (0.4-5.4) Monocytes # (Auto) 0.7 10 ^3/uL (0-1.3) Eosinophils # (Auto) 0.4 10 ^3/uL (0-0.8) Basophils # (Auto) 0.1 10 ^3/uL (0-0.2) Nucleated Red Blood Cells 0.0 % Sodium Level 136 mmol/L (136-145) Potassium Level 4.7 mmol/L (3.5-5.1) Chloride Level 105 mmol/L (98-107) Carbon Dioxide Level 23 mmol/L (20-31) Anion Gap 8 (5-15) Blood Urea Nitrogen 29 mg/dL (9-23) Creatinine 2.33 mg/dL (0.550-1.02) Glomerular Filtration Rate Calc 23 mL/min (>90) BUN/Creatinine Ratio 12.4 (10.0-20.0) Serum Glucose 241 mg/dL (74-106) Calcium Level 9.0 mg/dL (8.7-10.4) Hemoglobin A1c 8.8 % A1C (<5.7) Thyroid Stimulating Hormone (TSH) 1.21 uIU/mL (0.55-4.78) Urine Creatinine 71.88 mg/dL (30.0-125.0) Urine Sodium 45 mmol/L (40-220) Urine Total Protein 221.7 mg/dL (1-14) Test 06/30/24 06:17 06/29/24 19:14 06/29/24 17:00 06/29/24 16:14 Total Bilirubin 0.4 mg/dL (0.2-1.0) Aspartate Amino Transferase (AST) 17 U/L (13-40) Alanine Aminotransferase (ALT) 13 U/L (7-40) Alkaline Phosphatase 192 U/L (46-116) Total Protein 7.3 g/dL (5.7-8.2) Albumin 4.4 g/dL (3.2-4.8) Troponin I High Sensitivity 55 ng/L (</=34) Urine Color Colorless (Yellow) Urine Clarity Clear (Clear) Urine pH 6.0 (5.0-9.0) Urine Specific [place] 1.010 (1.001-1.035) Urine Protein 2+ (Negative) Urine Ketones Negative (Negative) Urine Blood 1+ /uL (Negative) Urine Nitrite Negative (Negative) Urine Bilirubin Negative (Negative) Urine Urobilinogen Normal mg/dL (Negative) Urine Leukocyte Esterase Negative /uL (Negative) Urine RBC 3 /hpf (0 - 4) Urine Microscopic WBC 1 /HPF (0-5) Urine Squamous Epithelial Cells Few /hpf (<5) Urine Bacteria Few /hpf (None Seen) Urine Glucose 4+ mg/dL (Normal) Lactic Acid Level 1.9 mmol/L (0.4-2.0) Lipase 68 U/L (12-53) Other Laboratory Tests 07/03/24 06:41 Brief Hx & Hospital Course: SEE DICTATED NOTE Condition at Discharge: Fair Final Diagnosis/Problems List ABD PAIN Discharge Disposition: Home Discharge Instruct/Medications Diet: Cardiac 2g Na,low cholest Activity: No Restrictions, As Tolerated Follow Up/Referral: FU WITH PCP/NEPHROLOGY Medications: RESUME HOME MEDS Discharge Statement: "Patient was advised to return to the ER or call 911 if any headaches, dizziness, shortness of breath, chest pain, abdominal pain, bleeding, fevers, or worsening of medical condition. Patient was counseled about treatment plan, medications, possible side effects, patientverbalized understanding. All questions were answered to the best of my ability. This discharge took greater then 30 minutes in planning, reviewing documentation, counseling the patient, and discussing with other team members." ASSESSMENT ASSESSMENT Assessment ABD PAIN Date of Service: Jul 03, 2024 Billing Provider: CORRY CAMPOS MD Common Visit Codes: 80815-EBD/OBS DISCH DAY >30min CORRY CAMPOS MD Jul 03, 2024 14:06
--- NOTE | 2024-07-03 14:40 | DVHDS ---
DATE OF DISCHARGE: 07/03/2024 HISTORY OF PRESENT ILLNESS: The patient is a 59-year-old lady who was admitted with complaints of abdominal pain and has previous history of diabetes, hypertension, bipolar disorder, chronic kidney disease, depression. HOSPITAL COURSE: The patient had a CT of abdomen and pelvis that showed moderate to large stool burden along with a possible 2 mm nonobstructing distal left ureteral calculus. The patient had a creatinine between 1.8 to 2.3. The patient had an elevated white count of 15,000 that improved to 7000 at time of discharge. The patient was seen in Nephrology consult by Dr. Becker. The patient since had a bowel movement with improved abdominal pain. She will be discharged home to resume her home medications as well as to follow up with her primary care and Nephrology regarding monitoring her kidney function. FINAL DIAGNOSES: Therefore, * Abdominal pain, likely due to fecal impaction. * Questionable right renal stone. * Bipolar disorder. * Diabetes mellitus. * Hypertension, questionable urgency. * Chronic kidney disease, stage III. * Obesity. * Hyperlipidemia. * Questionable systemic inflammatory response syndrome. Time spent in discharge planning and review of plan with the patient and nursing was 38 minutes. MD YOBANI Avalos/JERAMY TID: [id number] RECEIPT: [id number]
[2024-07-03 15:56] VITALS: BP 126/73; PULSE 83; RESP 21; TEMP 97.8; O2SAT 96
== END 2024-07-03 16:38 | disposition home or self-care (01) | DRG 247 ==
LOC: ER 15:41 → EDBD 15:41 → OVERFLOW 21:41 → TELE-WESTW 23:26 → WEST WING 07-01 23:36
PROVIDERS: ADMIT Internal Medicine; ATTEND Internal Medicine
DX: K56.41 Fecal impaction (principal); N17.0 Acute kidney failure with tubular necrosis; R65.11 Systemic inflammatory response syndrome (SIRS) of non-infectious origin with acute organ dysfunction; I21.A1 Myocardial infarction type 2; E87.20 Acidosis, unspecified; R65.10 Systemic inflammatory response syndrome (SIRS) of non-infectious origin without acute organ dysfunction; E11.22 Type 2 diabetes mellitus with diabetic chronic kidney disease; D64.9 Anemia, unspecified; E11.65 Type 2 diabetes mellitus with hyperglycemia; N20.2 Calculus of kidney with calculus of ureter; N18.32 Chronic kidney disease, stage 3b; I16.0 Hypertensive urgency; J45.909 Unspecified asthma, uncomplicated; F31.9 Bipolar disorder, unspecified; I12.9 Hypertensive chronic kidney disease with stage 1 through stage 4 chronic kidney disease, or unspecified chronic kidney disease; R79.89 Other specified abnormal findings of blood chemistry; E66.01 Morbid (severe) obesity due to excess calories; E78.5 Hyperlipidemia, unspecified; Z90.49 Acquired absence of other specified parts of digestive tract; Z98.891 History of uterine scar from previous surgery; Z86.73 Personal history of transient ischemic attack (TIA), and cerebral infarction without residual deficits; Z79.82 Long term (current) use of aspirin; Z79.891 Long term (current) use of opiate analgesic; Z79.899 Other long term (current) drug therapy; Z79.1 Long term (current) use of non-steroidal anti-inflammatories (NSAID); Z82.49 Family history of ischemic heart disease and other diseases of the circulatory system; Z83.3 Family history of diabetes mellitus; Z79.4 Long term (current) use of insulin; Z68.41 Body mass index [BMI] 40.0-44.9, adult
CPT/HCPCS: 36415; 71045; 74018; 74176; 80048; 80053; 81001; 82570; 82962; 83036; 83605; 83690; 84156; 84300; 84443; 84484; 85025; 87040; 93005; 96365; 96375; 99291; G0378; J1815; J2405; J2543; J3490

== ENCOUNTER 2024-11-28 16:01 | Inpatient (IN) | payer MEDICAID ==
[~2024-11-28] VITALS: Ht 154.9 cm; Wt 87.0 kg
--- NOTE | 2024-11-28 16:36 | ED.PDOC ---
HPI Comments 59 y/o obese F, with PMHx of HTN, DM II, HLD, anemia, and chronic back pain presents to the ED for CC of high blood pressure. Patient states, she was at pain management doctor when she was relayed to the ED for a further evolution d/t hypertensive blood pressure reading. Upon arrival to the ED, patient's blood pressure read at 220/119 mmHg. Patient complains of current dizziness. Patient denies chest pain, shortness of breath, dizziness, nausea, or vomiting. No other symptoms or modifying factors present at this time. Chief Complaint: High Blood Pressure Time Seen by MD: 16:15 Primary Care Provider: > Reviewed Notes: Nurses Notes, Medications, Allergies Allergies: Coded Allergies: NO KNOWN ALLERGIES (Unverified , 12/31/15) Home Meds Active Scripts Hydrocodone-Acetaminophen (Hydrocodone Bitartrate/AC 5-325 mg) 1 Tab Tab, 1 TAB PO Q8HP PRN for 7 Days, #21 TAB Prov:PAYAM PEREZ MD 01/21/24 Nifedipine (Nifedipine Er) 30 Mg Tab, 60 MG PO DAILY for 30 Days, #60 TAB 3 Refills Prov:DUSTIN OLIVERA DO 01/17/24 Metoprolol Tartrate (Lopressor) 25 Mg Tb, 12.5 MG PO BID for 30 Days, #30 TAB 3 Refills Prov:DUSTIN OLIVERA DO 01/17/24 Levalbuterol HCl (Levalbuterol HCl) 1.25 Mg/3 Ml Neb, 0.625 MG NEB Q6HR for 30 Days, #30 INH 3 Refills Prov:DUSTIN OLIVERA DO 01/17/24 Atorvastatin Calcium (ATORVASTATIN CALCIUM) 20 Mg Tab, 80 MG PO HS for 30 Days, #30 TAB 3 Refills Prov:CORRY CAMPOS MD 04/05/23 Aspirin (Aspirin Low Dose) 81 Mg Tab, 81 MG PO DAILY for 30 Days, #30 TAB 3 Refills Prov:CORRY CAMPOS MD 04/05/23 Pantoprazole Sodium Sesquihydr (Pantoprazole Sodium) 40 Mg Tab, 40 MG PO DAILY for 30 Days, #30 TAB 2 Refills Prov:CORRY CAMPOS MD 03/30/23 Reported Medications Cyclobenzaprine Hcl (Cyclobenzaprine Hcl) 10 Mg Tab, 10 MG PO [id number], TAB 01/13/24 Glimepiride (Glimepiride) 1 Mg Tab, 1 TAB PO DAILY 01/13/24 Fluoxetine Hcl (Fluoxetine Hcl) 40 Mg Cap, 1 CAP PO DAILY 03/26/23 Alprazolam (Alprazolam) 0.5 Mg Tab, PO 03/26/23 Lamotrigine (Lamotrigine) 200 Mg Tab, 1 TAB PO BID 03/26/23 Bupropion Hcl (Bupropion Hcl Xl) 300 Mg Tab, 1 TAB PO DAILY 03/26/23 Divalproex Sodium (Divalproex Sodium) 500 Mg Tab, 1 TAB PO DAILY 03/26/23 Quetiapine Fumerate (QUETIAPINE FUMARATE) 400 Mg Tab, 1 TAB PO BID 03/26/23 Information Source: Patient Mode of Arrival: Wheelchair Severity: Moderate Timing: Minutes Duration: Since onset Prehospital treatment: None Onset: At Rest Cardiac Risk Factors: Hyperlipidemia, HTN, Diabetes Modifying Factors: Nothing Associated Signs and Symptoms: Diaphoresis Past Medical History PAST MEDICAL HISTORY: Anemia, Asthma, Depression, High Lipids, HTN, TIA Surgical History: Appendectomy, , Tonsillectomy 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: No Pertinent 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 Family History Family History: Unknown Social History Smoker: Non-Smoker Alcohol: Denies ETOH Use Drugs: Denies Drug Use Lives In: Home Constitutional: reports: fatigue, weakness; denies: chills, diaphoresis, fever, malaise, sweats, others EENTM: denies: blurred vision, double vision, ear bleeding, ear discharge, ear drainage, ear pain, ear ringing, eye pain, eye redness, hearing loss, mouth pain, mouth swelling, nasal discharge, nose bleeding, nose congestion, nose pain, photophobia, tearing, throat pain, throat swelling, voice changes, others Respiratory: denies: cough, hemoptysis, orthopnea, SOB at rest, shortness of breath, SOB with excertion, stridor, wheezing, others Cardiovascular: denies: chest pain, dizzy spells, diaphoresis, Dyspnea on exer tion, edema, irregular heart beat, left arm pain, lightheadedness, palpitations, PND, syncope, others Gastrointestinal: denies: abdomen distended, abdominal pain, blood streaked bowels, constipated, diarrhea, dysphagia, difficulty swallowing, hematemesis, melena, nausea, poor appetite, poor fluid intake, rectal bleeding, rectal pain, vomiting, others Genitourinary: denies: abnormal vagina bleeding, burning, dyspareunia, dysuria, flank pain, frequency, hematuria, incontinence, pain, , vagina discharge, urgency, others Neurological: reports: dizziness; denies: fainting, headache, left sided numbness, left sided weakness, numbness, paresthesia, pre-existing deficit, r ight sided numbness, right sided weakness, seizure, speech problems, tingling, tremors, weakness, others Musculoskeletal: denies: back pain, gout, joint pain, joint swelling, muscle pain, muscle stiffness, neck pain, others Integumetry: denies: bruises, change in color, change in hair/nails, dryness, laceration, lesions, lumps, rash, wounds, others Allergic/Immunocompromised: denies: Difficulty Healing, Frequent Infections, Hives, Itching, others Hematologic/Lymphatic: denies: anemia, blood clots, easy bleeding, easy bruising, swollen glands, others Endocrine: denies: excessive hunger, excessive sweating, excessive thirst, excessive urination, flushing, intolerance to cold, intolerance to heat, unexplained weight gain, unexplained weight loss, others Psychiatric: denies: anxiety, bipolar disorder, depression, hopeless, panic disorder, schizophrenia, sleepless, suicidal, others All Other Systems: Reviewed and Negative Physical Exam General Appearance: Moderate Distress ([id number] distress due to anxiety related to her concerns. Patient appears to be in poor overall health.), Obese HEENT: Normal ENT Inspection, Pharynx Normal, TMs Normal Neck: Full Range of Motion, Non-Tender, Normal, Normal Inspection Respiratory: Chest Non-Tender, Lungs Clear, No Accessory Muscle Use, No Respiratory Distress, Normal Breath Sounds Cardiovascular: No Edema, No JVD, No Murmur, No Gallop, Normal Peripheral Pulses, Regular Rate/Rhythm Breast Exam: Deferred Gastrointestinal: No Organomegaly, Non Tender, No Pulsatile Mass, Normal Bowel Sounds, Soft Genitalia: Deferred Pelvic: Deferred Rectal: Deferred Extremities: Normal capillary refill, Normal range of motion Neurologic: Alert Cerebellar Function: NOT DONE Reflexes: NOT DONE Skin: Dry, Normal Color, Warm Lymphatic: No Adenopathy Was a procedure done? Was a procedure done?: No CP Differential Dx Differential Diagnosis: Other (Sepsis, electrolyte abnormality, acute coronary syndrome, hypertensive emergency) Differential Diagnosis: HTN Essential, HTN Accelerated, Medical NonCompliance X-Ray, Labs, Meds, VS Vital Signs Date Time Temp Pulse Resp B/P (MAP) Pulse Ox O2 Delivery O2 Flow Rate FiO2 11/28/24 22:53 66 11/28/24 21:30 97.2 66 12 111/66 (81) 96 97.2 11/28/24 18:40 222/107 11/28/24 18:34 98.1 80 20 222/107 (145) 96 98.1 11/28/24 18:34 Room Air* 0 21 11/28/24 16:02 98.0 77 16 220/119 97 98.0 Lab Test 11/28/24 22:56 11/28/24 19:15 11/28/24 17:27 11/28/24 16:33 Range/Units POC Glucose 282 H 70-106 mg/dl Troponin I High Sensitivity 43 *H 38 *H 41 *H </=34 ng/L White Blood Count 10.2 4.4-10.8 10^3/uL Red Blood Count 4.64 4.0-5.20 10^6/uL Hemoglobin 12.5 12.2-16.2 g/dL Hematocrit 37.9 36.0-46.0 % Mean Corpuscular Volume 81.8 80.0-100.0 fL Mean Corpuscular Hemoglobin 27.0 L 28.0-32.0 pg Mean Corpuscular Hemoglobin Concent 33.0 32.0-36.0 g/dL Red Cell Distribution Width 14.1 11.8-14.3 % Platelet Count 274 140-450 10^3/uL Mean Platelet Volume 8.3 6.9-10.8 fL Neutrophils (%) (Auto) 75.3 37.0-80.0 % Lymphocytes (%) (Auto) 13.2 10.0-50.0 % Monocytes (%) (Auto) 7.1 0.0-12.0 % Eosinophils (%) (Auto) 3.6 0.0-7.0 % Basophils (%) (Auto) 0.8 0.0-2.0 % Neutrophils # (Auto) 7.7 1.6-8.6 10 ^3/uL Lymphocytes # (Auto) 1.3 0.4-5.4 10 ^3/uL Monocytes # (Auto) 0.7 0-1.3 10 ^3/uL Eosinophils # (Auto) 0.4 0-0.8 10 ^3/uL Basophils # (Auto) 0.1 0-0.2 10 ^3/uL Nucleated Red Blood Cells 0.0 % D-Dimer, Quantitative 0.67 H 0.0-0.49 mg/L FEU Sodium Level 137 136-145 mmol/L Potassium Level 4.5 3.5-5.1 mmol/L Chloride Level 103 98-107 mmol/L Carbon Dioxide Level 26 20-31 mmol/L Anion Gap 8 5-15 Blood Urea Nitrogen 24 H 9-23 mg/dL Creatinine 1.37 H 0.550-1.02 mg/dL Glomerular Filtration Rate Calc 44 >90 mL/min BUN/Creatinine Ratio 17.5 10.0-20.0 Serum Glucose 194 H 74-106 mg/dL Calcium Level 9.3 8.7-10.4 mg/dL Current Medications Medications (Trade) Dose Ordered Sig/Ronn Route Start Time Stop Time Status Last Admin Clonidine HCl (Catapres Tablet) 0.2 mg ONCE ONCE PO 11/28/24 16:15 11/28/24 16:16 DC 11/28/24 18:40 Acetaminophen/ Hydrocodone Bitart ([place] 10/325MG Tab) 1 tab ONCE ONCE PO 11/28/24 16:15 11/28/24 16:16 DC 11/28/24 18:40 X-Ray, Labs, Meds, VS Comment All studies performed the ED were evaluated by me personally. Serum studies revealed a significant hyperglycemic state with a blood sugar over 400. Additionally, patient appears to have renal concerns that may be acute as well as elevated troponins. EKG revealed a sinus rhythm with a rate of 66. Nonspecific anterior concerns with a baseline wander in multiple leads. MT interval 150 and QT interval 434. Patient will be admitted for management of her poorly controlled diabetes and hypertensive concerns as well as a renal evaluation and cardiac evaluation. Time of 1ST Reevaluation: 00:04 Reevaluation 1ST: Improved Consultation: PCP, Cardiology, Other (Nephrology) Patient Education/Counseling: Diagnosis, Treatment Family Education/Counseling: Diagnosis, Treatment, No Family Present SEPSIS Sepsis Screen Date sepsis recognized/suspect: Nov 28, 2024 Time Sepsis recognized/suspect: 1604 Recent Procedure: No On Antibiotic Therapy: No Respiratory Rate >20: No Heart Rate >90: No Temp<36 C (96.8 F) or >38.3 C: No SBP <90 or MAP <65 mmHG: No New Acute Mental Status Change: No Is the patient on CPAP, BIPAP,: No Physician Orders Urinalysis (11/28/24 16:14) Heplock Iv (11/28/24 16:14) Vital Signs Date Time Temp Pulse Resp B/P (MAP) Pulse Ox O2 Delivery O2 Flow Rate FiO2 11/28/24 22:53 66 11/28/24 21:30 97.2 66 12 111/66 (81) 96 97.2 11/28/24 18:40 222/107 11/28/24 18:34 98.1 80 20 222/107 (145) 96 98.1 11/28/24 18:34 Room Air* 0 21 11/28/24 16:02 98.0 77 16 220/119 97 98.0 Laboratory Tests Test 11/28/24 16:33 White Blood Count 10.2 10^3/uL (4.4-10.8) Medications Medications Dose Ordered Sig/Ronn Route Start Time Stop Time Status Last Admin Dose Admin Acetaminophen/ Hydrocodone Bitart 1 tab ONCE ONCE PO 11/28/24 16:15 11/28/24 16:16 DC 11/28/24 18:40 Clonidine HCl 0.2 mg ONCE ONCE PO 11/28/24 16:15 11/28/24 16:16 DC 11/28/24 18:40 Departure 1 Departure Time of Disposition: 00:05 Impression: Primary Impression: Acute coronary syndrome Additional Impressions: Elevated troponin Acute renal injury Hypertensive emergency Hyperglycemia due to diabetes mellitus Disposition: ADMITTED INPATIENT Condition: Stable Discharged With: Self Critical Care Note Critical Care Time?: No Stability Stability form required: No Heart Score Heart Score: Heart Score Response (Comments) Value History Moderate Suspicious 1 EKG Repolarization Disturb 1 Age 45-64 1 Risk Factors >3 or Hx ASHD 2 Troponin 1-2 x's Normal limit 1 Total 6 I personally scribed for KYLEIGH CARLIN PAC ([email or web address]) on 11/28/24 at 16:36. Electronically submitted by Idania Youngblood ([email or web address]). KYLEIGH CARLIN [facility] Nov 28, 2024 16:36
[2024-11-28 16:53] LABS: Hematocrit 37.9 % (36.0-46.0); Hemoglobin 12.5 g/dL (12.2-16.2); Mean Corpuscular Hemoglobin 27.0 pg (28.0-32.0); Mean Corpuscular Volume 81.8 fL (80.0-100.0); Nucleated Red Blood Cells % 0.0 %
[2024-11-28 16:58] LABS: Chloride 103 mmol/L (98-107); Potassium 4.5 mmol/L (3.5-5.1); Sodium 137 mmol/L (136-145)
[2024-11-28 16:59] LABS: Anion Gap 8 (5-15); Calcium 9.3 mg/dL (8.7-10.4); Carbon Dioxide 26 mmol/L (20-31)
[2024-11-28 17:04] LABS: BUN/Creatinine Ratio 17.5 (10.0-20.0)
[2024-11-28 17:05] LABS: Blood Urea Nitrogen 24 mg/dL (9-23); Glucose 194 mg/dL (74-106)
[2024-11-28] MEDS: HYDROcodone-ACET 10/325MG TAB PO ONE (18:40)
--- NOTE | 2024-11-28 23:35 | ECG ---
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
--- NOTE | 2024-11-29 02:34 | DVHHPRES ---
History of Present Illness Resident Creating Document: LUCILA STEPHENS RESIDENT History of Present Illness Jean Dent is a 59 yo female, with past medical history of HTN, DM2, Hyperlipidemia, anemia, chronic back pain, DVT and PE. The patient presented to the ED with chief complaint of chest pain and high blood pressure. The patient reports 1 month intermittent pressure like chest pain 5/10, substernal that irradiates to the neck and left shoulder that aggravates with physical activity and improves at rest. Today, the chest pain became continuous and did not improved at rest and the blood pressure was elevated associated with heart palpitations, dizziness, this prompted her visit to the ED. Upon arrival, the BP was 220/119 mmHg, HR: 80. Troponins: 41, 38, 4, D-Dimer 0.67. Patient denies nausea, vomiting or other symptoms at this moment. The patient will be admitted for further evaluation and high blood pressure control. Cardiovascular: HTN Renal/: Other (kidney stones) Endocrine: Diabetes (type 2 ) Past Surgical History: Appendectomy, (5), Tonsillectomy Smoke: Quit (Smoked for 12 years, 1 pack per day, quit in 2019) ALCOHOL: occassional Drugs: None Lives: with Family Review of Systems Constitutional: No: Fever, Chills, Sweats, Weakness, Malaise, Other Eyes: No: Pain, Vision change, Conjunctivae inflammation, Eyelid inflammation, Other, Redness ENT: No: Ear pain, Ear discharge, Nose pain, Nose discharge, Nose congestion, Mouth pain, Mouth swelling, Throat pain, Throat swelling, Other Respiratory: No: Cough, Dry, Shortness of breath, SOB with excertion, Wheezing, Hemoptysis, Pleuritic Pain, Sputum, Wheezing, Other Cardiovascular: Chest Pain, Palpitations, Lt Headedness (dizziness) Gastrointestinal: No: Nausea, Vomiting, Abdominal Pain, Diarrhea, Constipation, Melena, Hematochezia, Other Genitourinary: No Dysuria, No Frequency, No Incontinence, No Hematuria, No Retention, No Other Musculoskeletal: neck pain, shoulder pain; No: other, arm pain, back pain, hand pain, leg pain, foot pain Skin: No: Rash, Lesions, Jaundice, Bruising, Other Neurological: No: Weakness, Numbness, Incoordination, Change in speech, Confusion, Seizures, Other Allergies: Coded Allergies: NO KNOWN ALLERGIES (Unverified , 12/31/15) Medications Current Medications Medications Dose Ordered Sig/Ronn Route Start Time Stop Time Status Last Admin Dose Admin Nitroglycerin 0.4 mg Q5MINP PRN SL 11/29/24 02:30 Morphine Sulfate 2 mg Q30M PRN IV 11/29/24 02:30 Pantoprazole Sodium 40 mg DAILY PO 11/29/24 10:00 Exam Vital Signs Vital Signs Date Time Temp Pulse Resp B/P (MAP) Pulse Ox O2 Delivery O2 Flow Rate FiO2 11/29/24 00:43 98.0 66 12 128/78 (95) 97 98.0 11/28/24 18:34 Room Air* 0 21 General Appearance: Alert, Oriented X3, Cooperative, mild distress HEENT: Atraumatic, Mucous membr. moist/pink Respiratory: Clear to auscultation, Normal air movement Cardiovascular: Regular rate, Normal S1, Normal S2, No murmurs Abdominal: Normal bowel sounds, Soft, No tenderness, No hepatospenomegaly Extremities: No clubbing, No cyanosis, No edema, Normal pulses, No tenderness/swelling Skin: No rashes, No breakdown, No significant lesion Neuro: Normal gait, Normal speech, Strength at 5/5 X4 ext, Normal tone, Sensation intact, Cranial nerves 3-12 NL Psych/Mental Status: Mental status NL, Mood NL Labs/Xrays Labs Test 11/28/24 22:56 11/28/24 19:15 11/28/24 16:33 Range/Units POC Glucose 282 H 70-106 mg/dl Troponin I High Sensitivity 43 *H </=34 ng/L White Blood Count 10.2 4.4-10.8 10^3/uL Red Blood Count 4.64 4.0-5.20 10^6/uL Hemoglobin 12.5 12.2-16.2 g/dL Hematocrit 37.9 36.0-46.0 % Mean Corpuscular Volume 81.8 80.0-100.0 fL Mean Corpuscular Hemoglobin 27.0 L 28.0-32.0 pg Mean Corpuscular Hemoglobin Concent 33.0 32.0-36.0 g/dL Red Cell Distribution Width 14.1 11.8-14.3 % Platelet Count 274 140-450 10^3/uL Mean Platelet Volume 8.3 6.9-10.8 fL Neutrophils (%) (Auto) 75.3 37.0-80.0 % Lymphocytes (%) (Auto) 13.2 10.0-50.0 % Monocytes (%) (Auto) 7.1 0.0-12.0 % Eosinophils (%) (Auto) 3.6 0.0-7.0 % Basophils (%) (Auto) 0.8 0.0-2.0 % Neutrophils # (Auto) 7.7 1.6-8.6 10 ^3/uL Lymphocytes # (Auto) 1.3 0.4-5.4 10 ^3/uL Monocytes # (Auto) 0.7 0-1.3 10 ^3/uL Eosinophils # (Auto) 0.4 0-0.8 10 ^3/uL Basophils # (Auto) 0.1 0-0.2 10 ^3/uL Nucleated Red Blood Cells 0.0 % D-Dimer, Quantitative 0.67 H 0.0-0.49 mg/L FEU Sodium Level 137 136-145 mmol/L Potassium Level 4.5 3.5-5.1 mmol/L Chloride Level 103 98-107 mmol/L Carbon Dioxide Level 26 20-31 mmol/L Anion Gap 8 5-15 Blood Urea Nitrogen 24 H 9-23 mg/dL Creatinine 1.37 H 0.550-1.02 mg/dL Glomerular Filtration Rate Calc 44 >90 mL/min BUN/Creatinine Ratio 17.5 10.0-20.0 Serum Glucose 194 H 74-106 mg/dL Calcium Level 9.3 8.7-10.4 mg/dL SEPSIS Sepsis Screen Date sepsis recognized/suspect: Nov 28, 2024 Time Sepsis recognized/suspect: 1604 Recent Procedure: No On Antibiotic Therapy: No Respiratory Rate >20: No Heart Rate >90: No Temp<36 C (96.8 F) or >38.3 C: No SBP <90 or MAP <65 mmHG: No New Acute Mental Status Change: No Is the patient on CPAP, BIPAP,: No Physician Orders Admit (11/29/24 02:20) Code Status (11/29/24 02:20) Vital Signs .PER UNIT PROTOCOL (11/29/24 02:20) Review Orders With Adm. (11/29/24 02:20) Notify Md Of Changes From Base (11/29/24 02:20) Advance Directive (11/29/24 02:20) Patient Condition (11/29/24 02:20) Allergies (11/29/24 02:20) Nitroglycerin Sublingual (Ntrostat Subli (11/29/24 02:30) Morphine Sulfate Injection (11/29/24 02:30) Stat Ekg For Chest Pain (11/29/24 02:20) Notify Md Of Changes From Base (11/29/24 02:20) Hook And Eye Machine Operator For 24 Hours (11/29/24 02:20) Rhythm Strips Once Every Shift (11/29/24 02:20) Pantoprazole Tablet (Protonix Tablet) (11/29/24 10:00) Echo 2d Mode Cardiac Dop (11/29/24 02:20) Chest Xray 1 View (11/29/24 02:20) * Cardiology Consult (11/29/24 02:20) Cardiac Diet-2gna,Lofat,Lochol (11/29/24 Breakfast) Drug Screen (11/29/24 02:20) Baclofen Tablet (Liorisal Tablet) (11/29/24 02:30) Metoprolol Xl Succinate (Toprol Xl) (11/29/24 20:00) Nifedipine Er (Procardia Xl (Time-Releas (11/29/24 09:00) Vital Signs Date Time Temp Pulse Resp B/P (MAP) Pulse Ox O2 Delivery O2 Flow Rate FiO2 11/29/24 00:43 98.0 66 12 128/78 (95) 97 98.0 11/28/24 22:53 66 11/28/24 21:30 97.2 66 12 111/66 (81) 96 97.2 11/28/24 18:40 222/107 11/28/24 18:34 98.1 80 20 222/107 (145) 96 98.1 11/28/24 18:34 Room Air* 0 21 Laboratory Tests Test 11/28/24 16:33 White Blood Count 10.2 10^3/uL (4.4-10.8) Medications Medications Dose Ordered Sig/Ronn Route Start Time Stop Time Status Last Admin Dose Admin Acetaminophen/ Hydrocodone Bitart 1 tab ONCE ONCE PO 11/28/24 16:15 11/28/24 16:16 DC 11/28/24 18:40 1 TAB Clonidine HCl 0.2 mg ONCE ONCE PO 11/28/24 16:15 11/28/24 16:16 DC 11/28/24 18:40 0.2 MG Assessment/Plan Assessment/Plan #hypertensive emergency #Chest pain possible NSTEMI type 2 #Rule out stable angina Clonidine 0.2mg Telemetry EKG ECHO D2 Troponins Cardiac consult #R/O pulmonary embolism D-Dimer 0.67 US Doppler Wells score 7.[address] angiogram #SHAQ VMN IV fluids: NS Avoid nephrotoxic drugs Monitor Crea, BUN prior CT angiogram #DM type 2 with hyperglycemia HbA1C Insulin sliding scale #Obesity Counseling life style changes #Generalized Anxiety Lorazepam 0.5mg prn #Depression Medication reconciliation Cardiac diet DVT prophylaxis-Lovenox sc PUD prophylaxis Protonic Goals of care discussed with the patient > 35 min. Discussed plan of care with Dr. Brody Code status: Full code PCP: Dr. Triston Evans Plan discussed with: Patient, the patient agrees with the admission plan. Plan discussed with: Patient My Orders Orders - LUCILA STEPHENS RESIDENT Procedure Category Date Status Time Admit ADMIT 11/29/24 Transmitted 02:20 Code Status CODE 11/29/24 Transmitted 02:20 Vital Signs [facility] 11/29/24 In Process 02:20 Review Orders With [facility] 11/29/24 In Process Adm. 02:20 Notify Of Changes [facility] 11/29/24 In Process From Base 02:20 Advance Directive [facility] 11/29/24 In Process 02:20 Patient Condition ORDERS 11/29/24 Transmitted 02:20 Allergies [facility] 11/29/24 In Process 02:20 Nitroglycerin [facility] 11/29/24 In Process Sublingual (Ntrostat 02:30 Morphine Sulfate [facility] 11/29/24 In Process Injection 02:30 Stat Ekg For Chest [facility] 11/29/24 In Process Pain 02:20 Notify Of Changes [facility] 11/29/24 In Process From Base 02:20 Hook And Eye Machine Operator For [facility] 11/29/24 In Process 24 Hours 02:20 Rhythm Strips Once [facility] 11/29/24 In Process Every Shift 02:20 Pantoprazole Tablet [facility] 11/29/24 In Process (Protonix Tablet) 10:00 Echo 2d Mode Cardiac US 11/29/24 Logged DOP 02:20 Chest Xray 1 View XY 11/29/24 Logged 02:20 * Cardiology Consult CONS 11/29/24 Transmitted 02:20 Cardiac DIET 11/29/24 Transmitted Diet-2gna,Lofat,Lochol Breakfast Drug Screen LAB 11/29/24 Logged 02:20 Baclofen Tablet [facility] 11/29/24 Verified (Liorisal Tablet) 02:30 Metoprolol Xl [facility] 11/29/24 Verified Succinate (Toprol Xl) 20:00 Nifedipine Er PHA 11/29/24 Verified (Procardia Xl 09:00 Common Visit Codes: 35381-GGPUHWV INP/OBS CARE (HIGH) Secondary Visit Codes: 93902-[id number] CARE PLAN 30 MINUTES LUCILA STEPHENS RESIDENT Nov 29, 2024 02:34
--- NOTE | 2024-11-29 03:35 | DVH ---
CHEST RADIOGRAPH Indication: Chest pain Technique: 1 view Comparison: XY CHEST PORTABLE on DOS: 06/29/24, XY CHEST PORTABLE on DOS: 01/12/24, XY CHEST XRAY 1 VIEW on DOS: 04/01/23, XY CHEST PORTABLE on DOS: 03/25/23 FINDINGS: Lines and Tubes: None Lungs: No focal consolidation. Mild interstitial opacities. Pleura: No effusion or pneumothorax. Cardiomediastinal contours: Unremarkable. Other: No acute osseous abnormality. IMPRESSION: 1. No acute cardiopulmonary abnormality or significant change from prior exam. Mild interstitial opac ities redemonstrated.
[2024-11-29] MEDS: ENOXAPARIN SOD 40 MG/0.4 ML SYRINGE SC ONE (03:39)
[2024-11-29] MEDS: DOCUSATE SOD 100 MG CAP PO ONE (03:39)
[2024-11-29] MEDS: LORazepam 0.5 MG TAB PO ONE (03:39)
[2024-11-29] MEDS: HYDROcodone-ACET 10/325MG TAB PO PRN (03:49)
[2024-11-29] MEDS ORDERED: DEXTROSE (50%) 50ML SYRG IV PRN (04:15)
[2024-11-29] MEDS: SODIUM CHLORIDE 0.9% 1,000 ML IV SCH (04:30)
[2024-11-29] MEDS: ACCU-CHEK COMFORT CURVE STRIP VI SCH (06:11)
[2024-11-29] MEDS: InsuLIN REG 1unit/0.01ml Soln (100units/ml) SC SCH (06:17)
[2024-11-29 06:59] LABS: Hematocrit 33.6 % (36.0-46.0); Hemoglobin 11.2 g/dL (12.2-16.2); Mean Corpuscular Hemoglobin 27.4 pg (28.0-32.0); Mean Corpuscular Volume 81.8 fL (80.0-100.0); Nucleated Red Blood Cells % 0.0 %
[2024-11-29 07:11] LABS: Albumin 4.0 g/dL (3.2-4.8); Anion Gap 8 (5-15); BUN/Creatinine Ratio 16.5 (10.0-20.0); Bilirubin, Total 0.3 mg/dL (0.2-1.0); Calcium 8.7 mg/dL (8.7-10.4); Carbon Dioxide 25 mmol/L (20-31); Chloride 101 mmol/L (98-107); Potassium 4.4 mmol/L (3.5-5.1); Total Protein 6.7 g/dL (5.7-8.2)
[2024-11-29 07:13] LABS: Alanine Aminotransferase < 9 U/L (7-40); Alkaline Phosphatase 131 U/L (46-116); Blood Urea Nitrogen 31 mg/dL (9-23); Glucose 314 mg/dL (74-106); Sodium 134 mmol/L (136-145)
[2024-11-29 08:15] VITALS: PULSE 61; RESP 14; O2SAT 96
--- NOTE | 2024-11-29 08:17 | DVH ---
Bilateral lower extremity venous duplex Clinical History: R/O DVT wells score 7.5 Comparison: None Technique: Duplex Doppler evaluation of the deep venous systems of both lower extremities from the common femora l veins to the popliteal veins including color Doppler and spectral/pulsed waveform analysis was perf ormed. Findings: RIGHT SIDE: The common femoral vein demonstrates appropriate compressibility and waveform variability. There is compressibility/patency of the great saphenous vein at the proximal thigh. The femoral vein demonstrates appropriate compressibility and waveform variability. The deep femoral vein demonstrates appropriate compressibility and waveform variability. The popliteal vein demonstrates appropriate compressibility and waveform variability. There is normal compressibility at the tibioperoneal trunk. LEFT SIDE: The common femoral vein demonstrates appropriate compressibility and waveform variability. There is compressibility/patency of the great saphenous vein at the proximal thigh. The femoral vein demonstrates appropriate compressibility and waveform variability. The deep femoral vein demonstrates appropriate compressibility and waveform variability. The popliteal vein demonstrates appropriate compressibility and waveform variability. There is normal compressibility at the tibioperoneal trunk. Impression: No right or left femoropopliteal venous thrombosis.
[2024-11-29] MEDS: PANTOPRAZOLE 40 MG TAB PO SCH (09:40)
--- NOTE | 2024-11-29 10:35 | DVHINCON2 ---
Date Seen: Nov 29, 2024 Referring Physician MD Antony Reason for Consultation Rule out stable angina History of Present Illness This is a 59-year-old female who presented to the emergency room with a chief complaint of uncontrolled hypertension. The patient reports she presented to her pain management clinic and after obtaining vital signs she was found with a systolic blood pressure of 245 mmHg and afterwards being referred to the nearest emergency room. Upon arrival to the emergency room she was found with a systolic blood pressure up to 222 mmHg for which she was medicated with clonidine HCL 0.2 mg. Denies chest pain, palpitations, diaphoresis, SOB, dizziness, or syncopal events. Home medications include losartan- hydrochlorothiazide 100mg-25mg QD, nifedipine ER 30 mg q.day, and metoprolol XL 50 mg q.d. the patient does admit of skipping antihypertensive therapy at times. A 12 lead electrocardiogram revealed a normal sinus rhythm. Troponin levels peaked at 43 ng/L. Significant medical history includes hypertension, dyslipidemia, [id number] diabetes mellitus, chronic kidney disease stage 3, anemia, asthma, chronic neck/back pain, anxiety, depression, bipolar disorder, and obesity. Past Medical History Past medical history reviewed. No other significant than mentioned above. Past Surgical History C-sections x5 Tonsillectomy Appendectomy Family History: Aneurysm Cardiovascular disease G8 MOTHER Diabetes mellitus G8 MOTHER G8 FATHER Family History Family history reviewed. Social History Denies the current use of tobacco use. Quit smoking in 2020. Admits to occasional alcohol use. Admits to occasional cannabinoid edibles. Allergies: Coded Allergies: NO KNOWN ALLERGIES (Unverified , 12/31/15) Home Meds Active Scripts Hydrocodone-Acetaminophen (Hydrocodone Bitartrate/AC 5-325 mg) 1 Tab Tab, 1 TAB PO Q8HP PRN for 7 Days, #21 TAB Prov:PAYAM PEREZ MD 01/21/24 Nifedipine (Nifedipine Er) 30 Mg Tab, 60 MG PO DAILY for 30 Days, #60 TAB 3 Refi lls Prov:DUSTIN OLIVERA DO 01/17/24 Metoprolol Tartrate (Lopressor) 25 Mg Tb, 12.5 MG PO BID for 30 Days, #30 TAB 3 Refills Prov:DUSTIN OLIVEAR DO 01/17/24 Levalbuterol HCl (Levalbuterol HCl) 1.25 Mg/3 Ml Neb, 0.625 MG NEB Q6HR for 30 Days, #30 INH 3 Refills Prov:DUSTIN OLIVERA DO 01/17/24 Atorvastatin Calcium (ATORVASTATIN CALCIUM) 20 Mg Tab, 80 MG PO HS for 30 Days, #30 TAB 3 Refills Prov:CORRY CAMPOS MD 04/05/23 Aspirin (Aspirin Low Dose) 81 Mg Tab, 81 MG PO DAILY for 30 Days, #30 TAB 3 Refills Prov:CORRY CAMPOS MD 04/05/23 Pantoprazole Sodium Sesquihydr (Pantoprazole Sodium) 40 Mg Tab, 40 MG PO DAILY for 30 Days, #30 TAB 2 Refills Prov:CORRY CAMPOS MD 03/30/23 Reported Medications Cyclobenzaprine Hcl (Cyclobenzaprine Hcl) 10 Mg Tab, 10 MG PO [id number], TAB 01/13/24 Glimepiride (Glimepiride) 1 Mg Tab, 1 TAB PO DAILY 01/13/24 Fluoxetine Hcl (Fluoxetine Hcl) 40 Mg Cap, 1 CAP PO DAILY 03/26/23 Alprazolam (Alprazolam) 0.5 Mg Tab, PO 03/26/23 Lamotrigine (Lamotrigine) 200 Mg Tab, 1 TAB PO BID 03/26/23 Bupropion Hcl (Bupropion Hcl Xl) 300 Mg Tab, 1 TAB PO DAILY 03/26/23 Divalproex Sodium (Divalproex Sodium) 500 Mg Tab, 1 TAB PO DAILY 03/26/23 Quetiapine Fumerate (QUETIAPINE FUMARATE) 400 Mg Tab, 1 TAB PO BID 03/26/23 Home Meds Home medications reviewed. Current Medications Current Medications Medications (Trade) Dose Ordered Sig/Ronn Route PRN Reason Start Time Stop Time Status Last Admin Nitroglycerin (Ntrostat Sublingual) 0.4 mg Q5MINP PRN SL FOR CHEST PAIN 11/29/24 02:30 Morphine Sulfate 2 mg Q30M PRN IV FOR CHEST PAIN 11/29/24 02:30 Pantoprazole Sodium (Protonix Tablet) 40 mg DAILY PO 11/29/24 10:00 11/29/24 09:40 Baclofen (Liorisal Tablet) 10 mg TID PRN PO FOR MUSCLE SPASM 11/29/24 02:30 Acetaminophen/ Hydrocodone Bitart ([place] 10/325MG Tab) 1 tab Q4HP PRN PO MODERATE PAIN (4-6 PAIN SCALE) 11/29/24 03:45 11/29/24 03:49 Diagnostic Test (Pha) (Accu-Chek Comfort Curve T) 1 strip Q6HR 11/29/24 06:00 11/29/24 06:11 Insulin Human Regular (InsuLIN R) Q6HR SC 11/29/24 06:00 11/29/24 06:17 Dextrose 50 ml UD PRN IV Blood Sugar LESS THAN 60 11/29/24 04:15 Sodium Chloride 1,000 ml @ 75 mls/hr [id number] IV 11/29/24 04:30 Insulin Glargine (Lantus) 20 units HS SC 11/29/24 22:00 UNV Review of Systems Constitutional: No symptom reported Ears, Nose, & Throat: No symptom reported Eyes: No symptom reported Neurological: No symptoms reported Pulmonary/Respiratory: No symptom reported Cardiovascular: No symptom reported Gastrointestinal: No symptom reported Genitourinary: No symptom reported Musculoskeletal: No symptom reported Skin: No symptom reported Psychiatric: No symptom reported Endocrine: No symptom reported Hemotologic/Lymphatic: No symptom reported Vital Signs Vital Signs Date Time Temp Pulse Resp B/P (MAP) Pulse Ox O2 Delivery O2 Flow Rate FiO2 11/29/24 09:44 124/80 11/29/24 08:15 61 14 96 Room Air* 0 21 11/29/24 08:11 97.3 97.3 Physical Exam General Appearance: Cooperative. Well developed. Well nourished. In no acute distress Head Exam: Normal inspection Neck Exam: Normal inspection. Non-tender. Normal alignment Pulmonary/Respiratory: Chest non-tender. Clear bilateral breath sounds Cardiovascular/Chest: Regular rate and rhythm. S1, S2. NSR. No murmurs. No JVD. Peripheral Pulses: 2+ Radial (R). 2+ Radial (L). 2+ Pedal (R). 2+ Pedal (L) Abdominal Exam: Normal bowel sounds. Soft. Nontender. No hepatospenomegaly. No masses Ankle Exam: Negative ankle edema Lower extremities: Negative lower extremity edema Neuro/Mental Status: A&O x4. Coherent Thoughts/Psych: Normal thought pattern. Appropriate mood and affect. Good judgement and insight Appearance: In no acute distress Skin Exam: Normal inspection. Normal color. Warm. Dry Labs/Diagnostic Data Labs Test 11/29/24 06:34 11/29/24 06:13 11/28/24 19:15 11/28/24 16:33 Range/Units White Blood Count 8.8 4.4-10.8 10^3/uL Red Blood Count 4.10 4.0-5.20 10^6/uL Hemoglobin 11.2 L 12.2-16.2 g/dL Hematocrit 33.6 #L 36.0-46.0 % Mean Corpuscular Volume 81.8 80.0-100.0 fL Mean Corpuscular Hemoglobin 27.4 L 28.0-32.0 pg Mean Corpuscular Hemoglobin Concent 33.5 32.0-36.0 g/dL Red Cell Distribution Width 14.0 11.8-14.3 % Platelet Count 244 140-450 10^3/uL Mean Platelet Volume 8.6 6.9-10.8 fL Neutrophils (%) (Auto) 71.1 37.0-80.0 % Lymphocytes (%) (Auto) 15.6 10.0-50.0 % Monocytes (%) (Auto) 8.8 0.0-12.0 % Eosinophils (%) (Auto) 3.9 0.0-7.0 % Basophils (%) (Auto) 0.6 0.0-2.0 % Neutrophils # (Auto) 6.2 1.6-8.6 10 ^3/uL Lymphocytes # (Auto) 1.4 0.4-5.4 10 ^3/uL Monocytes # (Auto) 0.8 0-1.3 10 ^3/uL Eosinophils # (Auto) 0.3 0-0.8 10 ^3/uL Basophils # (Auto) 0.1 0-0.2 10 ^3/uL Nucleated Red Blood Cells 0.0 % Sodium Level 134 L 136-145 mmol/L Potassium Level 4.4 3.5-5.1 mmol/L Chloride Level 101 98-107 mmol/L Carbon Dioxide Level 25 20-31 mmol/L Anion Gap 8 5-15 Blood Urea Nitrogen 31 H 9-23 mg/dL Creatinine 1.88 #H 0.550-1.02 mg/dL Glomerular Filtration Rate Calc 30 >90 mL/min BUN/Creatinine Ratio 16.5 10.0-20.0 Serum Glucose 314 H 74-106 mg/dL Hemoglobin A1c 10.0 H <5.7 % A1C Calcium Level 8.7 8.7-10.4 mg/dL Total Bilirubin 0.3 0.2-1.0 mg/dL Aspartate Amino Transferase (AST) 10 L 13-40 U/L Alanine Aminotransferase (ALT) < 9 7-40 U/L Alkaline Phosphatase 131 H 46-116 U/L B-Type Natriuretic Peptide 158.97 0-100 pg/mL Total Protein 6.7 5.7-8.2 g/dL Albumin 4.0 3.2-4.8 g/dL POC Glucose 319 H 70-106 mg/dl Troponin I High Sensitivity 43 *H </=34 ng/L D-Dimer, Quantitative 0.67 H 0.0-0.49 mg/L FEU Assessment Hypertensive urgency NSTEMI, likely type 2 secondary to above Mfb-uqiyccy-nbguacxev diabetes mellitus, uncontrolled HgbA1C 10.0% Acute kidney injury on CKD Suboptimal medical therapy/Medical noncompliance Obesity Plan/Recommendation (Dr. Nazario) The patient presents with a hypertensive urgency likely secondary to medical noncompliance as she skips her antihypertensive therapy at home at times. Continue BB and nifedipine therapy and uptitrate to maintain a systolic blood pressure <140 mmHg. Consider transitioning from metoprolol to Coreg for better blood pressure management if necessary. Hold HCTZ and ARB given acute kidney i njury. The patient was counseled on medical compliance, low Na diet, and weight loss. There is no further cardiac workup indicated at this time. Kindly call if you need to re-consult. Thank you for allowing us to participate in this patient's care. This medical document was created using an electronic medical record system with voice recognition software and computerized dictation system. Although this document has been carefully reviewed, there might still be some phonetic and typographical errors. Occasional wrong-word or ``sound-alike substitutions may have occurred due to the inherent limitations of voice recognition software. These areas are purely typographical due to imperfections of the software programs and do not reflect any compromise in the patient's medical care. Please read the chart carefully and recognize, using context, where these substitutions have occurred. Plan discussed with: Patient, Other NYHA Physical activity limitations: NA Date of Service: Nov 29, 2024 Billing Provider: SARAH TORRES Cardiology Common Codes: [id number] INP/OBS CARE (High) SARAH TORRES Nov 29, 2024 10:35
[2024-11-29 10:51] LABS: HDL Cholesterol 49.0 mg/dL (40-59)
[2024-11-29 10:53] LABS: Cholesterol 252.0 mg/dL (< 200); Triglycerides 260.0 mg/dL (< 150)
--- NOTE | 2024-11-29 13:26 | DVHPNRES ---
Progress Note Date Seen: Nov 29, 2024 Resident Creating Document: LEFTY HOWARD RESIDENT Medical Necessity Reason Pt with a Central, PICC or Fol: No Subjective Review of Systems Jean Dent is a 59 yo female, with past medical history of HTN, DM2,CKD3b, Hyperlipidemia, anemia, chronic back pain, DVT and PE. The patient presented to the ED with chief complaint of chest pain and high blood pressure which she found out when she went to pain management and they took her BP and told her to goto the ER. The patient reports 1 month intermittent pressure like chest pain 5/10, substernal that irradiates to the neck and left shoulder that aggravates with physical activity and improves at rest. Today, the chest pain became continuous and did not improved at rest and the blood pressure was elevated associated with heart palpitations, dizziness, this prompted her visit to the ED. Upon arrival, the BP was 220/119 mmHg, HR: 80. Patient denies nausea, vomiting or other symptoms at this moment. The patient will be admitted for further evaluation and high blood pressure control. PMH: HTN, ckd3b, Diabetes type 2, PSH: Appendectomy, (5), Tonsillectomy Smoke: Quit (Smoked for 12 years, 1 pack per day, quit in 2022) ALCOHOL: occassional Drugs: None Lives: with Family ROS: Patient is slightly anxious today. We checked lipid levels and ASCVD score came 11, we started on atorvastatin 40mg hs. vit d levels were low so we repleted it. the pts hba1c was 10 so we gave insulin lantus 10u stat and will give lantus 20u hs ronn. we also have started sliding scale insulin. patient has hfpef so we started Jardiance. Objective vital signs Vital Sign Date Time Temp Pulse Resp B/P (MAP) Pulse Ox O2 Delivery O2 Flow Rate FiO2 11/29/24 09:44 124/80 11/29/24 08:15 61 14 96 Room Air* 0 21 11/29/24 08:11 97.3 97.3 medications Current Medications Medications Dose Ordered Sig/Ronn Route Start Time Stop Time Status Last Admin Dose Admin Nitroglycerin 0.4 mg Q5MINP PRN SL 11/29/24 02:30 Morphine Sulfate 2 mg Q30M PRN IV 11/29/24 02:30 Pantoprazole Sodium 40 mg DAILY PO 11/29/24 10:00 11/29/24 09:40 40 MG Baclofen 10 mg TID PRN PO 11/29/24 02:30 Acetaminophen/ Hydrocodone Bitart 1 tab Q4HP PRN PO 11/29/24 03:45 11/29/24 03:49 1 TAB Diagnostic Test (Pha) 1 strip Q6HR 11/29/24 06:00 11/29/24 12:23 1 STRIP Insulin Human Regular Q6HR SC 11/29/24 06:00 11/29/24 12:29 3 UNITS Dextrose 50 ml UD PRN IV 11/29/24 04:15 Sodium Chloride 1,000 ml @ 75 mls/hr [id number] IV 11/29/24 04:30 Insulin Glargine 20 units HS SC 11/29/24 22:00 Nifedipine 30 mg DAILY PO 11/30/24 10:00 Empaglifozin 10 mg DAILY PO 11/29/24 13:00 UNV Ergocalciferol 50,000 unit Q7D PO 11/29/24 13:15 UNV Atorvastatin Calcium 40 mg HS PO 11/29/24 22:00 UNV Examination General Appearance: Alert, Oriented X3, Cooperative, mild distress HEENT: Atraumatic, Mucous membr. moist/pink Respiratory: Clear to auscultation, Normal air movement Cardiovascular: Regular rate, Normal S1, Normal S2, No murmurs Abdominal: Normal bowel sounds, Soft, No tenderness, No hepatospenomegaly Extremities: No clubbing, No cyanosis, No edema, Normal pulses, mild b/l pitting edema Skin: No rashes, No breakdown, No significant lesion Neuro: Normal gait, Normal speech, Strength at 5/5 X4 ext, Normal tone, Sensation intact, Cranial nerves 3-12 NL Psych/Mental Status: Mental status NL, Mood NL laboratory and microbiology Laboratory Tests 11/29/24 06:34 Test 11/29/24 06:34 Range/Units Serum Glucose 314 H 74-106 mg/dL Labs and/or images reviewed: Labs reviewed by me, Image(s) reviewed by me Problem List/Assessment/Plan Problem List/Assessment/Plan #hypertensive emergency #Chest pain possible NSTEMI type 2 #Rule out stable angina #chronic CHF -BNP: 158.97 -Clonidine 0.2mg -Telemetry -EKG normal -ECHO -Troponins 41-38-43 -Jardiance -transitioning from metoprolol to Coreg -[employer] consulted, suggested: Continue BB and nifedipine therapy and uptitrate to maintain a systolic blood pressure <140 mmHg. Hold HCTZ and ARB given acute kidney injury. The patient was counseled on medical compliance, low Na diet, and weight loss. #R/O pulmonary embolism D-Dimer 0.67 US Doppler normal Wells score for dvt -2 #SHAQ on CKD 3b IV fluids: NS Avoid nephrotoxic drugs Monitor Crea, BUN #DM type 2 with hyperglycemia [id number] Insulin sliding scale Insulin lantus 10u stat Insulin lantus 20u hs #hyperipedemia ASCVD score 11% avorvastatin 40mg po hs #Obesity Counseling life style changes #Generalized Anxiety Lorazepam 0.5mg prn #Depression Medication reconciliation #vit d deficiency repleted DVT prophylaxis: Lovenox sc PUD prophylaxis: Protonic diet: Cardiac diet Goals of care discussed with the patient > 35 min. Discussed plan of care with Plan discussed with: Patient, Other (rn) My Orders My Orders Orders - LEFYT HOWARD Procedure Category Date Status Time Insulin Lantus PHA 11/29/24 In Process (Glargine) (Lantus) 22:00 Urinalysis LAB 11/29/24 Logged 09:52 Drug Screen LAB 11/29/24 Logged 09:52 Insulin Lantus PHA 11/29/24 Logged (Glargine) (Lantus) 13:00 Empagliflozin PHA 11/29/24 Logged (Jardiance) 13:00 Ergocalciferol PHA 11/29/24 Logged (Vitamin D 50,000 13:15 Atorvastatin (Lipitor) PHA 11/29/24 Logged 22:00 Phosphorus LAB 11/29/24 Logged 13:16 Date of Service: Nov 29, 2024 Billing Provider: EUNICE OLMOS MD Common Visit Codes: [id number] INP/OBS CARE(HIGH) LEFTY HOWARD Nov 29, 2024 13:26 EUNICE OLMOS MD Dec 09, 2024 03:20
[2024-11-29] MEDS: MORPHINE SULFATE INJ 2 MG/ml SYRG IV PRN (14:28)
--- NOTE | 2024-11-29 15:47 | DVHSR ---
APPROVED REPORT EXAM: Two-dimensional and M-mode echocardiogram with Doppler and color Doppler. Blood Pressure: 144/74 mmHg INDICATION Heart Failure RISK FACTORS Height: 5'1", Weight: 170 DIMENSIONS LVDd4.4 (3.8-5.7cm)LA (2D)4.7 (1.9-4.0cm)Aortic Root2.8 (2.0-3.7cm) LVDs2.8 (2.5-4.0cm)LA (MM) (1.9-4.0cm)Aortic Cusp Exc1.9 (1.5-2.0cm) EF (%) 66.0 (55-70%)Rt. Atrium3.7 (1.9-4.0cm)Asc. Aorta cm IVSd1.6 (0.7-1.1cm)RV (D)2.9 (1.8-2.4cm) PWd0.9 (0.7-1.1cm) Mitral Valve MitralMitral Stenosis E wave0.90m/sMV Mean GR.mmHg A wave1.18m/sMV Peak GR.mmHg E/A ratio0.82D MVAcm2 DECEL [id number] 1/2 Timems Aortic Valve Aortic ValveAortic Stenosis V11.19m/Cristy Mean GR.7mmHg V21.88m/Cristy Peak GR.14mmHg LVOT Diameter2.0 (1.8-2.4cm)Doppler AVA1.99cm2 Pulmonic Valve V20.85m/s Tricuspid Valve TR Velocity3.20m/s [id number] Other Information Quality : Technically LimitedRhythm : Technically limited study due to body habitus. Conclusion lvef 65% normal rv fucntion no severe valve abnormaliteis noted left atrium enlarged
[2024-11-29] MEDS: EMPAGLIFLOZIN 10 MG TAB PO SCH (17:57)
[2024-11-29] MEDS: ERGOCALCIFEROL 50,000 UNIT(1.25MG) CAP PO SCH (17:57)
[2024-11-29] MEDS: CARVEDILOL 3.125 MG TAB PO ONE (18:13)
[2024-11-29] MEDS: INSULIN LANTUS (GLARGINE) 1 /0.01ml (100units/ml) SC ONE (18:20)
[2024-11-29 19:14] VITALS: BP 162/86; PULSE 83; RESP 20; TEMP 98; O2SAT 98
[2024-11-29] MEDS ORDERED: METOPROLOL SUCCINATE XL 50 MG TAB PO ONE (20:00)
[2024-11-29 21:00] VITALS: BP 154/81; PULSE 78; RESP 18; TEMP 98.1; O2SAT 97
[2024-11-29] MEDS: CARVEDILOL 3.125 MG TAB PO SCH (21:19)
[2024-11-29] MEDS: BACLOFEN 10 MG TAB PO PRN (21:19)
[2024-11-29] MEDS: ATORVASTATIN 20 MG TAB PO SCH (21:19)
[2024-11-29] MEDS: INSULIN LANTUS (GLARGINE) 1 /0.01ml (100units/ml) SC SCH (21:35)
[2024-11-29 22:00] VITALS: PULSE 67
[2024-11-29 22:10] VITALS: BP 132/66; PULSE 70; PULSE 71; RESP 12; TEMP 98.2; O2SAT 94
[2024-11-29] MEDS: NITROGLYCERIN 0.4 MG SL TAB SL PRN (22:36)
[2024-11-30] VITALS (12 sets, daily range): BP systolic 104–183; BP diastolic 61–102; PULSE 66–81; RESP 15–18; TEMP 97.7–98.3; O2SAT 93–98
[2024-11-30] MEDS ORDERED: LOSA100T25 PO (00:56)
[2024-11-30] MEDS ORDERED: ZIPR80CA43 PO (00:56)
[2024-11-30] MEDS: ALPRAZolam 0.5 MG TAB PO ONE (02:17)
[2024-11-30 06:17] LABS: Urine Protein, UAD 1+ (Negative)
[2024-11-30 06:23] LABS: Protein, Urine 61.2 mg/dL (1-14)
[2024-11-30 06:24] LABS: Protein, Urine 60.1 mg/dL (1-14)
[2024-11-30 06:26] LABS: Amphetamine Screen, Urine Neg (NEGATIVE); Barbiturate Scree,Urine Neg (NEGATIVE); Benzodiazephine Screen, Urine Neg (NEGATIVE); Cannabinoid Screen, Urine Neg (NEGATIVE); Cocaine Screen, Urine Neg (NEGATIVE); Opiate Scree,Urine Pos (NEGATIVE); Phencyclidine Screen, Urine Neg (NEGATIVE)
[2024-11-30 08:28] LABS: Hematocrit 31.9 % (36.0-46.0); Hemoglobin 10.8 g/dL (12.2-16.2); Mean Corpuscular Hemoglobin 27.5 pg (28.0-32.0); Mean Corpuscular Volume 81.6 fL (80.0-100.0); Nucleated Red Blood Cells % 0.1 %
[2024-11-30 08:44] LABS: Chloride 105 mmol/L (98-107); Potassium 4.3 mmol/L (3.5-5.1); Sodium 139 mmol/L (136-145)
[2024-11-30 08:45] LABS: Anion Gap 5 (5-15); Carbon Dioxide 29 mmol/L (20-31)
[2024-11-30 08:46] LABS: Calcium 9.1 mg/dL (8.7-10.4)
[2024-11-30 08:50] LABS: BUN/Creatinine Ratio 16.3 (10.0-20.0)
[2024-11-30 09:05] LABS: Blood Urea Nitrogen 28 mg/dL (9-23); Glucose 134 mg/dL (74-106)
[2024-11-30] MEDS ORDERED: CYCLOBENZAPRINE HCL 10 MG TAB PO SCH (10:00)
[2024-11-30] MEDS ORDERED: LAMOTRIGINE 200 MG PO SCH (10:00)
[2024-11-30] MEDS ORDERED: PATIENTS OWN MEDICATION (Quetiapine Fumerate (Quetiapine Fumarate) 1 TAB) PO SCH (10:00)
[2024-11-30] MEDS ORDERED: ZIPRASIDONE HYDROCHLORIDE PO SCH (10:00)
[2024-11-30] MEDS ORDERED: BUPROPION HCL 300 MG PO SCH (10:00)
[2024-11-30] MEDS ORDERED: lamoTRIgine 100 MG TAB PO SCH (10:16)
[2024-11-30] MEDS: ZIPRASIDONE 80 MG PO SCH (13:08)
[2024-11-30] MEDS: CARVEDILOL 3.125 MG TAB PO ONE (14:23)
[2024-11-30] MEDS: lamoTRIgine 100 MG TAB PO SCH (14:24)
[2024-11-30] MEDS ORDERED: ERGO1CAP23 PO (15:44)
[2024-11-30] MEDS ORDERED: CARV-214 PO (15:44)
[2024-11-30] MEDS ORDERED: EMPA1TAB PO (15:44)
[2024-11-30] MEDS: hydrALAZINE HCL 20 MG/ML VL IV ONE (17:10)
--- NOTE | 2024-11-30 17:57 | DVHDSRES ---
Discharge Summary Date of Admission Resident Creating Document: LEFTY HOWARD RESIDENT Nov 29, 2024 at 02:20 Date of Discharge: Nov 30, 2024 Admitting Diagnosis #hypertensive crisis Labs/Diagnostic Data: Laboratory Results Test 11/30/24 17:37 11/30/24 08:17 11/30/24 05:50 11/29/24 23:52 POC Glucose 189 mg/dl (70-106) White Blood Count 7.0 10^3/uL (4.4-10.8) Red Blood Count 3.91 10^6/uL (4.0-5.20) Hemoglobin 10.8 g/dL (12.2-16.2) Hematocrit 31.9 % (36.0-46.0) Mean Corpuscular Volume 81.6 fL (80.0-100.0) Mean Corpuscular Hemoglobin 27.5 pg (28.0-32.0) Mean Corpuscular Hemoglobin Concent 33.7 g/dL (32.0-36.0) Red Cell Distribution Width 13.9 % (11.8-14.3) Platelet Count 231 10^3/uL (140-450) Mean Platelet Volume 7.8 fL (6.9-10.8) Neutrophils (%) (Auto) 66.3 % (37.0-80.0) Lymphocytes (%) (Auto) 19.0 % (10.0-50.0) Monocytes (%) (Auto) 9.2 % (0.0-12.0) Eosinophils (%) (Auto) 4.8 % (0.0-7.0) Basophils (%) (Auto) 0.7 % (0.0-2.0) Neutrophils # (Auto) 4.6 10 ^3/uL (1.6-8.6) Lymphocytes # (Auto) 1.3 10 ^3/uL (0.4-5.4) Monocytes # (Auto) 0.6 10 ^3/uL (0-1.3) Eosinophils # (Auto) 0.3 10 ^3/uL (0-0.8) Basophils # (Auto) 0 10 ^3/uL (0-0.2) Nucleated Red Blood Cells 0.1 % Sodium Level 139 mmol/L (136-145) Potassium Level 4.3 mmol/L (3.5-5.1) Chloride Level 105 mmol/L (98-107) Carbon Dioxide Level 29 mmol/L (20-31) Anion Gap 5 (5-15) Blood Urea Nitrogen 28 mg/dL (9-23) Creatinine 1.72 mg/dL (0.550-1.02) Glomerular Filtration Rate Calc 33 mL/min (>90) BUN/Creatinine Ratio 16.3 (10.0-20.0) Serum Glucose 134 mg/dL (74-106) Calcium Level 9.1 mg/dL (8.7-10.4) Urine Color Colorless (Yellow) Urine Clarity Clear (Clear) Urine pH 6.0 (5.0-9.0) Urine Specific [place] 1.010 (1.001-1.035) Urine Protein 1+ (Negative) Urine Ketones Negative (Negative) Urine Blood Trace /uL (Negative) Urine Nitrite Negative (Negative) Urine Bilirubin Negative (Negative) Urine Urobilinogen Normal mg/dL (Negative) Urine Leukocyte Esterase Negative /uL (Negative) Urine RBC None seen /hpf (0 - 4) Urine Microscopic WBC < 1 /HPF (0-5) Urine Squamous Epithelial Cells Few /hpf (<5) Urine Bacteria None seen /hpf (None Seen) Urine Creatinine 39.18 mg/dL (30.0-125.0) Urine Protein/Creatinine Ratio 1.53 Urine Sodium 110 mmol/L (40-220) Urine Glucose 4+ mg/dL (Normal) Urine Total Protein 60.1 mg/dL (1-14) Urine Opiates Screen Pos (NEGATIVE) Urine Fentanyl Screen Neg (NEGATIVE) Urine Barbiturates Screen Neg (NEGATIVE) Urine Phencyclidine Screen Neg (NEGATIVE) Urine Amphetamines Screen Neg (NEGATIVE) Urine Benzodiazepines Screen Neg (NEGATIVE) Urine Cocaine Screen Neg (NEGATIVE) Urine Cannabinoids Screen Neg (NEGATIVE) Troponin I High Sensitivity 36 ng/L (</=34) Test 11/29/24 14:12 11/29/24 06:34 11/28/24 16:33 Phosphorus Level 3.6 mg/dL (2.4-5.1) Hemoglobin A1c 10.0 % A1C (<5.7) Total Bilirubin 0.3 mg/dL (0.2-1.0) Aspartate Amino Transferase (AST) 10 U/L (13-40) Alanine Aminotransferase (ALT) < 9 U/L (7-40) Alkaline Phosphatase 131 U/L (46-116) B-Type Natriuretic Peptide 158.97 pg/mL (0-100) Total Protein 6.7 g/dL (5.7-8.2) Albumin 4.0 g/dL (3.2-4.8) Triglycerides Level 260 mg/dL (< 150) Cholesterol Level 252 mg/dL (< 200) LDL Cholesterol 169 mg/dL (< 100) HDL Cholesterol 49 mg/dL (40-59) Vitamin D 25-Hydroxy 14.5 ng/mL (30.0-100) Thyroid Stimulating Hormone (TSH) 1.30 uIU/mL (0.55-4.78) Parathyroid Hormone (Intact) 131.9 pg/mL (18.4-80.1) D-Dimer, Quantitative 0.67 mg/L FEU (0.0-0.49) Other Laboratory Tests 11/30/24 08:17 Brief Hx & Hospital Course: Jean Dent is a 59 yo female, with past medical history of HTN, DM2,CKD3b, Hyperlipidemia, anemia, chronic back pain, DVT and PE. The patient presented to the ED with chief complaint of chest pain and high blood pressure which she found out when she went to pain management and they took her BP and told her to goto the ER. The patient reports 1 month intermittent pressure like chest pain 5/10, substernal that irradiates to the neck and left shoulder that aggravates with physical activity and improves at rest. Today, the chest pain became continuous and did not improved at rest and the blood pressure was elevated associated with heart palpitations, dizziness, this prompted her visit to the ED. Upon arrival, the BP was 220/119 mmHg, HR: 80. Patient denies nausea, vomiting or other symptoms at this moment. The patient will be admitted for further evaluation and high blood pressure control. PMH: HTN, ckd3b, Diabetes type 2, PSH: Appendectomy, (5), Tonsillectomy Smoke: Quit (Smoked for 12 years, 1 pack per day, quit in 2022) ALCOHOL: occassional Drugs: None Lives: with Family Brief history of hospitalization: Patient came in with hypertensive Urgency with a blood pressure of 220/119 mg. chest pain with possible NSTEMI type 2 as troponins were slightly elevated 41, 48 and then 43. We ruled out stable angina. She had chronic HFpEF in BNP was 158.97. Patient was given clonidine 0.2 mg in the blood pressure decreased. We monitored her on telemetry and did an EKG which came back normal. Echo was done as well Which showed an ejection fraction of 65% with no abnormalities. We started the patient on Jardiance and transitioned her medication of metoprolol to Coreg 12.5 mg during hospitalization. Cardiology was consulted who suggested continuing beta-fariba and nifedipine therapy and up titrating to maintain a systolic blood pressure less than 140 mmHg. Hydrochlorothiazide and ARB was on hold due to patient's higher creatinine level. Patient has been noncompliant with medication and so we have counseled her regarding the importance of compliance, a low sodium diet and weight loss. patient verbalized understanding. We also ruled out pulmonary embolism given her D-dimer of 0.67 and Venous Doppler was normal. for SHAQ on CKD 3B we continued fluids and avoid nephrotoxic drugs and monitored her kidney function test. For patient's diabetes mellitus type 2 with hyperglycemia and HbA1c of 10 we started insulin sliding scale. We gave Lantus 10 units stat and continued Lantus 20 units HS daily. For hyperlipidemia we calculated her ASCVD score which was 11% so we started her with 40 mg atorvastatin HS. During hospitalization, patient's blood pressure was slightly high a few times and we gave her Coreg 12.5 mg and hydralazine 10 mg IV stat. It then when back to normal. Patient was counseled regarding need of exercise, healthy diet for her obesity. We also continued her home medications for depression and anxiety. Patient has vitamin-D levels were low during hospitalization and we have repleted it. Patient is now stable for discharge. She is feeling better and we have counseled her regarding the adherence to medication for her blood pressure, adherence to other medicines that she is taking as well. we have counseled her to stop metoprolol and nifedipine and instead take Coreg 6.25 mg twice daily, tab Jardiance 10 mg once daily, increased the dose of atorvastatin from 20 to 40 mg and to continue the rest of her medications at home. Patient communicated understanding and agreed with the discharge plan. General Appearance: Alert, Oriented X3, Cooperative, mild distress HEENT: Atraumatic, Mucous membr. moist/pink Respiratory: Clear to auscultation, Normal air movement Cardiovascular: Regular rate, Normal S1, Normal S2, No murmurs Abdominal: Normal bowel sounds, Soft, No tenderness, No hepatospenomegaly Extremities: No clubbing, No cyanosis, No edema, Normal pulses, mild b/l pitting edema Skin: No rashes, No breakdown, No significant lesion Neuro: Normal gait, Normal speech, Strength at 5/5 X4 ext, Normal tone, Sensation intact, Cranial nerves 3-12 NL Psych/Mental Status: Mental status NL, Mood NL Operations or Procedures Bilateral lower extremity venous duplex: Impression: No right or left femoropopliteal venous thrombosis. CXR1 - CHEST XRAY 1 VIEW REASON: Chest pain ORDER NUMBER(s): [id number], ACCESSION NUMBER(s): [id number] CHEST RADIOGRAPH Indication: Chest pain IMPRESSION: No acute cardiopulmonary abnormality or significant change from prior exam. Mild interstitial opacities redemonstrated. EXAM: Two-dimensional and M-mode echocardiogram with Doppler and color Doppler. Blood Pressure: 144/74 mmHg INDICATION Heart Failure RISK FACTORS Height: 5'1", Weight: 170 DIMENSIONS LVDd 4.4 (3.8-5.7cm) LA (2D) 4.7 (1.9-4.0cm) Aortic Root 2.8 (2.0- 3.7cm) LVDs 2.8 (2.5-4.0cm) LA (MM) (1.9-4.0cm) Aortic Cusp Exc 1.9 (1.5- 2.0cm) EF (%) 66.0 (55-70%) Rt. Atrium 3.7 (1.9-4.0cm) Asc. Aorta cm IVSd 1.6 (0.7-1.1cm) RV (D) 2.9 (1.8-2.4cm) PWd 0.9 (0.7-1.1cm) Mitral Valve Mitral Mitral Stenosis E wave 0.90m/s MV Mean GR. mmHg A wave 1.18m/s MV Peak GR. mmHg E/A ratio 0.8 2D MVA cm2 DECEL Time 246ms PRESS 1/2 Time ms Aortic Valve Aortic Valve Aortic Stenosis V1 1.19m/s AO Mean GR. 7mmHg V2 1.88m/s AO Peak GR. 14mmHg LVOT Diameter 2.0 (1.8-2.4cm) Doppler SENG 1.99cm2 Pulmonic Valve V2 0.85m/s Tricuspid Valve TR Velocity 3.20m/s RVSP 49mmHg Other Information Quality : Technically Limited Rhythm : Technically limited study due to body habitus. Conclusion lvef 65% normal rv fucntion no severe valve abnormaliteis noted left atrium enlarged SIGNED BY: ALBERTO TEJEDA MD SIGNED DATE/TIME: 11/29/24 9091 Final Diagnosis/Problems List #hypertensive crisis #Chest pain possible NSTEMI type 2 #Rule out stable angina #chronic CHF HfpEf #R/O pulmonary embolism #vit d deficiency #SHAQ on CKD 3b #DM type 2 with hyperglycemia #hyperipedemia #Obesity #Generalized Anxiety #Depression Discharge Disposition: Home Discharge Instruct/Medications Diet: Consistent carbohydrate, Cardiac 2g Na,low cholest Activity: No Restrictions, As Tolerated Follow Up/Referral: Follow up with PCP in 10 days Follow up in discharge clinic within 1 week Medications: Tab atorvastatin 40 mg orally daily at night Stop metoprolol and nifedipine, instead tab Coreg 6.25 mg twice daily tab Jardiance 10mg once daily Continue losartan, rest of the home medications Scheduled Aspirin (Aspirin Low Dose), 81 MG PO DAILY Atorvastatin Calcium (Atorvastatin Calcium), 80 MG PO HS Bupropion Hcl (Bupropion Hcl Xl), 1 TAB PO DAILY, (Reported) Carvedilol (Coreg), 6.25 MG PO Q12HR Cyclobenzaprine Hcl (Cyclobenzaprine Hcl), 10 MG PO [id number], (Reported) Divalproex Sodium (Divalproex Sodium), 1 TAB PO DAILY, (Reported) Empagliflozin (Jardiance), 10 MG PO DAILY Ergocalciferol (Vitamin D 44093 Unit), 50,000 UNIT PO Q7D Fluoxetine Hcl (Fluoxetine Hcl), 1 CAP PO DAILY, (Reported) Glimepiride (Glimepiride), 1 TAB PO DAILY, (Reported) Lamotrigine (Lamotrigine), 1 TAB PO BID, (Reported) Levalbuterol HCl (Levalbuterol HCl), 0.625 MG NEB Q6HR Losartan Potassium & Hydrochlo (Hyzaar), 1 TAB PO DAILY, (Reported) Pantoprazole Sodium Sesquihydr (Pantoprazole Sodium), 40 MG PO DAILY Quetiapine Fumerate (Quetiapine Fumarate), 1 TAB PO BID, (Reported) Ziprasidone Hydrochloride (Geodon), 1 CAP PO DAILY, (Reported) Scheduled PRN Hydrocodone-Acetaminophen (Hydrocodone Bitartrate/AC 5-325 mg), 1 TAB PO Q8HP PRN Miscellaneous Medications Alprazolam (Alprazolam), PO, (Reported) Discontinued Medications Metoprolol Tartrate (Lopressor), 12.5 MG PO BID Nifedipine (Nifedipine Er), 60 MG PO DAILY Discharge Statement: "Patient was advised to return to the ER or call 911 if any headaches, dizziness, shortness of breath, chest pain, abdominal pain, bleeding, fevers, or worsening of medical condition. Patient was counseled about treatment plan, medications, possible side effects, patientverbalized understanding. All questions were answered to the best of my ability. This discharge took greater then 30 minutes in planning, reviewing documentation, counseling the patient, and discussing with other team members." ASSESSMENT ASSESSMENT Assessment hypertensive crisis LEFTY HOWARD RESIDENT Nov 30, 2024 17:57
[2024-11-30] MEDS ORDERED: SPIRONOLACTONE 25 MG TAB PO ONE (18:45)
--- NOTE | 2024-11-30 19:06 | DVHPNRES ---
Progress Note Date Seen: Nov 30, 2024 Resident Creating Document: LEFTY HOWARD RESIDENT Medical Necessity Reason Pt with a Central, PICC or Fol: No Subjective Review of Systems Jean Dent is a 59 yo female, with past medical history of HTN, DM2,CKD3b, Hyperlipidemia, anemia, chronic back pain, DVT and PE. The patient presented to the ED with chief complaint of chest pain and high blood pressure which she found out when she went to pain management and they took her BP and told her to goto the ER. The patient reports 1 month intermittent pressure like chest pain 5/10, substernal that irradiates to the neck and left shoulder that aggravates with physical activity and improves at rest. Today, the chest pain became continuous and did not improved at rest and the blood pressure was elevated associated with heart palpitations, dizziness, this prompted her visit to the ED. Upon arrival, the BP was 220/119 mmHg, HR: 80. Patient denies nausea, vomiting or other symptoms at this moment. The patient will be admitted for further evaluation and high blood pressure control. PMH: HTN, ckd3b, Diabetes type 2, PSH: Appendectomy, (5), Tonsillectomy Smoke: Quit (Smoked for 12 years, 1 pack per day, quit in 2022) ALCOHOL: occassional Drugs: None Lives: with Family ROS: Patient is slightly anxious today. We checked lipid levels and ASCVD score came 11, we started on atorvastatin 40mg hs. vit d levels were low so we repleted it. the pts hba1c was 10 so we gave insulin lantus 10u stat and will give lantus 20u hs ronn. we also have started sliding scale insulin. patient has hfpef so we started Jardiance. 11/30/2024: Patient was seen and examined by me at the bedside. Patient reports that she had chest pain at night that was radiating towards her left shoulder and also was the right side of her chest. She described it as pressure-like pain rating it as 10/10 in intensity. she was given morphine for the pain. She did not have the pain in the morning. We plan to discharge the patient today but her blood pressure has been high- systolic 170s and diastolic in the 100s. We have given her Coreg 12.5 stat which lower the blood pressure for a while but it increased again so we gave hydralazine 10 mg stat. Patient has a history of depression and anxiety and a blood pressure is fluctuating so we will keep her overnight and monitor her. Objective vital signs Vital Sign Date Time Temp Pulse Resp B/P (MAP) Pulse Ox O2 Delivery O2 Flow Rate FiO2 11/30/24 17:10 179/102 11/30/24 17:00 98.1 76 15 95 98.1 11/30/24 08:00 Room Air* 0 21 Total Intake and Output 11/29/24 11/29/24 11/30/24 15:00 23:00 07:00 Intake Total 400 ml Balance 400 ml medications Current Medications Medications Dose Ordered Sig/Ronn Route Start Time Stop Time Status Last Admin Dose Admin Nitroglycerin 0.4 mg Q5MINP PRN SL 11/29/24 02:30 11/29/24 22:49 0.4 MG Morphine Sulfate 2 mg Q30M PRN IV 11/29/24 02:30 11/29/24 22:33 2 MG Pantoprazole Sodium 40 mg DAILY PO 11/29/24 10:00 11/30/24 08:45 40 MG Baclofen 10 mg TID PRN PO 11/29/24 02:30 11/30/24 18:45 10 MG Acetaminophen/ Hydrocodone Bitart 1 tab Q4HP PRN PO 11/29/24 03:45 11/29/24 20:19 1 TAB Diagnostic Test (Pha) 1 strip Q6HR 11/29/24 06:00 11/30/24 17:43 1 STRIP Insulin Human Regular Q6HR SC 11/29/24 06:00 11/30/24 17:43 3 UNITS Dextrose 50 ml UD PRN IV 11/29/24 04:15 Insulin Glargine 20 units HS SC 11/29/24 22:00 11/29/24 21:35 20 UNITS Empaglifozin 10 mg DAILY PO 11/29/24 13:00 11/30/24 08:45 10 MG Ergocalciferol 50,000 unit Q7D PO 11/29/24 13:15 11/29/24 17:57 50,000 UNIT Atorvastatin Calcium 40 mg HS PO 11/29/24 22:00 11/29/24 21:19 40 MG Carvedilol 3.125 mg Q12HR PO 11/29/24 22:00 11/30/24 08:45 3.125 MG Cyclobenzaprine HCl 10 mg [id number] PO 11/30/24 10:00 Hold Divalproex Sodium 500 mg DAILY PO 11/30/24 10:40 Hold Fluoxetine HCl 40 mg DAILY PO 11/30/24 10:43 Hold Lamotrigine 200 mg Q12HR PO 11/30/24 13:09 11/30/24 14:24 200 MG Quetiapine Fumarate 400 mg BID PO 11/30/24 22:00 Patient Own Medication 1 DAILY PO 11/30/24 13:08 Spironolactone 25 mg DAILY PO 12/01/24 10:00 Bupropion HCl 150 mg BID@07,19 PO 11/30/24 19:00 Examination General Appearance: Alert, Oriented X3, Cooperative, mild distress HEENT: Atraumatic, Mucous membr. moist/pink Respiratory: Clear to auscultation, Normal air movement Cardiovascular: Regular rate, Normal S1, Normal S2, No murmurs Abdominal: Normal bowel sounds, Soft, No tenderness, No hepatospenomegaly Extremities: No clubbing, No cyanosis, No edema, Normal pulses, mild b/l pitting edema Skin: No rashes, No breakdown, No significant lesion Neuro: Normal gait, Normal speech, Strength at 5/5 X4 ext, Normal tone, Sensation intact, Cranial nerves 3-12 NL Psych/Mental Status: Mental status NL, Mood NL laboratory and microbiology Laboratory Tests 11/30/24 08:17 Test 11/30/24 08:17 Range/Units Serum Glucose 134 H 74-106 mg/dL Labs and/or images reviewed: Labs reviewed by me, Image(s) reviewed by me Problem List/Assessment/Plan Problem List/Assessment/Plan #hypertensive emergency #Chest pain possible NSTEMI type 2 #Rule out stable angina #chronic CHF -BNP: 158.97 -Clonidine 0.2mg -Telemetry -EKG normal -ECHO -Troponins 41-38-43 -Jardiance -transitioning from metoprolol to Coreg -Carido consulted, suggested: Continue BB and nifedipine therapy and uptitrate to maintain a systolic blood pressure <140 mmHg. Hold HCTZ and ARB given acute kidney injury. The patient was counseled on medical compliance, low Na diet, and weight loss. - 11/30/24: Coreg 12.5 mg, hydralazine 10 mg given for high blood pressure #R/O pulmonary embolism D-Dimer 0.67 US Doppler normal Wells score for dvt -2 #SAHQ on CKD 3b IV fluids: NS Avoid nephrotoxic drugs Monitor Crea, BUN #DM type 2 with hyperglycemia [id number] Insulin sliding scale Insulin lantus 10u stat Insulin lantus 20u hs #hyperipedemia ASCVD score 11% avorvastatin 40mg po hs #Obesity Counseling life style changes #Generalized Anxiety Lorazepam 0.5mg prn #Depression Medication reconciliation #vit d deficiency repleted DVT prophylaxis: Lovenox sc PUD prophylaxis: Protonic diet: Cardiac diet Goals of care discussed with the patient > 35 min. Discussed plan of care with Dr. Cates, patient and nurse Plan discussed with: Patient, Other (rn) My Orders My Orders Orders - LEFTY HOWARD Procedure Category Date Status Time Cyclobenzaprine PHA 11/30/24 In Process Tablet (Flexeril 10:[address] Tablet PHA 11/30/24 In Process (Depakote "Dr" Tabl 10:40 Fluoxetine Capsule PHA 11/30/24 In Process (Prozac Capsule) 10:43 Lamotrigine Tablet PHA 11/30/24 In Process (Lamictal Tablet) 13:09 Quetiapine Fumarate PHA 11/30/24 In Process Tablet (Seroquel Tab 22:00 Patients Own PHA 11/30/24 In Process Medication 13:08 Discharge DISCHARGE 11/30/24 Transmitted 15:43 Bupropion Tablet PHA 11/30/24 In Process (Wellbutrin Tablet) 19:00 Date of Service: Nov 30, 2024 Billing Provider: SHARDA CATES MD Common Visit Codes: [id number] INP/OBS CARE(HIGH) LEFTY HOWARD Nov 30, 2024 19:06 SHARDA CATES MD Dec 02, 2024 21:18
[2024-11-30] MEDS ORDERED: MORPHINE SULFATE INJ 2 MG/ml SYRG IV PRN (19:15)
[2024-11-30] MEDS: CARVEDILOL 3.125 MG TAB PO SCH (21:56)
[2024-12-01 05:00] VITALS: BP 108/65; PULSE 68; RESP 19; TEMP 97.2; O2SAT 97
[2024-12-01 08:00] VITALS: RESP 16; O2SAT 98
[2024-12-01] MEDS ORDERED: SPIRONOLACTONE 25 MG TAB PO SCH (10:00)
--- NOTE | 2024-12-01 12:32 | DVHDSRES ---
Discharge Summary Date of Admission Resident Creating Document: FARNAZ ZAVALETA Nov 29, 2024 at 02:20 Date of Discharge: Nov 30, 2024 Admitting Diagnosis Hypertensive crisis Labs/Diagnostic Data: Laboratory Results Test 12/01/24 05:34 11/30/24 08:17 11/30/24 05:50 11/29/24 23:52 POC Glucose 125 mg/dl (70-106) White Blood Count 7.0 10^3/uL (4.4-10.8) Red Blood Count 3.91 10^6/uL (4.0-5.20) Hemoglobin 10.8 g/dL (12.2-16.2) Hematocrit 31.9 % (36.0-46.0) Mean Corpuscular Volume 81.6 fL (80.0-100.0) Mean Corpuscular Hemoglobin 27.5 pg (28.0-32.0) Mean Corpuscular Hemoglobin Concent 33.7 g/dL (32.0-36.0) Red Cell Distribution Width 13.9 % (11.8-14.3) Platelet Count 231 10^3/uL (140-450) Mean Platelet Volume 7.8 fL (6.9-10.8) Neutrophils (%) (Auto) 66.3 % (37.0-80.0) Lymphocytes (%) (Auto) 19.0 % (10.0-50.0) Monocytes (%) (Auto) 9.2 % (0.0-12.0) Eosinophils (%) (Auto) 4.8 % (0.0-7.0) Basophils (%) (Auto) 0.7 % (0.0-2.0) Neutrophils # (Auto) 4.6 10 ^3/uL (1.6-8.6) Lymphocytes # (Auto) 1.3 10 ^3/uL (0.4-5.4) Monocytes # (Auto) 0.6 10 ^3/uL (0-1.3) Eosinophils # (Auto) 0.3 10 ^3/uL (0-0.8) Basophils # (Auto) 0 10 ^3/uL (0-0.2) Nucleated Red Blood Cells 0.1 % Sodium Level 139 mmol/L (136-145) Potassium Level 4.3 mmol/L (3.5-5.1) Chloride Level 105 mmol/L (98-107) Carbon Dioxide Level 29 mmol/L (20-31) Anion Gap 5 (5-15) Blood Urea Nitrogen 28 mg/dL (9-23) Creatinine 1.72 mg/dL (0.550-1.02) Glomerular Filtration Rate Calc 33 mL/min (>90) BUN/Creatinine Ratio 16.3 (10.0-20.0) Serum Glucose 134 mg/dL (74-106) Calcium Level 9.1 mg/dL (8.7-10.4) Urine Color Colorless (Yellow) Urine Clarity Clear (Clear) Urine pH 6.0 (5.0-9.0) Urine Specific [place] 1.010 (1.001-1.035) Urine Protein 1+ (Negative) Urine Ketones Negative (Negative) Urine Blood Trace /uL (Negative) Urine Nitrite Negative (Negative) Urine Bilirubin Negative (Negative) Urine Urobilinogen Normal mg/dL (Negative) Urine Leukocyte Esterase Negative /uL (Negative) Urine RBC None seen /hpf (0 - 4) Urine Microscopic WBC < 1 /HPF (0-5) Urine Squamous Epithelial Cells Few /hpf (<5) Urine Bacteria None seen /hpf (None Seen) Urine Creatinine 39.18 mg/dL (30.0-125.0) Urine Protein/Creatinine Ratio 1.53 Urine Sodium 110 mmol/L (40-220) Urine Glucose 4+ mg/dL (Normal) Urine Total Protein 60.1 mg/dL (1-14) Urine Opiates Screen Pos (NEGATIVE) Urine Fentanyl Screen Neg (NEGATIVE) Urine Barbiturates Screen Neg (NEGATIVE) Urine Phencyclidine Screen Neg (NEGATIVE) Urine Amphetamines Screen Neg (NEGATIVE) Urine Benzodiazepines Screen Neg (NEGATIVE) Urine Cocaine Screen Neg (NEGATIVE) Urine Cannabinoids Screen Neg (NEGATIVE) Troponin I High Sensitivity 36 ng/L (</=34) Test 11/29/24 14:12 11/29/24 06:34 11/28/24 16:33 Phosphorus Level 3.6 mg/dL (2.4-5.1) Hemoglobin A1c 10.0 % A1C (<5.7) Total Bilirubin 0.3 mg/dL (0.2-1.0) Aspartate Amino Transferase (AST) 10 U/L (13-40) Alanine Aminotransferase (ALT) < 9 U/L (7-40) Alkaline Phosphatase 131 U/L (46-116) B-Type Natriuretic Peptide 158.97 pg/mL (0-100) Total Protein 6.7 g/dL (5.7-8.2) Albumin 4.0 g/dL (3.2-4.8) Triglycerides Level 260 mg/dL (< 150) Cholesterol Level 252 mg/dL (< 200) LDL Cholesterol 169 mg/dL (< 100) HDL Cholesterol 49 mg/dL (40-59) Vitamin D 25-Hydroxy 14.5 ng/mL (30.0-100) Thyroid Stimulating Hormone (TSH) 1.30 uIU/mL (0.55-4.78) Parathyroid Hormone (Intact) 131.9 pg/mL (18.4-80.1) D-Dimer, Quantitative 0.67 mg/L FEU (0.0-0.49) Other Laboratory Tests 11/30/24 08:17 Brief Hx & Hospital Course: Jean Dent is a 59 yo female, with past medical history of HTN, DM2,CKD3b, Hyperlipidemia, anemia, chronic back pain, DVT and PE. The patient presented to the ED with chief complaint of chest pain and high blood pressure which she found out when she went to pain management and they took her BP and told her to goto the ER. The patient reports 1 month intermittent pressure like chest pain 5/10, substernal that irradiates to the neck and left shoulder that aggravates with physical activity and improves at rest. Today, the chest pain became continuous and did not improved at rest and the blood pressure was elevated associated with heart palpitations, dizziness, this prompted her visit to the ED. Upon arrival, the BP was 220/119 mmHg, HR: 80. Patient denies nausea, vomiting or other symptoms at this moment. The patient will be admitted for further evaluation and high blood pressure control. PMH: HTN, ckd3b, Diabetes type 2, PSH: Appendectomy, (5), Tonsillectomy Smoke: Quit (Smoked for 12 years, 1 pack per day, quit in 2022) ALCOHOL: occassional Drugs: None Lives: with Family Brief history of hospitalization: Patient came in with hypertensive Urgency with a blood pressure of 220/119 mg. chest pain with possible NSTEMI type 2 as troponins were slightly elevated 41, 48 and then 43. We ruled out stable angina. She had chronic HFpEF in BNP was 158.97. Patient was given clonidine 0.2 mg in the blood pressure decreased. We monitored her on telemetry and did an EKG which came back normal. Echo was done as well Which showed an ejection fraction of 65% with no abnormalities. We started the patient on Jardiance and transitioned her medication of metoprolol to Coreg 12.5 mg during hospitalization. Cardiology was consulted who suggested continuing beta-fariba and nifedipine therapy and up titrating to maintain a systolic blood pressure less than 140 mmHg. Hydrochlorothiazide and ARB was on hold due to patient's higher creatinine level. Patient has been noncompliant with medication and so we have counseled her regarding the importance of compliance, a low sodium diet and weight loss. patient verbalized understanding. We also ruled out pulmonary embolism given her D-dimer of 0.67 and Venous Doppler was normal. for SHAQ on CKD 3B we continued fluids and avoid nephrotoxic drugs and monitored her kidney function test. For patient's diabetes mellitus type 2 with hyperglycemia and HbA1c of 10 we started insulin sliding scale. We gave Lantus 10 units stat and continued Lantus 20 units HS daily. For hyperlipidemia we calculated her ASCVD score which was 11% so we started her with 40 mg atorvastatin HS. During hospitalization, patient's blood pressure was slightly high a few times and we gave her Coreg 12.5 mg and hydralazine 10 mg IV stat. It then when back to normal. Patient was counseled regarding need of exercise, healthy diet for her obesity. We also continued her home medications for depression and anxiety. Patient has vitamin-D levels were low during hospitalization and we have repleted it. Patient is now stable for discharge. She is feeling better and we have counseled her regarding the adherence to medication for her blood pressure, adherence to other medicines that she is taking as well. we have counseled her to stop metoprolol and nifedipine and instead take Coreg 6.25 mg twice daily, tab Jardiance 10 mg once daily, increased the dose of atorvastatin from 20 to 40 mg and to continue the rest of her medications at home. Patient communicated understanding and agreed with the discharge plan. General Appearance: Alert, Oriented X3, Cooperative, mild distress HEENT: Atraumatic, Mucous membr. moist/pink Respiratory: Clear to auscultation, Normal air movement Cardiovascular: Regular rate, Normal S1, Normal S2, No murmurs Abdominal: Normal bowel sounds, Soft, No tenderness, No hepatospenomegaly Extremities: No clubbing, No cyanosis, No edema, Normal pulses, mild b/l pitting edema Skin: No rashes, No breakdown, No significant lesion Neuro: Normal gait, Normal speech, Strength at 5/5 X4 ext, Normal tone, Sensation intact, Cranial nerves 3-12 NL Psych/Mental Status: Mental status NL, Mood NL Operations or Procedures Bilateral lower extremity venous duplex: Impression: No right or left femoropopliteal venous thrombosis. CXR1 - CHEST XRAY 1 VIEW REASON: Chest pain ORDER NUMBER(s): [id number], ACCESSION NUMBER(s): [id number] CHEST RADIOGRAPH Indication: Chest pain IMPRESSION: No acute cardiopulmonary abnormality or significant change from prior exam. Mild interstitial opacities redemonstrated. EXAM: Two-dimensional and M-mode echocardiogram with Doppler and color Doppler. Blood Pressure: 144/74 mmHg INDICATION Heart Failure RISK FACTORS Height: 5'1", Weight: 170 DIMENSIONS LVDd 4.4 (3.8-5.7cm) LA (2D) 4.7 (1.9-4.0cm) Aortic Root 2.8 (2.0- 3.7cm) LVDs 2.8 (2.5-4.0cm) LA (MM) (1.9-4.0cm) Aortic Cusp Exc 1.9 (1.5- 2.0cm) EF (%) 66.0 (55-70%) Rt. Atrium 3.7 (1.9-4.0cm) Asc. Aorta cm IVSd 1.6 (0.7-1.1cm) RV (D) 2.9 (1.8-2.4cm) PWd 0.9 (0.7-1.1cm) Mitral Valve Mitral Mitral Stenosis E wave 0.90m/s MV Mean GR. mmHg A wave 1.18m/s MV Peak GR. mmHg E/A ratio 0.8 2D MVA cm2 DECEL Time 246ms PRESS 1/2 Time ms Aortic Valve Aortic Valve Aortic Stenosis V1 1.19m/s AO Mean GR. 7mmHg V2 1.88m/s AO Peak GR. 14mmHg LVOT Diameter 2.0 (1.8-2.4cm) Doppler SENG 1.99cm2 Pulmonic Valve V2 0.85m/s Tricuspid Valve TR Velocity 3.20m/s RVSP 49mmHg Other Information Quality : Technically Limited Rhythm : Technically limited study due to body habitus. Conclusion lvef 65% normal rv fucntion no severe valve abnormaliteis noted left atrium enlarged SIGNED BY: ALBERTO TEJEDA MD SIGNED DATE/TIME: 11/29/24 3803 Condition at Discharge: Stable Final Diagnosis/Problems List #hypertensive crisis #Chest pain possible NSTEMI type 2 #Rule out stable angina #chronic CHF HfpEf #Ruled out pulmonary embolism #vit d deficiency #SHAQ on CKD 3b #DM type 2 with hyperglycemia #hyperlipedemia #Obesity #Generalized Anxiety #Depression Discharge Disposition: Home Discharge Instruct/Medications Diet: Consistent carbohydrate, Cardiac 2g Na,low cholest Activity: No Restrictions, As Tolerated Follow Up/Referral: Follow up with PCP in 10 days Follow up in discharge clinic within 1 week Medications: Tab atorvastatin 40 mg orally daily at night Stop metoprolol and nifedipine, instead tab Coreg 6.25 mg twice daily tab Jardiance 10mg once daily Continue losartan, rest of the home medications Scheduled Aspirin (Aspirin Low Dose), 81 MG PO DAILY Atorvastatin Calcium (Atorvastatin Calcium), 80 MG PO HS Bupropion Hcl (Bupropion Hcl Xl), 1 TAB PO DAILY, (Reported) Carvedilol (Coreg), 6.25 MG PO Q12HR Cyclobenzaprine Hcl (Cyclobenzaprine Hcl), 10 MG PO [id number], (Reported) Divalproex Sodium (Divalproex Sodium), 1 TAB PO DAILY, (Reported) Empagliflozin (Jardiance), 10 MG PO DAILY Ergocalciferol (Vitamin D 17601 Unit), 50,000 UNIT PO Q7D Fluoxetine Hcl (Fluoxetine Hcl), 1 CAP PO DAILY, (Reported) Glimepiride (Glimepiride), 1 TAB PO DAILY, (Reported) Lamotrigine (Lamotrigine), 1 TAB PO BID, (Reported) Levalbuterol HCl (Levalbuterol HCl), 0.625 MG NEB Q6HR Losartan Potassium & Hydrochlo (Hyzaar), 1 TAB PO DAILY, (Reported) Pantoprazole Sodium Sesquihydr (Pantoprazole Sodium), 40 MG PO DAILY Quetiapine Fumerate (Quetiapine Fumarate), 1 TAB PO BID, (Reported) Ziprasidone Hydrochloride (Geodon), 1 CAP PO DAILY, (Reported) Scheduled PRN Hydrocodone-Acetaminophen (Hydrocodone Bitartrate/AC 5-325 mg), 1 TAB PO Q8HP PRN Miscellaneous Medications Alprazolam (Alprazolam), PO, (Reported) Discontinued Medications Metoprolol Tartrate (Lopressor), 12.5 MG PO BID Nifedipine (Nifedipine Er), 60 MG PO DAILY Discharge Statement: "Patient was advised to return to the ER or call 911 if any headaches, dizziness, shortness of breath, chest pain, abdominal pain, bleeding, fevers, or worsening of medical condition. Patient was counseled about treatment plan, medications, possible side effects, patientverbalized understanding. All questions were answered to the best of my ability. This discharge took greater then 30 minutes in planning, reviewing documentation, counseling the patient, and discussing with other team members." ASSESSMENT ASSESSMENT Assessment #hypertensive crisis #Chest pain possible NSTEMI type 2 #Rule out stable angina #chronic CHF HfpEf #R/O pulmonary embolism #vit d deficiency #SHAQ on CKD 3b #DM type 2 with hyperglycemia #hyperipedemia #Obesity #Generalized Anxiety #Depression Date of Service: Nov 30, 2024 Billing Provider: SHARDA CATES MD Common Visit Codes: 17867-WXD/OBS DISCH DAY >30min FARNAZ ZAVALETA RESIDENT Dec 01, 2024 12:32 SHARDA CATES MD Dec 02, 2024 21:18
[2024-12-01] MEDS ORDERED: LIDOCAINE 5% TOPICAL PATCH TOP SCH (19:00)
--- NOTE | 2024-12-02 17:20 | ECG ---
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
--- NOTE | 2024-12-04 07:21 | ECG ---
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
== END 2024-12-01 09:10 | disposition home or self-care (01) | DRG 199 ==
LOC: ER 16:01 → OVERFLOW 11-29 02:20 → TELE-CENTR 11-29 22:20
PROVIDERS: ADMIT Student in an Organized Health Care Education/Training Program; ATTEND Student in an Organized Health Care Education/Training Program
DX: I16.1 Hypertensive emergency (principal); N17.0 Acute kidney failure with tubular necrosis; I21.A1 Myocardial infarction type 2; I50.32 Chronic diastolic (congestive) heart failure; E78.5 Hyperlipidemia, unspecified; F41.1 Generalized anxiety disorder; E66.9 Obesity, unspecified; E55.9 Vitamin D deficiency, unspecified; N18.32 Chronic kidney disease, stage 3b; E11.65 Type 2 diabetes mellitus with hyperglycemia; F31.9 Bipolar disorder, unspecified; G89.29 Other chronic pain; E11.22 Type 2 diabetes mellitus with diabetic chronic kidney disease; I13.0 Hypertensive heart and chronic kidney disease with heart failure and stage 1 through stage 4 chronic kidney disease, or unspecified chronic kidney disease; Z79.82 Long term (current) use of aspirin; Z79.899 Other long term (current) drug therapy; Z98.891 History of uterine scar from previous surgery; Z87.891 Personal history of nicotine dependence; Z83.3 Family history of diabetes mellitus; Z82.49 Family history of ischemic heart disease and other diseases of the circulatory system; Z91.199 Patient's noncompliance with other medical treatment and regimen due to unspecified reason; Z79.84 Long term (current) use of oral hypoglycemic drugs; Z86.73 Personal history of transient ischemic attack (TIA), and cerebral infarction without residual deficits; Z68.35 Body mass index [BMI] 35.0-35.9, adult
CPT/HCPCS: 36415; 71045; 80048; 80053; 80061; 80307; 81001; 82306; 82570; 82962; 83036; 83880; 83970; 84100; 84156; 84300; 84443; 84484; 85025; 85379; 93005; 93306; 93970; G0378; J1815